=== PATIENT | male | born 1940 | race Caucasian/White ===

== ENCOUNTER → 2017-12-12 09:28 | Outpatient (CLI) | payer MEDICARE, BC, SELFPAY ==
[2017-12-12 10:37] LABS: PSA,Total - Annual Screen 2.33 ng/mL (0.00-4.00)
== END ==
PROVIDERS: Family Provider Family Medicine; PCP Family Medicine; Visit Provider Urology
DX: Z12.5 Encounter for screening for malignant neoplasm of prostate (principal)
CPT/HCPCS: 36415; 84153; G0103

== ENCOUNTER → 2017-12-18 08:57 | Outpatient (CLI) | payer MEDICARE, BC, SELFPAY ==
[2017-12-18 10:11] LABS: AST(SGOT) 14 U/L (15-37); Alanine Aminotransfer ALT/SGPT 20 U/L (16-61); Albumin, Serum 3.7 g/dL (3.2-5.0); Alkaline Phosphatase 71 U/L (45-117); Bilirubin, Direct 0.13 mg/dL (0.00-0.30); Cholesterol 188 mg/dL (200); Globulin 3.3 g/dL (2.2-4.2); High Density Lipoprotein 62 mg/dL; Triglycerides 164 mg/dL; Very Low Density Lipoprotein 33 mg/dL (5-40)
== END ==
PROVIDERS: Family Provider Family Medicine; PCP Family Medicine; Visit Provider Internal Medicine Cardiovascular Disease
DX: I25.2 Old myocardial infarction (principal)
CPT/HCPCS: 36415; 80061; 80076

== ENCOUNTER 2017-12-26 13:09 | Emergency (ER) | payer MEDICARE, BC, SELFPAY ==
[2017-12-26 13:11] VITALS: BP 133/73; PULSE 76; RESP 16; TEMP 36.8; O2SAT 96; BMI 26.7
--- NOTE | 2017-12-26 13:36 | NURSING ---
NO LW OR POA
--- NOTE | 2017-12-26 14:23 | RAD_ITS ---
STUDY: X-RAY - RIGHT SHOULDER REASON FOR EXAM: Male, 77 years old. Chronic left shoulder pain. Decreased range of motion. TECHNIQUE: 4 view(s) of the shoulder. COMPARISON: None. FINDINGS: There is mild degenerative arthrosis of the glenohumeral articulation. There is hypertrophic osteoarthrosis of the acromioclavicular joint with inferior osseous spur formation. Normal acromion. Normal humeral head and visualized proximal humerus. The soft tissue structures are unremarkable. Normal visualized pulmonary apex. RAD/Shoulder min 2 Views IMPRESSION: Degenerative changes of the shoulder joint. Electronically Signed: Mode Serrano MD at 15:39 EST Tel [phone], Service support ,
[2017-12-26] MEDS: HYDROcodone Bitartrate/Apap 5/325 Tablet PO (14:35)
--- NOTE | 2017-12-26 15:08 | ED.VISSUMM ---
- ER Visit Summary Date of Service: 12/26/17 Chief Complaint: Acute right shoulder pain throwing an object History of Present Illness: The patient is a 77 M who is right-handed. He presents with right shoulder pain throwing an object. He localizes the pain to the proximal right shoulder. He has history of rheumatoid arthritis. He denies history of rotator cuff injury or impingement syndrome. He denies any paresthesia, anesthesia or motor weakness. He denies cough, shortness of breath, difficulty breathing or pleuritic chest pain. He denies chest heaviness, tightness or any type of discomfort. There is no history of direct trauma. Physical Examination: Appears uncomfortable. Blood pressure slightly elevated 133/73. Patient complains of pain palpation over the proximal humerus. He is able to AB duct to 90?. Abduction past 90? because of discomfort. He has a negative drop test. Axillary, median, radial and ulnar function intact. There is no pain the patient over the AC joint or clavicle. There is no outward signs of direct trauma. Heart is regular without murmur, gallop or rub. S1 and S2 are normal. Lungs are clear to auscultation with good movement of air bilaterally. Test Results: Three-view x-ray of the shoulder was obtained which reveals arthritic changes with no evidence of fracture, subluxation, dislocation or AC separation. Emergency Department Course and Treatment: Patient is elderly with history of diabetes and other medical problems he received a dose of [place] and a x-ray was obtained. Treatment Plan: Since there is no acute findings on x-ray will refer to orthopedics for reevaluation. He was referred to Dr. Henry Foster. This may represent a partial rotator cuff tear. Disposition: Analgesia, appropriate home-going instruction and outpatient orthopedic follow-up Impression: Acute right shoulder pain Probable rotator cuff partial tear This note was generated with [employer] dictation software. It may contain incorrect words, spelling, and punctuation that were not noted in review of the chart prior to signing ED Disposition - Plan for ED Patient: Disposition: Home or Assisted Living Chief Complaint: Upper Extremity Injury Instructions: ED Shoulder Pain UKO, ED Torn Rotator Cuff Prescriptions: Hydrocodone Bitart/Apap 5-325 [[place] 5MG-325MG] 1 tab PO Q6H PRN PRN 3 Days #10 tab PRN Reason: Pain Referrals: Lc Dowling MD [Primary Care Provider] - Henry Foster DO [STAFF PHYSICIAN] - 5-7 Days
--- NOTE | 2017-12-26 15:18 | ED.DCSUM_ITS ---
- ER Visit Summary Date of Service: 12/26/17 Chief Complaint: Acute right shoulder pain throwing an object History of Present Illness: The patient is a 77 M who is right-handed. He presents with right shoulder pain throwing an object. He localizes the pain to the proximal right shoulder. He has history of rheumatoid arthritis. He denies history of rotator cuff injury or impingement syndrome. He denies any paresthesia, anesthesia or motor weakness. He denies cough, shortness of breath , difficulty breathing or pleuritic chest pain. He denies chest heaviness, tightness or any type of discomfort. There is no history of direct trauma. Physical Examination: Appears uncomfortable. Blood pressure slightly elevated 133/73. Patient complains of pain palpation over the proximal humerus. He is able to AB duct to 90?. Abduction past 90? because of discomfort. He has a negative drop test. Axillary, median, radial and ulnar function intact. There is no pain the patient over the AC joint or clavicle. There is no outward signs of direct trauma. Heart is regular without murmur, gallop or rub. S1 and S2 are normal. Lungs are clear to auscultation with good movement of air bilaterally. Test Results: Three-view x-ray of the shoulder was obtained which reveals arthritic changes with no evidence of fracture, subluxation, dislocation or AC separation. Emergency Department Course and Treatment: Patient is elderly with history of diabetes and other medical problems he received a dose of [place] and a x-ray was obtained. Treatment Plan: Since there is no acute findings on x-ray will refer to orthopedics for reevaluation. He was referred to Dr. Henry Foster. This may represent a partial rotator cuff tear. Disposition: Analgesia, appropriate home-going instruction and outpatient orthopedic follow-up Impression: Acute right shoulder pain Probable rotator cuff partial tear This note was generated with [employer] dictation software. It may contain incorrect words, spelling, and punctuation that were not noted in review of the chart prior to signing ED Disposition - Plan for ED Patient: Disposition: Home or Assisted Living Chief Complaint: Upper Extremity Injury Instructions: ED Shoulder Pain UKO, ED Torn Rotator Cuff Prescriptions: Hydrocodone Bitart/Apap 5-325 [[place] 5MG-325MG] 1 tab PO Q6H PRN PRN 3 Days #10 tab PRN Reason: Pain Referrals: Lc Dowling MD [Primary Care Provider] - Henry Foster DO [STAFF PHYSICIAN] - 5-7 Days
[2017-12-26 15:31] VITALS: BP 115/84; RESP 18
== END 2017-12-26 15:33 | disposition home or self-care (01) ==
PROVIDERS: Emergency Provider Emergency Medicine; Family Provider Family Medicine; PCP Family Medicine
DX: S46.011A Strain of muscle(s) and tendon(s) of the rotator cuff of right shoulder, initial encounter (principal); M25.511 Pain in right shoulder; X50.0XXA Overexertion from strenuous movement or load, initial encounter; Y93.9 Activity, unspecified; Y92.9 Unspecified place or not applicable; Y99.9 Unspecified external cause status; E11.9 Type 2 diabetes mellitus without complications; M06.9 Rheumatoid arthritis, unspecified; I10 Essential (primary) hypertension; N40.0 Benign prostatic hyperplasia without lower urinary tract symptoms; Z79.84 Long term (current) use of oral hypoglycemic drugs; Z79.82 Long term (current) use of aspirin; Z79.899 Other long term (current) drug therapy; I25.2 Old myocardial infarction
CPT/HCPCS: 73030; 99283

== ENCOUNTER → 2018-04-27 14:32 | Outpatient (CLI) | payer MEDICARE, BC, SELFPAY ==
--- NOTE | 2018-04-27 14:35 | ECHOD_ITS ---
Reason For Study: ARRHYTHMIA Procedure This was a 2D Doppler, Color Flow transthoracic echocardiogram. The study was technically difficult. Due to arrhythmia. Exam performed in department. Left Ventricle Normal size and thickness. The estimated ejection fraction is 65 %. Stage 1 diastolic dysfunction. No regional wall motion abnormalities noted. Right Ventricle Normal size and thickness. Normal systolic function. Atria The left atrium is mildly enlarged. Normal right atrium. Normal atrial septum. Mitral Valve The mitral valve is structurally normal. No prolapse or stenosis seen. Trivial mitral valve insufficiency. Tricuspid Valve Normal tricuspid valve. Trivial tricuspid valve insufficiency. Right ventricular systolic pressure estimated to be 30 mmHg. Aortic Valve Normal aortic valve. Trisinus/trileaflet aortic valve. Pulmonic Valve Normal pulmonic valve. Trivial pulmonic valve insufficiency. Great Vessels Normal aortic root. Normal arch. Normal inferior vena cava. Inferior vena cava collapse with sniff. Pericardium/Pleural No pericardial effusion. MMode/2D Measurements & Calculations LVIDd: 4.7 cm IVSd: 1.1 cm Ao root diam: 3.3 cm LVIDs: 3.4 cm LVPWd: 1.1 cm LA dimension: 3.8 cm RVDd: 3.5 cm FS: 28.9 % LAV(MOD-bp): 67.2 ml LA A4 area: 22.6 cm2 RA A4 area: 15.9 cm2 LAV(MOD-bp) Indexed: 34.1 ml/m2 LAV(MOD-sp2): 63.3 ml LAV(MOD-sp4): 69.0 ml Doppler Measurements & Calculations MV E max jose: 99.3 cm/sec Lat Peak E' Jose: 8.9 cm/sec Med Peak E' Jose: 9.4 cm/sec MV A max jose: 147.3 cm/sec E/E' lat: 11.1 E/E' med: 10.5 MV E/A: 0.67 Ao V2 max: 125.5 cm/sec LV V1 max: 90.8 cm/sec PA V2 max: 99.3 cm/sec Ao max P.3 mmHg LV V1 max P.3 mmHg TR max jose: 250.1 cm/sec TR max P.0 mmHg Interpretation Summary The estimated ejection fraction is 65 %. Stage 1 diastolic dysfunction. The left atrium is mildly enlarged. Trivial tricuspid valve insufficiency. Right ventricular systolic pressure estimated to be 30 mmHg. There is no comparison study available. Ordering Physician: Bo Song Referring Physician: Lc Dowlign Performed By: Bernadine Huang RDCS, RVT
== END ==
PROVIDERS: Family Provider Family Medicine; PCP Family Medicine; Visit Provider Internal Medicine Cardiovascular Disease
DX: I47.2 Ventricular tachycardia (principal); R00.1 Bradycardia, unspecified; I25.10 Atherosclerotic heart disease of native coronary artery without angina pectoris; I25.2 Old myocardial infarction; Z95.5 Presence of coronary angioplasty implant and graft
CPT/HCPCS: 93306

== ENCOUNTER → 2018-05-04 10:17 | Outpatient (CLI) | payer MEDICARE, BC, SELFPAY ==
--- NOTE | 2018-05-04 10:19 | STE_ITS ---
Reason For Study: ARRHYTHMIA Stress Results Protocol: Vic Protocol Maximum Predicted HR: 144 bpm Target HR: 122 bpm% Max imum Predicted HR: 108 % DurationHeart Rate Stage (mm:ss) (bpm) BP BASELINE 75 138/68 STAGE 1 3:00 98 160/68 STAGE 2 3:00 11 3 172/62 STAGE 3 1:30 15 5 / RECOVERY 92 130/60 Stress Duration: 7:30 mm:ss Maximum Stress HR: 155 bpm Baseline Echocardiogram Findings The estimated ejection fraction is 60 %. Stress Echo Wall motion Data Resting WMIntermediate WMStress WM Resting Wall Motion Wall Motion Stress No regional wall motion No regional wall motion abnormalities noted. abnormalities noted. EKG Data Normal intervals are noted. The patient exercised according to the regular Vic protocol for a total duration of 7:30. The maximum heart rate attained was 146 beats per minute. This was 101% of maximum predicted heart rate. The patient exercised into stage 3 of the Vic protocol. During stress, there were no ST or T wave changes noted to suggest ischemia. Interpretation Summary The estimated ejection fraction is 60 %. Normal, adequate, treadmill echocardiogram. Negative for ischemia by EKG and echocardiographic criteria. No anginal symptoms noted. Frequent PVCs during exercise and into recovery. Average exercise capacity for age. Appropriate blood pressure response to exercise. Final LVEF is 75%. No complications. Ordering Physician: Bo Song Referring Physician: Bo Song Performed By: Jon Whitaker RCS
== END ==
PROVIDERS: Family Provider Family Medicine; PCP Family Medicine; Visit Provider Internal Medicine Cardiovascular Disease
DX: I47.2 Ventricular tachycardia (principal); I25.10 Atherosclerotic heart disease of native coronary artery without angina pectoris; I49.8 Other specified cardiac arrhythmias; Z95.5 Presence of coronary angioplasty implant and graft
CPT/HCPCS: 93017; 93350

== ENCOUNTER → 2018-07-04 13:00 | Outpatient (CLI) | payer MEDICARE, BC, SELFPAY ==
--- NOTE | 2018-07-04 13:04 | RAD_ITS ---
STUDY: X-RAY - PELVIS AND RIGHT HIP REASON FOR EXAM: Male, 77 years old. Pain TECHNIQUE: Radiological exam, hip, unilateral, with pelvis when performed; 2 or 3 views. COMPARISON: None. FINDINGS: There is a non-specific bowel gas pattern. Normal visualized soft tissue structures. Normal bilateral iliac wings, sacroiliac joints and visualized sacrum. Normal bilateral superior and inferior pubic rami. Normal pubic symphysis. Normal bilateral ischial tuberosities. Normal visualized femoral head. Normal acetabulum. Normal hip joint. RAD/HIP, UNI W/ Pelvis 2-3 Views IMPRESSION: Normal x-ray examination of the pelvis and hip. Electronically Signed: Kenneth Youssef MD at 4:36 EDT , Service support ,
== END ==
PROVIDERS: Family Provider Family Medicine; PCP Family Medicine; Visit Provider Family Medicine
DX: M25.551 Pain in right hip (principal)
CPT/HCPCS: 73502

== ENCOUNTER → 2018-10-24 15:26 | Outpatient (CLI) | payer MEDICARE, BC, SELFPAY ==
[2018-10-24 18:39] LABS: Anion Gap 8 (5-15); BUN 24 mg/dL (7-18); BUN/Creat Ratio 29.2 RATIO (10-20); Calcium,Total 8.7 mg/dL (8.5-10.1); Chloride 103 mmol/L (98-107); Creatinine, Serum 0.82 mg/dL (0.70-1.30); EST Glomerular Filtration Rate 97 mL/min (>60); Est Glom Filt Rate - Afr Amer 117 mL/min (>60); Glucose 222 mg/dL (74-106); Sodium Level 137 mmol/L (136-145); Thyroid Stim Hormone (TSH) 1.87 uIU/mL (0.358-3.74)
[2018-10-24 18:54] LABS: Vitamin D,25 Hydroxy 20.4 ng/mL (29.95-100.01)
== END ==
PROVIDERS: Family Provider Family Medicine; PCP Family Medicine; Visit Provider Family Medicine
DX: E11.9 Type 2 diabetes mellitus without complications (principal); I49.3 Ventricular premature depolarization; E55.9 Vitamin D deficiency, unspecified
CPT/HCPCS: 36415; 80048; 82306; 83735; 84443

== ENCOUNTER → 2018-12-03 09:21 | Outpatient (CLI) | payer MEDICARE, BC, SELFPAY ==
[2018-11-26 15:23] VITALS: BMI 27.1
[2018-12-03 11:05] LABS: AST(SGOT) 13 U/L (15-37); Alanine Aminotransfer ALT/SGPT 23 U/L (16-61); Albumin, Serum 3.7 g/dL (3.2-5.0); Alkaline Phosphatase 91 U/L (45-117); Bilirubin, Direct 0.17 mg/dL (0.00-0.30); Cholesterol 170 mg/dL (200); Globulin 3.6 g/dL (2.2-4.2); High Density Lipoprotein 54 mg/dL; Protein, Total 7.3 g/dL (6.4-8.2); Triglycerides 293 mg/dL; Very Low Density Lipoprotein 59 mg/dL (5-40)
== END ==
PROVIDERS: Family Provider Family Medicine; PCP Family Medicine; Referring Provider Internal Medicine Cardiovascular Disease; Visit Provider Internal Medicine Cardiovascular Disease
DX: E78.5 Hyperlipidemia, unspecified (principal); I25.2 Old myocardial infarction
CPT/HCPCS: 36415; 80061; 80076

== ENCOUNTER 2018-12-14 16:47 | Inpatient (IN) | payer MEDICARE, BC, SELFPAY ==
[2018-11-26 15:23] VITALS: BMI 27.1
[2018-12-14] VITALS (10 sets, daily range): BP systolic 123–160; BP diastolic 54–78; PULSE 89–100; RESP 16–25; TEMP 37.1–38.4; O2SAT 93–98; BMI 28.1; BMI 28.2; BMI 27.3
--- NOTE | 2018-12-14 17:11 | RAD_ITS ---
STUDY: X-RAY CHEST REASON FOR EXAM: Male, 77 years old. Chest pain. TECHNIQUE: Single AP portable upright view of the chest. COMPARISON: IV contrast-enhanced CT chest October 09, 2015. FINDINGS: Moderate elevation of the right diaphragm. Vague density in the right base just above the diaphragm is likely subsegmental atelectasis or scarring. There is no demonstrated pleural abnormality. Normal size heart. Normal mediastinum and jean-claude. Normal visualized pulmonary arteries. Normal visualized aortic arch and descending thoracic aorta. There are multilevel degenerative changes of the visualized thoracic spine. Normal visualized ribs, clavicles, and shoulders. There is no demonstrated abnormality of the visualized soft tissue structures of the upper abdomen. RAD/Chest 1 View (Portable) IMPRESSION: Minor subsegmental scarring or atelectasis in the right lung base with mild associated elevation of the right diaphragm. Electronically Signed: Ricardo Jacinto MD at 18:13 EST , Service support ,
--- NOTE | 2018-12-14 17:11 | EKG12_ITS ---
Test Reason : CP Blood Pressure : / mmHG Vent. Rate : 098 BPM Atrial Rate : 098 BPM P-R Int : 192 ms QRS Dur : 080 ms QT Int : 322 ms P-R-T Axes : 056 008 044 degrees QTc Int : 411 ms Sinus rhythm with occasional Premature ventricular complexes Possible Left atrial enlargement Left ventricular hypertrophy Abnormal ECG Confirmed by MIC MONSIVAIS, MARCIE ([id number]), web content editor SONYA JOHNSON ([id number]) on 12/18/2018 4:44:03 PM Referred By: ANIBAL Confirmed By:MARCIE HAILE MD
--- NOTE | 2018-12-14 17:30 | ED.DCSUM_ITS ---
- ER Visit Summary Date of Service: 12/14/18 Chief Complaint: Chest pain and generalized weakness History of Present Illness: The patient is a 77 M your prior NM with one cardiac stent. Takes a daily aspirin. Patient states he has had chest pain like someone pushing on his chest for the last couple days. Intermittent. Currently his pain is a 2 out of 10 was previously 6-8 out of 10. He denies any history of DVT or PE. He denies any leg pain or swelling. No recent travel, surgery or immobilization. Also he is developed a fever today. Denies nausea, vomiting or diarrhea. He has had some chills. Just the other day had a cystoscopy. Physical Examination: Older male no acute distress. Vital signs stable. He does have a fever of 101. Pulse ox 94% on room air no hypoxia. No distress. H EENT exam is unremarkable. Neck nontender. No lymphadenopathy. Lungs clear to auscultation bilaterally. Heart regular rhythm no murmur rate about 95. Chest wall nontender. Abdomen soft nontender. Normal bowel sounds no peritoneal signs. Patient is moving all 4 extremities. Calves are nontender without edema or cords. Back is nontender. Equal symmetrical radial pulses. Neurologically is awake and alert with no focal deficits. Test Results: EKG shows a sinus rhythm at a rate of 98 with occasional PVCs. No signs of NM or ischemia. Chest x-ray portable one view shows no acute abnormality. Elevated right hemidiaphragm. Read both by myself and radiologist. CBC normal white count of 10. Hemoglobin 16. Chemistries unremarkable. UA no signs of infection. Troponin normal. Emergency Department Course and Treatment: Cardiac workup along with a urinalysis for his fever. Treatment Plan: Repeat exam patient is doing well at 1840. We discussed all his test results. I also spoke to the hospitalist about admission to be ruled out. Disposition: Admission Impression: Acute chest pain of uncertain etiology History of CAD with prior NM and one stent Fever This note was generated with [employer] dictation software. It may contain incorrect words, spelling, and punctuation that were not noted in review of the chart prior to signing ED Disposition - Plan for ED Patient: Referrals: Lc Dowling MD [Primary Care Provider] -
[2018-12-14 17:40] LABS: Absolute Lymphocyte Count 0.52 X10^3/ul (0.83-4.51); Absolute Neutrophil Count 9.6 X10^3/uL (2.0-7.7); Basophil# 0.01 X10^3/uL; Basophil% 0.1 % (0-1); Hematocrit 46.7 % (40-54); Lymphocyte # 0.52 X10^3/ul (4.0); Lymphocyte % 4.9 % (19-41); Mean Corp Hgb Conc 34.3 g/gl (32-36); Mean Corpuscular Hgb 31.7 pg (27.0-32.0); Mean Corpuscular Volume 92.7 fL (80-94); Mean Platelet Vol. 10.8 fl (6.2-12.0); Monocyte# 0.51 X10^3/uL; Monocyte% 4.8 % (0-10); Neutrophil # 9.61 X10^3/uL (2.7-7.7); Platelet Count 214 K/mm3 (150-450); RBC Distribution Width CV 12.5 % (11.6-14.6); RBC Distribution Width SD 41.5 fl (35.1-43.9); Red Blood Count 5.04 M/mm3 (4.6-6.2); White Blood Count 10.7 K/mm3 (4.4-11.0)
[2018-12-14 17:42] LABS: Differential Indicated SCAN CRITERIA MET; POSITIVE COUNT NO; POSITIVE DIFFERENTIAL YES; POSITIVE MORPHOLOGY NO
[2018-12-14 17:45] LABS: Anion Gap 9 (5-15); BUN 20 mg/dL (7-18); BUN/Creat Ratio 20.5 RATIO (10-20); Calcium,Total 9.3 mg/dL (8.5-10.1); Chloride 102 mmol/L (98-107); Creatinine, Serum 0.97 mg/dL (0.70-1.30); EST Glomerular Filtration Rate 79 mL/min (>60); Est Glom Filt Rate - Afr Amer 96 mL/min (>60); Estimated Creatinine Clearance 62.68 ml/min; Glucose 270 mg/dL (74-106); Potassium 4.2 mmol/L (3.5-5.1); Sodium Level 137 mmol/L (136-145)
[2018-12-14 18:01] LABS: Bacteria 0 SEEN /hpf (None Seen); Red Blood Cells-Urine 0 SEEN /hpf (0-5); Squamous Epithelial Cells - UA 0 SEEN /hpf (0-5)
[2018-12-14 18:08] LABS: Color, Urine Yellow (Yellow); Glucose, Dipstick 250 mg/dl (Normal); Ketone-Dipstick 5 mg/dl (Negative); Leukocyte Esterase-Dipstick Negative /ul (Negative); Nitrite-Dipstick Negative (Negative); Occult Blood-Urine 10 /ul (Negative); Protein-Dipstick 30 mg/dl (Negative); Specific Gravity, Urine 1.025 (1.002-1.030); Urine Bilirubin Dipstick Negative (Negative); Urine Clarity Clear (Clear); Urine Urobilinogen Normal (Normal)
[2018-12-14 18:16] LABS: White Blood Cells 0-5 SEEN /hpf (0-5)
[2018-12-14 18:17] LABS: Mucous, Urine RARE /hpf (<or=2+)
[2018-12-14 18:23] LABS: Platelet Estimate ADEQUATE (ADEQ); Red Cell Morphology NORM C+C NORMAL (NORM C&C)
--- NOTE | 2018-12-14 19:53 | EKG12_ITS ---
Test Reason : CP ADMISSION Blood Pressure : / mmHG Vent. Rate : 085 BPM Atrial Rate : 085 BPM P-R Int : 192 ms QRS Dur : 088 ms QT Int : 348 ms P-R-T Axes : 062 012 042 degrees QTc Int : 414 ms Sinus rhythm with frequent Premature ventricular complexes Possible Left atrial enlargement Borderline ECG Confirmed by YAMILEX MONSIVAIS, ESTEPHANIE ([id number]), newspaper editor managing SONYA JOHNSON ([id number]) on 12/19/2018 10:57:20 AM Referred By: CORY Confirmed By:ESTEPHANIE KAMINSKI MD
--- NOTE | 2018-12-14 20:16 | PCM.HP.STD ---
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 He has a history of coronary artery disease with a stent to the right coronary artery in 2007 in [place]. He had a stress echo done here at this institution in April 2018 which was normal. And he saw his cut lace machine operator in early November and was doing okay without any chest pain. 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 He denies any radiation of this pain though he says that it is somewhat palpatory all over his rib cage. In the ER he was found to be febrile though he had a normal urine analysis and chest x-ray and denies any recent respiratory illness. He also had an EKG which was unremarkable and a normal initial troponin. There is a family history of coronary artery disease with his father having his first heart attack in his late 40s early 50s. Past Medical History Past Medical History (Chronic Problems): Chronic Problems (Last Reviewed 11/26/18 @ 15:16 by Teodora Merlos) H/O right coronary artery stent placement (Chronic 06/09/08) MARK to RCA w 3.0 x 23 mm Promus 06/09/2008 @ [facility] in [place], [place] Old myocardial infarction (Chronic) 2007 Sinus bradycardia (Chronic) Ventricular tachycardia (Chronic) Hyperlipidemia (Chronic) Atherosclerotic heart disease of [place] coronary artery without angina pectoris (Chronic) MARK to RCA w 3.0 x 23 mm Promus 06/09/2008 BPH (benign prostatic hyperplasia) (Chronic) HTN (hypertension) (Chronic) Diabetes mellitus (Chronic) Medical History: Medical History (Last Reviewed 11/26/18 @ 15:16 by Teodora Merlos) Old myocardial infarction (Chronic) I25.2 2008 Sinus bradycardia (Chronic) R00.1 Ventricular tachycardia (Chronic) I47.2 Hyperlipidemia (Chronic) E78.5 Atherosclerotic heart disease of [place] coronary artery without angina pectoris (Chronic) I25.10 MARK to RCA w 3.0 x 23 mm Promus 06/09/2008 HTN (hypertension) (Chronic) I10 Diabetes mellitus (Chronic) E11.9 Allergies amoxicillin Allergy (Verified 12/14/18 16:54) Unknown lactose Adverse Reaction (Intermediate, Verified 12/14/18 16:54) GI issues Tyrovml-Ned-Gfp Reductase Inhibitor Adverse Reaction (Verified 12/14/18 16:54) Myalgia Home Medications: Ambulatory Orders Medication Instructions Recorded Metformin HCl [Glucophage] 500 mg PO TIDCM 10/06/15 aspirin 325 mg tablet 325 mg PO DAILY 11/03/17 tramadol 50 mg tablet 50 mg PO DAILY 11/03/17 Cholecalciferol (Vitamin D3) 2,000 unit PO DAILY 12/14/18 [Vitamin D3] Ezetimibe 10 mg PO DAILY 12/14/18 Naproxen Sodium [Aleve] 220 mg PO PRN PRN 12/14/18 Surgical History: Surgical History (Last Reviewed 11/26/18 @ 15:16 by Tedoora Merlos) H/O right coronary artery stent placement (Chronic) Onset Date: 06/09/08 Z95.5 MARK to RCA w 3.0 x 23 mm Promus 06/09/2008 @ [facility] in [place], [place] History of left heart catheterization Onset Date: 11/14/13 Z98.890 @ [facility] Hx of cholecystectomy Z98.890, Z90.49 S/P TURP (transurethral resection of prostate) Onset Date: ~2014 Z90.79 Smoking Status: Former smoker Tobacco Use: Cigarettes Alcohol: None Drugs: None - *Family History Maternal Family History: Family History (Last Reviewed 11/26/18 @ 15:16 by Teodora Merlos) Father CAD (coronary artery disease) Mother CAD (coronary artery disease) Hyperlipidemia Brother CAD (coronary artery disease) Diabetes Sister Hypertension Review of Systems Constitutional: Reports: Fatigue. Denies: Chills, Fever, Weight Change HEENT: Denies: Head Aches, Sinus Congestion, Sinus Drainage Cardiovascular: Reports: Chest Pain. Denies: Palpitations Respiratory: Reports: Shortness of Breath. Denies: Cough, Shortness of breath at rest, Sputum production Gastrointestinal: Denies: Abdominal Pain, Nausea, Vomiting Genitourinary: Denies: Dysuria Musculoskeletal: Reports: Joint stiffness, Muscle pain. Denies: Joint Pain, Joint Tenderness Skin: Denies: Rash, Wounds Neurological: Denies: Numbness, Tingling, Focal weakness Psychiatric: Denies: Anxiety, Depression Hematologic/ Lymphatic: Denies: Easy Bruising, Easy Bleeding VTE Information - Inpt Only VTE Present on Admission: No Patient Problems: Active and Suspected Problems (Last Reviewed 11/26/18 @ 15:16 by Teodora Merlos) Chest pain (Acute) - Physical Exam General: Alert, Oriented x3, Cooperative, No apparent distress HEENT: Atraumatic, PERRLA, EOMI, Normocephalic Oral: Moist Mucosa Neck: Supple, No JVD, Trachea Midline Lungs: Clear to auscultation, Normal air movement, No rhonchi, No wheeze, No rales Cardiovascular: Regular rate, Regular Rhythm, Normal S1, Normal S2, No murmurs Abdomen: Soft, Non Tender, Non-Distended, No Hepato-splenomegaly Extremities: No edema, Capillary Refill Less than 3 Seconds Skin: No rashes, No breakdown Neurological: Neuro grossly intact, Sensory exam intact to light touch and pain Psych/Mental Status: Normal Affect, Appropriate Vital Signs Temp Pulse Resp BP Pulse Ox 99.5 F H 92 16 124/54 H 94 12/14/18 19:56 12/14/18 19:56 12/14/18 19:56 12/14/18 19:56 12/14/18 19:56 Oxygen Delivery Method Room Air Weight: 179 lb 7.3 oz Body Mass Index (BMI) 27.3 Finger Stick Blood Glucose 146 Laboratory Tests Past 24 Hrs 12/14/18 12/14/18 12/14/18 16:50 16:50 17:55 WBC 10.7 RBC 5.04 Hgb 16.0 Hct 46.7 MCV 92.7 MCH 31.7 MCHC 34.3 RDW 12.5 RDW Differential 41.5 Plt Count 214 MPV 10.8 Immature Gran % (Auto) 0.200 Neut % (Auto) 90.0 H Lymph % (Auto) 4.9 L Chambers % (Auto) 4.8 Eos % (Auto) 0.0 Baso % (Auto) 0.1 Absolute Neuts (auto) 9.6 H Absolute Lymphs (auto) 0.52 L Total Counted Not Reportable Differential Comment Platelet Estimate ADEQUATE RBC Morphology NORM C+C Sodium 137 Potassium 4.2 Chloride 102 Carbon Dioxide 26.0 Anion Gap 9 BUN 20 H Creatinine 0.97 Estim Creat Clear Calc 62.68 Est GFR (MDRD) Af Amer 96 Est GFR (MDRD) Non-Af 79 BUN/Creatinine Ratio 20.5 H Glucose 270 H Calcium 9.3 Troponin I < 0.015 Urine Color Yellow Urine Clarity Clear Urine pH 5.0 Ur Specific [place] 1.025 Urine Protein 30 H Urine Glucose (UA) 250 H Urine Ketones 5 H Urine Occult Blood 10 H Urine Nitrite Negative Urine Bilirubin Negative Urine Urobilinogen Normal Ur Leukocyte Esterase Negative Urine RBC 0 SEEN Urine WBC 0-5 SEEN Ur Squamous Epith Cells 0 SEEN Urine Bacteria 0 SEEN Urine Mucus RARE Assessment/Plan All Active Problems (Last Reviewed 11/26/18 @ 15:16 by Teodora Merlos) Chest pain (Acute) 1. Chest pain with SOB/CAD status post stent to the RCA -We will consult cardiology since he had a stress echo back in April which was normal and he has new onset chest pain -Because of his fever and his normal UA and chest x-ray will run a respiratory panel as well as influenza to see if there is another reason for this fever -Serial cardiac enzymes -Continue with his aspirin, he does not tolerate statins so can resume his Zetia 2. DM 2 -He is on metformin at home which will be discontinued here -Accu-Cheks and sliding scale insulin 3. BPH -He has had multiple procedures over the years to correct this. -He had a procedure yesterday by Dr. Giordano, which explains why his UA findings -It does not appear that he is on any medications for this DVT: Lovenox Code Visit OBSV E&M: 14184 Initial observation care L3
--- NOTE | 2018-12-14 20:27 | HP.PCM_ITS ---
Problem List (1) Chest pain Status: Acute (2) H/O right coronary artery stent placement Status: Chronic Comment: MARK to RCA w 3.0 x 23 mm Promus 06/09/2008 @ [facility] in [place], [place] (3) Old myocardial infarction Status: Chronic Comment: 2007 (4) Hyperlipidemia Status: Chronic (5) BPH (benign prostatic hyperplasia) Status: Chronic (6) HTN (hypertension) Status: Chronic (7) Diabetes mellitus Status: Chronic History of Present Illness Date of Admission: 12/14/18 Chief Complaint: Chest pain The patient is a 77 year old M with a PMH as below who presents with chest pain, shortness of breath, and body aches for the last 2 or 3 days. He has a history of coronary artery disease with a stent to the right coronary artery in 2007 in [place]. He had a stress echo done here at this institution in April 2018 which was normal. And he saw his radio communications mechanician in early November and was doing okay without any chest pain. 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 He denies any radiation of this pain though he says that it is somewhat palpatory all over his rib cage. In the ER he was found to be febrile though he had a normal urine analysis and chest x-ray and denies any recent respiratory illness. He also had an EKG which was unremarkable and a normal initial troponin. There is a family history of coronary artery disease with his father having his first heart attack in his late 40s early 50s. Past Medical History Past Medical History (Chronic Problems): Chronic Problems (Last Reviewed 11/26/18 @ 15:16 by Teodora Merlos) H/O right coronary artery stent placement (Chronic 06/09/08) MARK to RCA w 3.0 x 23 mm Promus 06/09/2008 @ [facility] in [place], [place] Old myocardial infarction (Chronic) 2007 Sinus bradycardia (Chronic) Ventricular tachycardia (Chronic) Hyperlipidemia (Chronic) Atherosclerotic heart disease of [place] coronary artery without angina pectoris (Chronic) MARK to RCA w 3.0 x 23 mm Promus 06/09/2008 BPH (benign prostatic hyperplasia) (Chronic) HTN (hypertension) (Chronic) Diabetes mellitus (Chronic) Medical History: Medical History (Last Reviewed 11/26/18 @ 15:16 by Teodora Merlos) Old myocardial infarction (Chronic) I25.2 2008 Sinus bradycardia (Chronic) R00.1 Ventricular tachycardia (Chronic) I47.2 Hyperlipidemia (Chronic) E78.5 Atherosclerotic heart disease of [place] coronary artery without angina pectoris (Chronic) I25.10 MARK to RCA w 3.0 x 23 mm Promus 06/09/2008 HTN (hypertension) (Chronic) I10 Diabetes mellitus (Chronic) E11.9 Allergies amoxicillin Allergy (Verified 12/14/18 16:54) Unknown lactose Adverse Reaction (Intermediate, Verified 12/14/18 16:54) GI issues [id number] Reductase Inhibitor Adverse Reaction (Verified 12/14/18 16:54) Myalgia Home Medications: Ambulatory Orders Medication Instructions Recorded Metformin HCl [Glucophage] 500 mg PO TIDCM 10/06/15 aspirin 325 mg tablet 325 mg PO DAILY 11/03/17 tramadol 50 mg tablet 50 mg PO DAILY 11/03/17 Cholecalciferol (Vitamin D3) 2,000 unit PO DAILY 12/14/18 [Vitamin D3] Ezetimibe 10 mg PO DAILY 12/14/18 Naproxen Sodium [Aleve] 220 mg PO PRN PRN 12/14/18 Surgical History: Surgical History (Last Reviewed 11/26/18 @ 15:16 by Teodora Merlos) H/O right coronary artery stent placement (Chronic) Onset Date: 06/09/08 Z95.5 MARK to RCA w 3.0 x 23 mm Promus 06/09/2008 @ [facility] in [place], [place] History of left heart catheterization Onset Date: 11/14/13 Z98.890 @ [facility] Hx of cholecystectomy Z98.890, Z90.49 S/P TURP (transurethral resection of prostate) Onset Date: ~2014 Z90.79 Smoking Status: Former smoker Tobacco Use: Cigarettes Alcohol: None Drugs: None - *Family History Maternal Family History: Family History (Last Reviewed 11/26/18 @ 15:16 by Teodora Merlos) Father CAD (coronary artery disease) Mother CAD (coronary artery disease) Hyperlipidemia Brother CAD (coronary artery disease) Diabetes Sister Hypertension Review of Systems Constitutional: Reports: Fatigue. Denies: Chills, Fever, Weight Change HEENT: Denies: Head Aches, Sinus Congestion, Sinus Drainage Cardiovascular: Reports: Chest Pain. Denies: Palpitations Respiratory: Reports: Shortness of Breath. Denies: Cough, Shortness of breath at rest, Sputum production Gastrointestinal: Denies: Abdominal Pain, Nausea, Vomiting Genitourinary: Denies: Dysuria Musculoskeletal: Reports: Joint stiffness, Muscle pain. Denies: Joint Pain, Joint Tenderness Skin: Denies: Rash, Wounds Neurological: Denies: Numbness, Tingling, Focal weakness Psychiatric: Denies: Anxiety, Depression Hematologic/ Lymphatic: Denies: Easy Bruising, Easy Bleeding VTE Information - Inpt Only VTE Present on Admission: No Patient Problems: Active and Suspected Problems (Last Reviewed 11/26/18 @ 15:16 by Teodora Merlos) Chest pain (Acute) - Physical Exam General: Alert, Oriented x3, Cooperative, No apparent distress HEENT: Atraumatic, PERRLA, EOMI, Normocephalic Oral: Moist Mucosa Neck: Supple, No JVD, Trachea Midline Lungs: Clear to auscultation, Normal air movement, No rhonchi, No wheeze, No rales Cardiovascular: Regular rate, Regular Rhythm, Normal S1, Normal S2, No murmurs Abdomen: Soft, Non Tender, Non-Distended, No Hepato-splenomegaly Extremities: No edema, Capillary Refill Less than 3 Seconds Skin: No rashes, No breakdown Neurological: Neuro grossly intact, Sensory exam intact to light touch and pain Psych/Mental Status: Normal Affect, Appropriate Vital Signs Temp Pulse Resp BP Pulse Ox 99.5 F H 92 16 124/54 H 94 12/14/18 19:56 12/14/18 19:56 12/14/18 19:56 12/14/18 19:56 12/14/18 19:56 Oxygen Delivery Method Room Air Weight: 179 lb 7.3 oz Body Mass Index (BMI) 27.3 Finger Stick Blood Glucose 146 Laboratory Tests Past 24 Hrs 12/14/18 12/14/18 12/14/18 16:50 16:50 17:55 WBC 10.7 RBC 5.04 Hgb 16.0 Hct 46.7 MCV 92.7 MCH 31.7 MCHC 34.3 RDW 12.5 RDW Differential 41.5 Plt Count 214 MPV 10.8 Immature Gran % (Auto) 0.200 Neut % (Auto) 90.0 H Lymph % (Auto) 4.9 L [place] % (Auto) 4.8 Eos % (Auto) 0.0 Baso % (Auto) 0.1 Absolute Neuts (auto) 9.6 H Absolute Lymphs (auto) 0.52 L Total Counted Not Reportable Differential Comment Platelet Estimate ADEQUATE RBC Morphology NORM C+C Sodium 137 Potassium 4.2 Chloride 102 Carbon Dioxide 26.0 Anion Gap 9 BUN 20 H Creatinine 0.97 Estim Creat Clear Calc 62.68 Est GFR (MDRD) Af Amer 96 Est GFR (MDRD) Non-Af 79 BUN/Creatinine Ratio 20.5 H Glucose 270 H Calcium 9.3 Troponin I < 0.015 Urine Color Yellow Urine Clarity Clear Urine pH 5.0 Ur Specific [place] 1.025 Urine Protein 30 H Urine Glucose (UA) 250 H Urine Ketones 5 H Urine Occult Blood 10 H Urine Nitrite Negative Urine Bilirubin Negative Urine Urobilinogen Normal Ur Leukocyte Esterase Negative Urine RBC 0 SEEN Urine WBC 0-5 SEEN Ur Squamous Epith Cells 0 SEEN Urine Bacteria 0 SEEN Urine Mucus RARE Assessment/Plan All Active Problems (Last Reviewed 11/26/18 @ 15:16 by Teodora Merlos) Chest pain (Acute) 1. Chest pain with SOB/CAD status post stent to the RCA -We will consult cardiology since he had a stress echo back in April which was normal and he has new onset chest pain -Because of his fever and his normal UA and chest x-ray will run a respiratory panel as well as influenza to see if there is another reason for this fever -Serial cardiac enzymes -Continue with his aspirin, he does not tolerate statins so can resume his Zetia 2. DM 2 -He is on metformin at home which will be discontinued here -Accu-Cheks and sliding scale insulin 3. BPH -He has had multiple procedures over the years to correct this. -He had a procedure yesterday by Dr. Giordano, which explains why his UA findings -It does not appear that he is on any medications for this DVT: Lovenox Code Visit OBSV E&M: 59135 Initial observation care L3
[2018-12-14] MEDS: Insulin Lispro 100 UNIT/ML INSULN.PEN SQ (22:53)
[2018-12-14 23:35] LABS: Bedside Glucose 235 mg/dL (70-110)
[2018-12-15] VITALS (16 sets, daily range): BP systolic 114–155; BP diastolic 51–74; PULSE 41–90; RESP 16–18; TEMP 36.6–37.3; O2SAT 94–99
--- NOTE | 2018-12-15 05:28 | NURSING ---
Patient is diaphoretic, he denies chest pain, shortness of breath. He states this happens at home every once in a while.
[2018-12-15 07:02] LABS: Absolute Lymphocyte Count 0.65 X10^3/ul (0.83-4.51); Absolute Neutrophil Count 4.5 X10^3/uL (2.0-7.7); Basophil# 0.01 X10^3/uL; Basophil% 0.2 % (0-1); Eosinophil# 0.01 X10^3/uL; Eosinophils% 0.2 % (0-5); Hematocrit 46.9 % (40-54); Hemoglobin 15.3 g/dl (13.0-16.5); Lymphocyte # 0.65 X10^3/ul (4.0); Lymphocyte % 11.2 % (19-41); Mean Corp Hgb Conc 32.6 g/gl (32-36); Mean Corpuscular Hgb 30.7 pg (27.0-32.0); Mean Corpuscular Volume 94.2 fL (80-94); Mean Platelet Vol. 10.8 fl (6.2-12.0); Monocyte# 0.58 X10^3/uL; Neutrophil # 4.54 X10^3/uL (2.7-7.7); Neutrophil % 78.2 % (47-70); Platelet Count 181 K/mm3 (150-450); RBC Distribution Width CV 12.5 % (11.6-14.6); RBC Distribution Width SD 42.9 fl (35.1-43.9); Red Blood Count 4.98 M/mm3 (4.6-6.2); White Blood Count 5.8 K/mm3 (4.4-11.0)
[2018-12-15 07:05] LABS: POSITIVE COUNT NO; POSITIVE DIFFERENTIAL NO; POSITIVE MORPHOLOGY NO
[2018-12-15 07:06] LABS: Bedside Glucose 285 mg/dL (70-110)
[2018-12-15 07:18] LABS: Anion Gap 9 (5-15); BUN 17 mg/dL (7-18); BUN/Creat Ratio 19.3 RATIO (10-20); Calcium,Total 8.6 mg/dL (8.5-10.1); Chloride 104 mmol/L (98-107); Creatinine, Serum 0.88 mg/dL (0.70-1.30); EST Glomerular Filtration Rate 89 mL/min (>60); Est Glom Filt Rate - Afr Amer 108 mL/min (>60); Estimated Creatinine Clearance 69.09 ml/min; Glucose 263 mg/dL (74-106); Potassium 3.8 mmol/L (3.5-5.1); Sodium Level 138 mmol/L (136-145)
[2018-12-15] MEDS: Insulin Lispro 100 UNIT/ML INSULN.PEN SQ ×4 (08:01→22:50)
[2018-12-15] MEDS: Ezetimibe 10 MG Tablet PO (08:11)
[2018-12-15] MEDS: Aspirin 325 MG Tablet PO (08:11)
[2018-12-15] MEDS: Enoxaparin 40 MG/0.4 ML Syringe SC (10:32)
[2018-12-15 11:15] LABS: Bedside Glucose 388 mg/dL (70-110)
--- NOTE | 2018-12-15 13:43 | PCM.CONS.C ---
Problem List (1) Chest pain Status: Acute (2) CAD S/P percutaneous coronary angioplasty Status: Chronic (3) Hyperlipidemia Status: Chronic (4) HTN (hypertension) Status: Chronic (5) Diabetes mellitus Status: Chronic (6) Fever Status: Acute Reason for Consult Date of Consultation: 12/15/18 History of Present Illness: The patient is a 77 year old White male with a previous history of underlying hyperlipidemia, hypertension, diabetes mellitus, status post acute myocardial injury/infarction status post diagnostic cardiac catheterization/PCI -2007-without PCI to the RCA with a 3.0 times 23 mm Promus drug eluding stent who presents for evaluation of chest discomfort and subsequent findings of fever. He states he had been doing well, off his usual daily activities without difficulty come up until recently. Recently he has noted chest discomfort as well as being more short of breath and dyspneic and being more tired and fatigued. He notes with his original event his concerns were shortness of breath/dyspnea and fatigue. He presented for further evaluation and care. He has denied ongoing orthopnea or PND or worsening peripheral pitting edema. There has been no near syncope or syncope. He was found to be febrile with a fever of 101. The etiology has been uncertain at this time. He states since his hospitalization he was noted episodes of diaphoresis. She has been undergoing evaluation with cardiac enzymes which have been negative. His ECG demonstrated sinus rhythm with PVCs with possible left atrial enlargement. On cardiac rhythm and I also see has had episodes of ventricular ectopy. [] Past Medical History Allergies/Adverse Reactions: Allergies amoxicillin Allergy (Verified 12/14/18 16:54) Unknown lactose Adverse Reaction (Intermediate, Verified 12/14/18 16:54) GI issues Ypzfsyz-Aif-Qtv Reductase Inhibitor Adverse Reaction (Verified 12/14/18 16:54) Myalgia Home Medications: Ambulatory Orders Medication Instructions Recorded Metformin HCl [Glucophage] 500 mg PO TIDCM 10/06/15 aspirin 325 mg tablet 325 mg PO DAILY 11/03/17 tramadol 50 mg tablet 50 mg PO DAILY 11/03/17 Cholecalciferol (Vitamin D3) 2,000 unit PO DAILY 12/14/18 [Vitamin D3] Ezetimibe 10 mg PO DAILY 12/14/18 Naproxen Sodium [Aleve] 220 mg PO PRN PRN 12/14/18 Past Medical History (Chronic Problems): Chronic Problems (Last Reviewed 11/26/18 @ 15:16 by Teodora Merlos) CAD S/P percutaneous coronary angioplasty (Chronic) H/O right coronary artery stent placement (Chronic 06/09/08) MARK to RCA w 3.0 x 23 mm Promus 06/09/2008 @ [facility] in [place], [place] Old myocardial infarction (Chronic) 2007 Sinus bradycardia (Chronic) Ventricular tachycardia (Chronic) Hyperlipidemia (Chronic) Atherosclerotic heart disease of [place] coronary artery without angina pectoris (Chronic) MARK to RCA w 3.0 x 23 mm Promus 06/09/2008 BPH (benign prostatic hyperplasia) (Chronic) HTN (hypertension) (Chronic) Diabetes mellitus (Chronic) - *Family History Maternal Family History: Family History (Last Reviewed 11/26/18 @ 15:16 by Teodora Merlos) Father CAD (coronary artery disease) Mother CAD (coronary artery disease) Hyperlipidemia Brother CAD (coronary artery disease) Diabetes Sister Hypertension Smoking Status: Former smoker Tobacco Use: Cigarettes Alcohol: None Drugs: None Review of Systems - Review of Systems General: Reports: Fever, Fatigue. Denies: Night Sweats Cardiovascular: Reports: Chest Discomfort, Shortness of Breath. Denies: Orthopnea, PND, Peripheral Edema, Palpitations, Lightheadedness, Dizziness, Near Syncope, Syncope Respiratory: Denies: Cough, Sputum Production, Hemoptysis Gastrointestinal: Denies: Hematemesis, Hematochezia, Melena Genitourinary: Denies: Dysuria, Hematuria Skin: Denies: Rash Subjectve: This is a 77-year-old white male who appears to be resting reasonably comfortably at the moment in no acute distress. Objective: Vital Signs Temp Pulse Resp BP Pulse Ox 98.3 F 69 18 114/55 L 96 12/15/18 08:38 12/15/18 10:55 12/15/18 08:38 12/15/18 08:38 12/15/18 08:38 Oxygen Delivery Method Room Air Weight: 179 lb 7.3 oz Body Mass Index (BMI) 27.3 Finger Stick Blood Glucose 146 Intake and Output for Last 24 Hours 12/13/18 12/14/18 12/15/18 23:59 23:59 23:59 Intake Total 460 / 460 Balance 460 / 460 General: Awake, Alert, Oriented x 3, Cooperative, No Acute Distress HEENT: Atraumatic, Normocephalic, PERRL, EOMI, Sclera Non Icteric Oral: Moist Mucosa Neck: Supple, Good ROM, No JVD Lungs: Clear to auscultation Cardiovascular: Regular Rhythm, Premature Ectopic Beats, Normal S1, Normal S2 Vascular: No Carotid Bruits Abdomen: Bowel Sounds Present, Soft, Non Tender Extremities: No edema Neurological: No Focal Motor or Sensory Deficit Psych/Mental Status: Appropriate 12/14/18 16:50: WBC 10.7, RBC 5.04, Hgb 16.0, Hct 46.7, MCV 92.7, MCH 31.7, MCHC 34.3, RDW 12.5, RDW Differential 41.5, Plt Count 214, MPV 10.8, Immature Gran % (Auto) 0.200, Neut % (Auto) 90.0 H, Lymph % (Auto) 4.9 L, [place] % (Auto) 4.8, Eos % (Auto) 0.0, Baso % (Auto) 0.1, Absolute Neuts (auto) 9.6 H, Total Counted Not Reportable 12/14/18 16:50: Sodium 137, Potassium 4.2, Chloride 102, Carbon Dioxide 26.0, Anion Gap 9, BUN 20 H, Creatinine 0.97, Est GFR (MDRD) Af Amer 96, Est GFR (MDRD) Non-Af 79, BUN/Creatinine Ratio 20.5 H, Glucose 270 H, Calcium 9.3, Troponin I < 0.015 12/14/18 17:55: Urine Color Yellow, Urine Clarity Clear, Urine pH 5.0, Ur Specific [place] 1.025, Urine Protein 30 H, Urine Glucose (UA) 250 H, Urine Ketones 5 H, Urine Occult Blood 10 H, Urine Nitrite Negative, Urine Bilirubin Negative, Urine Urobilinogen Normal, Ur Leukocyte Esterase Negative, Urine RBC 0 SEEN, Urine WBC 0-5 SEEN 12/14/18 21:06: Troponin I < 0.015 12/14/18 23:30: Troponin I < 0.015 12/15/18 05:32: WBC 5.8, RBC 4.98, Hgb 15.3, Hct 46.9, MCV 94.2 H, MCH 30.7, MCHC 32.6, RDW 12.5, RDW Differential 42.9, Plt Count 181, MPV 10.8, Immature Gran % (Auto) 0.200, Neut % (Auto) 78.2 H, Lymph % (Auto) 11.2 L, [place] % (Auto) 10.0, Eos % (Auto) 0.2, Baso % (Auto) 0.2, Absolute Neuts (auto) 4.5, Total Counted Not Reportable 12/15/18 05:32: Sodium 138, Potassium 3.8, Chloride 104, Carbon Dioxide 25.0, Anion Gap 9, BUN 17, Creatinine 0.88, Est GFR (MDRD) Af Amer 108, Est GFR (MDRD) Non-Af 89, BUN/Creatinine Ratio 19.3, Glucose 263 H, Calcium 8.6 Rhythm:Sinus rhythm; PVCs EKG:As noted above ECHO:04/27/2018: Left ventricular wall motion and systolic function reported normal with an estimated LVEF of 65%; decrease diastolic compliance Stress Test:05/04/2018: Stress echocardiogram: Reported as negative for inducible myocardial ischemia PCI:As noted above Chest x-ray: Preliminary evaluation: No acute cardiopulmonary disease process: Please see official report Assessment/Plan 1. Chest pain/shortness of breath/15 The Patient has combination of symptoms. There is concern that a component of his symptoms could be an angina pectoris equivalent and related to his underlying CAD process. At the same time the patient has been found to be febrile and is undergoing evaluation care for an underlying infectious disease process as well. However from a cardiac standpoint, based upon his previous stable cardiovascular course, good activity level, and now with relatively abrupt change in his status with the development of symptoms and was some concern that some aspect of them are similar to his previous cardiovascular event, it would be reasonable to continue further cardiac evaluation care. As the patient has undergone noninvasive evaluation less than a year ago it would not be reasonable to consider a further definitive evaluation of her coronary anatomy. This will include a diagnostic cardiac catheterization study. The procedure and risks have been discussed with the patient. He is in agreement with this. In the interim he will continue medical management. This would include his antiplatelet therapy. He can continue anticoagulant therapy is deemed appropriate. Nitrates can be used as needed. There is concern about potential beta nenita/lactose intolerance related issues. He has also had issues with lipid lowering therapy with respect of statins. 2. CAD status post MA-wrote status post RCA PCI -2007 At the present time the patient will continue to be followed. He will be monitored with respect to change in his clinical status. He will continue his evaluation and care is deemed appropriate. 3. Hyperlipidemia The patient has a history of hyperlipidemia. He has not been on lipid lowering agent- statins - based upon concerns of side effects. He has been on lipid lowering therapy with Zetia. He will continue medical therapy as tolerated. 4. Hypertension He will continue as blood pressures monitor. His medications can be adjusted as needed. 6. Diabetes mellitus. She will continue to the care of internal medicine. 7. Fever He has had a fever. The etiology is unclear. There are concerns that may be a viral mediated event. However he continues evaluation care per internal medicine. Comment: The patient's case has been discussed and reviewed with patient and previously with Dr. Avelar. This note was generated using a voice recognition system and there may be incorrect words, spelling or punctuation that were not noted when reviewing the office note prior to saving.
--- NOTE | 2018-12-15 13:47 | CON.PCM_ITS ---
Problem List (1) Chest pain Status: Acute (2) CAD S/P percutaneous coronary angioplasty Status: Chronic (3) Hyperlipidemia Status: Chronic (4) HTN (hypertension) Status: Chronic (5) Diabetes mellitus Status: Chronic (6) Fever Status: Acute Reason for Consult Date of Consultation: 12/15/18 History of Present Illness: The patient is a 77 year old White male with a previous history of underlying hyperlipidemia, hypertension, diabetes mellitus, status post acute myocardial injury/infarction status post diagnostic cardiac catheterization/PCI -2007-without PCI to the RCA with a 3.0 times 23 mm Promus drug eluding stent who presents for evaluation of chest discomfort and subsequent findings of fever. He states he had been doing well, off his usual daily activities without difficulty come up until recently. Recently he has noted chest discomfort as well as being more short of breath and dyspneic and being more tired and fatigued. He notes with his original event his concerns were shortness of breath/dyspnea and fatigue. He presented for further evaluation and care. He has denied ongoing orthopnea or PND or worsening peripheral pitting edema. There has been no near syncope or syncope. He was found to be febrile with a fever of 101. The etiology has been uncertain at this time. He states since his hospitalization he was noted episodes of diaphoresis. She has been undergoing evaluation with cardiac enzymes which have been negati ve. His ECG demonstrated sinus rhythm with PVCs with possible left atrial enlargement. On cardiac rhythm and I also see has had episodes of ventricular ectopy. [] Past Medical History Allergies/Adverse Reactions: Allergies amoxicillin Allergy (Verified 12/14/18 16:54) Unknown lactose Adverse Reaction (Intermediate, Verified 12/14/18 16:54) GI issues Zabrpag-Uso-Ikk Reductase Inhibitor Adverse Reaction (Verified 12/14/18 16:54) Myalgia Home Medications: Ambulatory Orders Medication Instructions Recorded Metformin HCl [Glucophage] 500 mg PO TIDCM 10/06/15 aspirin 325 mg tablet 325 mg PO DAILY 11/03/17 tramadol 50 mg tablet 50 mg PO DAILY 11/03/17 Cholecalciferol (Vitamin D3) 2,000 unit PO DAILY 12/14/18 [Vitamin D3] Ezetimibe 10 mg PO DAILY 12/14/18 Naproxen Sodium [Aleve] 220 mg PO PRN PRN 12/14/18 Past Medical History (Chronic Problems): Chronic Problems (Last Reviewed 11/26/18 @ 15:16 by Teodora Merlos) CAD S/P percutaneous coronary angioplasty (Chronic) H/O right coronary artery stent placement (Chronic 06/09/08) MARK to RCA w 3.0 x 23 mm Promus 06/09/2008 @ [facility] in [place], [place] Old myocardial infarction (Chronic) 2007 Sinus bradycardia (Chronic) Ventricular tachycardia (Chronic) Hyperlipidemia (Chronic) Atherosclerotic heart disease of [place] coronary artery without angina pectoris (Chronic) MARK to RCA w 3.0 x 23 mm Promus 06/09/2008 BPH (benign prostatic hyperplasia) (Chronic) HTN (hypertension) (Chronic) Diabetes mellitus (Chronic) - *Family History Maternal Family History: Family History (Last Reviewed 11/26/18 @ 15:16 by Teodora Merlos) Father CAD (coronary artery disease) Mother CAD (coronary artery disease) Hyperlipidemia Brother CAD (coronary artery disease) Diabetes Sister Hypertension Smoking Status: Former smoker Tobacco Use: Cigarettes Alcohol: None Drugs: None Review of Systems - Review of Systems General: Reports: Fever, Fatigue. Denies: Night Sweats Cardiovascular: Reports: Chest Discomfort, Shortness of Breath. Denies: Orthopnea, PND, Peripheral Edema, Palpitations, Lightheadedness, Dizziness, Near Syncope, Syncope Respiratory: Denies: Cough, Sputum Production, Hemoptysis Gastrointestinal: Denies: Hematemesis, Hematochezia, Melena Genitourinary: Denies: Dysuria, Hematuria Skin: Denies: Rash Subjectve: This is a 77-year-old white male who appears to be resting reasonably comfortably at the moment in no acute distress. Objective: Vital Signs Temp Pulse Resp BP Pulse Ox 98.3 F 69 18 114/55 L 96 12/15/18 08:38 12/15/18 10:55 12/15/18 08:38 12/15/18 08:38 12/15/18 08:38 Oxygen Delivery Method Room Air Weight: 179 lb 7.3 oz Body Mass Index (BMI) 27.3 Finger Stick Blood Glucose 146 Intake and Output for Last 24 Hours 12/13/18 12/14/18 12/15/18 23:59 23:59 23:59 Intake Total 460 / 460 Balance 460 / 460 General: Awake, Alert, Oriented x 3, Cooperative, No Acute Distress HEENT: Atraumatic, Normocephalic, PERRL, EOMI, Sclera Non Icteric Oral: Moist Mucosa Neck: Supple, Good ROM, No JVD Lungs: Clear to auscultation Cardiovascular: Regular Rhythm, Premature Ectopic Beats, Normal S1, Normal S2 Vascular: No Carotid Bruits Abdomen: Bowel Sounds Present, Soft, Non Tender Extremities: No edema Neurological: No Focal Motor or Sensory Deficit Psych/Mental Status: Appropriate 12/14/18 16:50: WBC 10.7, RBC 5.04, Hgb 16.0, Hct 46.7, MCV 92.7, MCH 31.7, MCHC 34.3, RDW 12.5, RDW Differential 41.5, Plt Count 214, MPV 10.8, Immature Gran % (Auto) 0.200, Neut % (Auto) 90.0 H, Lymph % (Auto) 4.9 L, [place] % (Auto) 4.8, Eos % (Auto) 0.0, Baso % (Auto) 0.1, Absolute Neuts (auto) 9.6 H, Total Counted Not Reportable 12/14/18 16:50: Sodium 137, Potassium 4.2, Chloride 102, Carbon Dioxide 26.0, Anion Gap 9, BUN 20 H, Creatinine 0.97, Est GFR (MDRD) Af Amer 96, Est GFR (MDRD) Non-Af 79, BUN/Creatinine Ratio 20.5 H, Glucose 270 H, Calcium 9.3, Troponin I < 0.015 12/14/18 17:55: Urine Color Yellow, Urine Clarity Clear, Urine pH 5.0, Ur Specific [place] 1.025, Urine Protein 30 H, Urine Glucose (UA) 250 H, Urine Ketones 5 H, Urine Occult Blood 10 H, Urine Nitrite Negative, Urine Bilirubin Negative, Urine Urobilinogen Normal, Ur Leukocyte Esterase Negative, Urine RBC 0 SEEN, Urine WBC 0-5 SEEN 12/14/18 21:06: Troponin I < 0.015 12/14/18 23:30: Troponin I < 0.015 12/15/18 05:32: WBC 5.8, RBC 4.98, Hgb 15.3, Hct 46.9, MCV 94.2 H, MCH 30.7, MCHC 32.6, RDW 12.5, RDW Differential 42.9, Plt Count 181, MPV 10.8, Immature Gran % (Auto) 0.200, Neut % (Auto) 78.2 H, Lymph % (Auto) 11.2 L, [place] % (Auto) 10.0, Eos % (Auto) 0.2, Baso % (Auto) 0.2, Absolute Neuts (auto) 4.5, Total Counted Not Reportable 12/15/18 05:32: Sodium 138, Potassium 3.8, Chloride 104, Carbon Dioxide 25.0, Anion Gap 9, BUN 17, Creatinine 0.88, Est GFR (MDRD) Af Amer 108, Est GFR (MDRD) Non-Af 89, BUN/Creatinine Ratio 19.3, Glucose 263 H, Calcium 8.6 Rhythm:Sinus rhythm; PVCs EKG:As noted above ECHO:04/27/2018: Left ventricular wall motion and systolic function reported normal with an estimated LVEF of 65%; decrease diastolic compliance Stress Test:05/04/2018: Stress echocardiogram: Reported as negative for inducible myocardial ischemia PCI:As noted above Chest x-ray: Preliminary evaluation: No acute cardiopulmonary disease process: Please see official report Assessment/Plan 1. Chest pain/shortness of breath/15 The Patient has combination of symptoms. There is concern that a component of his symptoms could be an angina pectoris equivalent and related to his un derlying CAD process. At the same time the patient has been found to be febrile and is undergoing evaluation care for an underlying infectious disease process as well. However from a cardiac standpoint, based upon his previous stable cardiovascular course, good activity level, and now with relatively abrupt change in his status with the development of symptoms and was some concern that some aspect of them are similar to his previous cardiovascular event, it would be reasonable to continue further cardiac evaluation care. As the patient has undergone noninvasive evaluation less than a year ago it would not be reasonable to consider a further definitive evaluation of her coronary anatomy. This will include a diagnostic cardiac catheterization study. The procedure and risks have been discussed with the patient. He is in agreement with this. In the interim he will continue medical management. This would include his antiplatelet therapy. He can continue anticoagulant therapy is deemed cristin ropriate. Nitrates can be used as needed. There is concern about potential beta nenita/lactose intolerance related issues. He has also had issues with lipid lowering therapy with respect of statins. 2. CAD status post PR-wrote status post RCA PCI -2007 At the present time the patient will continue to be followed. He will be monitored with respect to change in his clinical status. He will continue his evaluation and care is deemed appropriate. 3. Hyperlipidemia The patient has a history of hyperlipidemia. He has not been on lipid lowering agent- statins - based upon concerns of side effects. He has been on lipid lowering therapy with Zetia. He will continue medical therapy as tolerated. 4. Hypertension He will continue as blood pressures monitor. His medications can be adjusted as needed. 6. Diabetes mellitus. She will continue to the care of internal medicine. 7. Fever He has had a fever. The etiology is unclear. There are concerns that may be a viral mediated event. However he continues evaluation care per internal medicine. Comment: The patient's case has been discussed and reviewed with patient and previously with Dr. Avelar. This note was generated using a voice recognition system and there may be incorrect words, spelling or punctuation that were not noted when reviewing the office note prior to saving.
[2018-12-15 15:11] LABS: Bedside Glucose 266 mg/dL (70-110)
[2018-12-15] MEDS: Clopidogrel Bisulfate 300 MG Tablet PO (15:12)
[2018-12-15 15:39] LABS: Hemoglobin A1c 8.9 % (4.2-6.3)
--- NOTE | 2018-12-15 16:24 | CM.UR ---
Heart cath planned for Monday. Patient has traditional medicare with [place] supplement. If transfer needed, ok to send to hospital of choice that participates in [facility]. Berny Troncoso RN, [facility].
[2018-12-15 16:31] LABS: Bedside Glucose 275 mg/dL (70-110)
--- NOTE | 2018-12-15 16:55 | PCM.PN.HOSP ---
Patient Problems: Active and Suspected Problems (Last Reviewed 11/26/18 @ 15:16 by Teodora Merlos) Chest pain (Acute) Fever (Acute) Subjective: Patient was seen and examined. Complains of anterior chest wall discomfort, which is reproducible. Having sweats, intermittent. She denied any dizziness or palpitations. He is going for cardiac cath on Monday. Complains also of upper respiratory symptoms. Vitals/I&O's: Vital Signs Temp Pulse Resp BP Pulse Ox 98.1 F 85 18 126/60 H 97 12/15/18 14:09 12/15/18 15:00 12/15/18 14:09 12/15/18 14:09 12/15/18 14:09 Oxygen Delivery Method Room Air Weight: 81.4 kg Body Mass Index (BMI) 27.3 Finger Stick Blood Glucose 146 Intake and Output for Last 24 Hours 12/13/18 12/14/18 12/15/18 23:59 23:59 23:59 Intake Total 460 / 460 Balance 460 / 460 General: Alert, Oriented x3, Cooperative, No apparent distress HEENT: Atraumatic, PERRLA, EOMI, Normocephalic Oral: Moist Mucosa Neck: Supple Lungs: Clear to auscultation, Normal air movement, - - Reproducible anterior chest wall discomfort Cardiovascular: Regular rate, Regular Rhythm, Normal S1, Normal S2, No murmurs Abdomen: Bowel Sounds Present, Soft, Non Tender, Non-Distended Extremities: No edema Skin: No rashes, No breakdown Musculoskeletal: No Tenderness to Palpation of Joints or Extremities Lymphatic: No Cervical, Supraclavicular, or Inguinal Adenopathy Neurological: Cranial nerves II-XII grossly intact, Neuro grossly intact Psych/Mental Status: Normal Affect, Appropriate Microbiology Past 72 Hours 12/14/18 20:40 Mucosa - Nasopharyngeal Respiratory Panel (PCR) - Final 12/14/18 20:40 Mucosa - Nasopharyngeal Influenza Types A,B Direct FA (AIME) - Final Laboratory Results 12/14/18 16:50: WBC 10.7, RBC 5.04, Hgb 16.0, Hct 46.7, MCV 92.7, MCH 31.7, MCHC 34.3, RDW 12.5, RDW Differential 41.5, Plt Count 214, MPV 10.8, Immature Gran % (Auto) 0.200, Neut % (Auto) 90.0 H, Lymph % (Auto) 4.9 L, [place] % (Auto) 4.8, Eos % (Auto) 0.0, Baso % (Auto) 0.1, Absolute Neuts (auto) 9.6 H, Absolute Lymphs (auto) 0.52 L, Total Counted Not Reportable, Differential Comment , Platelet Estimate ADEQUATE, RBC Morphology NORM C+C 12/14/18 16:50: Sodium 137, Potassium 4.2, Chloride 102, Carbon Dioxide 26.0, Anion Gap 9, BUN 20 H, Creatinine 0.97, Estim Creat Clear Calc 62.68, Est GFR (MDRD) Af Amer 96, Est GFR (MDRD) Non-Af 79, BUN/Creatinine Ratio 20.5 H, Glucose 270 H, Calcium 9.3, Troponin I < 0.015 12/14/18 17:55: Urine Color Yellow, Urine Clarity Clear, Urine pH 5.0, Ur Specific [place] 1.025, Urine Protein 30 H, Urine Glucose (UA) 250 H, Urine Ketones 5 H, Urine Occult Blood 10 H, Urine Nitrite Negative, Urine Bilirubin Negative, Urine Urobilinogen Normal, Ur Leukocyte Esterase Negative, Urine RBC 0 SEEN, Urine WBC 0-5 SEEN, Ur Squamous Epith Cells 0 SEEN, Urine Bacteria 0 SEEN, Urine Mucus RARE 12/14/18 21:06: Troponin I < 0.015 12/14/18 22:48: POC Glucose 235 H 12/14/18 23:30: Troponin I < 0.015 12/15/18 05:32: WBC 5.8, RBC 4.98, Hgb 15.3, Hct 46.9, MCV 94.2 H, MCH 30.7, MCHC 32.6, RDW 12.5, RDW Differential 42.9, Plt Count 181, MPV 10.8, Immature Gran % (Auto) 0.200, Neut % (Auto) 78.2 H, Lymph % (Auto) 11.2 L, [place] % (Auto) 10.0, Eos % (Auto) 0.2, Baso % (Auto) 0.2, Absolute Neuts (auto) 4.5, Absolute Lymphs (auto) 0.65 L, Total Counted Not Reportable 12/15/18 05:32: Sodium 138, Potassium 3.8, Chloride 104, Carbon Dioxide 25.0, Anion Gap 9, BUN 17, Creatinine 0.88, Estim Creat Clear Calc 69.09, Est GFR (MDRD) Af Amer 108, Est GFR (MDRD) Non-Af 89, BUN/Creatinine Ratio 19.3, Glucose 263 H, Calcium 8.6 12/15/18 05:32: Hemoglobin A1c 8.9 H 12/15/18 06:56: POC Glucose 285 H 12/15/18 11:08: POC Glucose 388 H 12/15/18 15:04: POC Glucose 266 H 12/15/18 16:19: POC Glucose 275 H Current Medications Acetaminophen (Tylenol) 1,000 mg PO TID [facility] Aspirin (Aspirin) 325 mg PO DAILYCM [facility] Last Admin: 12/15/18 08:11 Dose: 325 mg Cholecalciferol (Vitamin D) 2,000 unit PO DAILY [facility] Dextrose (D50w Syringe) 0 gm IV X1 PRN; Protocol PRN Reason: Hypoglycemia Ezetimibe (Zetia) 10 mg PO DAILY [facility] Last Admin: 12/15/18 08:11 Dose: 10 mg Enoxaparin Sodium (Lovenox) 40 mg SC DAILY@1000 [facility] Last Admin: 12/15/18 10:32 Dose: 40 mg Glucagon () 1 mg IM .X1 PRN PRN Reason: Hypoglycemia Insulin Human Lispro (Humalog Kwikpen (Bkc)) 0 unit SQ ACHS [facility]; Protocol Last Admin: 12/15/18 16:22 Dose: 6 units Magnesium Hydroxide (Milk Of Magnesia) 30 ml PO DAILY PRN PRN Reason: Constipation Sodium Chloride () 5 - 15 ml IV UD PRN PRN Reason: SALINE FLUSH Tramadol HCl (Ultram) 50 mg PO Q4H PRN PRN PRN Reason: PAIN Medical Necessity - Tobacco Use Smoking Status: Former smoker Tobacco Use: Cigarettes Assessment/Plan All Active Problems (Last Reviewed 11/26/18 @ 15:16 by Teodora Merlos) Chest pain (Acute) Fever (Acute) [id number] male with past medical history of CAD status post stent, hypertension, type II DM comes in with complaints of chest pain and shortness of breath. 1. Chest pain, concerning for possible angina, versus musculoskeletal pain versus pericarditis, no acute ST-T changes on EKG, troponins are negative. Cardiac cath planned on Monday. Continue on aspirin, Zetia, will add scheduled tylenol for symptom relief, will continue to monitor. 2. Fever likely secondary to viral etiology, chest x-ray is negative for pneumonia, UA negative for UTI, although he had a recent urological procedure Plan: Continue to monitor, urine cultures, blood cultures if temperatures more than 101.F 3. Type II DM, blood sugars are uncontrolled, home metformin on hold, will continue with Accu-Cheks and an increased dose of insulin sliding scale 4. DVT Prophylaxis with Lovenox subcu Code Visit Inpatient E&M: 76737 Subs Hosp L2
--- NOTE | 2018-12-15 17:04 | PN_ITS ---
Patient Problems: Active and Suspected Problems (Last Reviewed 11/26/18 @ 15:16 by Teodora Merlos) Chest pain (Acute) Fever (Acute) Subjective: Patient was seen and examined. Complains of anterior chest wall discomfort, which is reproducible. Having sweats, intermittent. She denied any dizziness or palpitations. He is going for cardiac cath on Monday. Complains also of upper respiratory symptoms. Vitals/I&O's: Vital Signs Temp Pulse Resp BP Pulse Ox 98.1 F 85 18 126/60 H 97 12/15/18 14:09 12/15/18 15:00 12/15/18 14:09 12/15/18 14:09 12/15/18 14:09 Oxygen Delivery Method Room Air Weight: 81.4 kg Body Mass Index (BMI) 27.3 Finger Stick Blood Glucose 146 Intake and Output for Last 24 Hours 12/13/18 12/14/18 12/15/18 23:59 23:59 23:59 Intake Total 460 / 460 Balance 460 / 460 General: Alert, Oriented x3, Cooperative, No apparent distress HEENT: Atraumatic, PERRLA, EOMI, Normocephalic Oral: Moist Mucosa Neck: Supple Lungs: Clear to auscultation, Normal air movement, - - Reproducible anterior chest wall discomfort Cardiovascular: Regular rate, Regular Rhythm, Normal S1, Normal S2, No murmurs Abdomen: Bowel Sounds Present, Soft, Non Tender, Non-Distended Extremities: No edema Skin: No rashes, No breakdown Musculoskeletal: No Tenderness to Palpation of Joints or Extremities Lymphatic: No Cervical, Supraclavicular, or Inguinal Adenopathy Neurological: Cranial nerves II-XII grossly intact, Neuro grossly intact Psych/Mental Status: Normal Affect, Appropriate Microbiology Past 72 Hours 12/14/18 20:40 Mucosa - Nasopharyngeal Respiratory Panel (PCR) - Final 12/14/18 20:40 Mucosa - Nasopharyngeal Influenza Types A,B Direct FA (AIME) - Final Laboratory Results 12/14/18 16:50: WBC 10.7, RBC 5.04, Hgb 16.0, Hct 46.7, MCV 92.7, MCH 31.7, MCHC 34.3, RDW 12.5, RDW Differential 41.5, Plt Count 214, MPV 10.8, Immature Gran % (Auto) 0.200, Neut % (Auto) 90.0 H, Lymph % (Auto) 4.9 L, [place] % (Auto) 4.8, Eos % (Auto) 0.0, Baso % (Auto) 0.1, Absolute Neuts (auto) 9.6 H, Absolute Lymphs (auto) 0.52 L, Total Counted Not Reportable, Differential Comment , Platelet Estimate ADEQUATE, RBC Morphology NORM C+C 12/14/18 16:50: Sodium 137, Potassium 4.2, Chloride 102, Carbon Dioxide 26.0, Anion Gap 9, BUN 20 H, Creatinine 0.97, Estim Creat Clear Calc 62.68, Est GFR (MDRD) Af Amer 96, Est GFR (MDRD) Non-Af 79, BUN/Creatinine Ratio 20.5 H, Glucose 270 H, Calcium 9.3, Troponin I < 0.015 12/14/18 17:55: Urine Color Yellow, Urine Clarity Clear, Urine pH 5.0, Ur Specific [place] 1.025, Urine Protein 30 H, Urine Glucose (UA) 250 H, Urine Ketones 5 H, Urine Occult Blood 10 H, Urine Nitrite Negative, Urine Bilirubin Negative, Urine Urobilinogen Normal, Ur Leukocyte Esterase Negative, Urine RBC 0 SEEN, Urine WBC 0-5 SEEN, Ur Squamous Epith Cells 0 SEEN, Urine Bacteria 0 SEEN, Urine Mucus RARE 12/14/18 21:06: Troponin I < 0.015 12/14/18 22:48: POC Glucose 235 H 12/14/18 23:30: Troponin I < 0.015 12/15/18 05:32: WBC 5.8, RBC 4.98, Hgb 15.3, Hct 46.9, MCV 94.2 H, MCH 30.7, MCHC 32.6, RDW 12.5, RDW Differential 42.9, Plt Count 181, MPV 10.8, Immature Gran % (Auto) 0.200, Neut % (Auto) 78.2 H, Lymph % (Auto) 11.2 L, [place] % (Auto) 10.0, Eos % (Auto) 0.2, Baso % (Auto) 0.2, Absolute Neuts (auto) 4.5, Absolute Lymphs (auto) 0.65 L, Total Counted Not Reportable 12/15/18 05:32: Sodium 138, Potassium 3.8, Chloride 104, Carbon Dioxide 25.0, Anion Gap 9, BUN 17, Creatinine 0.88, Estim Creat Clear Calc 69.09, Est GFR (MDRD) Af Amer 108, Est GFR (MDRD) Non-Af 89, BUN/Creatinine Ratio 19.3, Glucose 263 H, Calcium 8.6 12/15/18 05:32: Hemoglobin A1c 8.9 H 12/15/18 06:56: POC Glucose 285 H 12/15/18 11:08: POC Glucose 388 H 12/15/18 15:04: POC Glucose 266 H 12/15/18 16:19: POC Glucose 275 H Current Medications Acetaminophen (Tylenol) 1,000 mg PO TID [facility] Aspirin (Aspirin) 325 mg PO DAILYCM [facility] Last Admin: 12/15/18 08:11 Dose: 325 mg Cholecalciferol (Vitamin D) 2,000 unit PO DAILY [facility] Dextrose (D50w Syringe) 0 gm IV X1 PRN; Protocol PRN Reason: Hypoglycemia Ezetimibe (Zetia) 10 mg PO DAILY [facility] Last Admin: 12/15/18 08:11 Dose: 10 mg Enoxaparin Sodium (Lovenox) 40 mg SC DAILY@1000 [facility] Last Admin: 12/15/18 10:32 Dose: 40 mg Glucagon () 1 mg IM .X1 PRN PRN Reason: Hypoglycemia Insulin Human Lispro (Humalog Kwikpen (Bkc)) 0 unit SQ ACHS [facility]; Protocol Last Admin: 12/15/18 16:22 Dose: 6 units Magnesium Hydroxide (Milk Of Magnesia) 30 ml PO DAILY PRN PRN Reason: Constipation Sodium Chloride () 5 - 15 ml IV UD PRN PRN Reason: SALINE FLUSH Tramadol HCl (Ultram) 50 mg PO Q4H PRN PRN PRN Reason: PAIN Medical Necessity - Tobacco Use Smoking Status: Former smoker Tobacco Use: Cigarettes Assessment/Plan All Active Problems (Last Reviewed 11/26/18 @ 15:16 by Teodora Merlos) Chest pain (Acute) Fever (Acute) [id number] male with past medical history of CAD status post stent, hypertension, type II DM comes in with complaints of chest pain and shortness of breath. 1. Chest pain, concerning for possible angina, versus musculoskeletal pain versus pericarditis, no acute ST-T changes on EKG, troponins are negative. Cardiac cath planned on Monday. Continue on aspirin, Zetia, will add scheduled tylenol for symptom relief, will continue to monitor. 2. Fever likely secondary to viral etiology, chest x-ray is negative for pneumonia, UA negative for UTI, although he had a recent urological procedure Plan: Continue to monitor, urine cultures, blood cultures if temperatures more than 101.F 3. Type II DM, blood sugars are uncontrolled, home metformin on hold, will continue with Accu-Cheks and an increased dose of insulin sliding scale 4. DVT Prophylaxis with Lovenox subcu Code Visit Inpatient E&M: [id number] Subs Hosp L2
[2018-12-15] MEDS: Acetaminophen 500 MG Tablet 1000 MG PO (22:49)
[2018-12-16] VITALS (13 sets, daily range): BP systolic 113–129; BP diastolic 45–62; PULSE 34–81; RESP 10–19; TEMP 36.4–36.8; O2SAT 96–99
[2018-12-16 01:26] LABS: Bedside Glucose 293 mg/dL (70-110)
[2018-12-16] MEDS: traMADol 50 MG Tablet PO ×2 (03:00→21:45)
[2018-12-16] MEDS: Acetaminophen 500 MG Tablet 1000 MG PO ×2 (05:39→14:08)
[2018-12-16 05:43] LABS: Anion Gap 9 (5-15); BUN 21 mg/dL (7-18); BUN/Creat Ratio 27.7 RATIO (10-20); Calcium,Total 8.4 mg/dL (8.5-10.1); Chloride 106 mmol/L (98-107); Cholesterol 138 mg/dL (200); Creatinine, Serum 0.76 mg/dL (0.70-1.30); EST Glomerular Filtration Rate 106 mL/min (>60); Est Glom Filt Rate - Afr Amer 129 mL/min (>60); Glucose 240 mg/dL (74-106); High Density Lipoprotein 47 mg/dL; Potassium 3.8 mmol/L (3.5-5.1); Sodium Level 139 mmol/L (136-145); Triglycerides 219 mg/dL; Very Low Density Lipoprotein 44 mg/dL (5-40)
--- NOTE | 2018-12-16 05:55 | EKG12_ITS ---
Test Reason : BRADYCARDIA Blood Pressure : / mmHG Vent. Rate : 061 BPM Atrial Rate : 061 BPM P-R Int : 200 ms QRS Dur : 100 ms QT Int : 400 ms P-R-T Axes : 061 009 058 degrees QTc Int : 402 ms Sinus rhythm with marked sinus arrhythmia with frequent Premature ventricular complexes Possible Left atrial enlargement Left ventricular hypertrophy Abnormal ECG Confirmed by YAMILEX MONSIVAIS, ESTEPHANIE ([id number]), metropolitan editor SONYA JOHNSON ([id number]) on 12/19/2018 10:53:06 AM Referred By: DR MCCORMACK Confirmed By:ESTEPHANIE KAMINSKI MD
[2018-12-16 06:56] LABS: Bedside Glucose 247 mg/dL (70-110)
[2018-12-16] MEDS: Insulin Lispro 100 UNIT/ML INSULN.PEN SQ ×4 (08:19→21:44)
[2018-12-16] MEDS: Aspirin 325 MG Tablet PO (08:20)
[2018-12-16] MEDS: Enoxaparin 40 MG/0.4 ML Syringe SC (08:20)
[2018-12-16] MEDS: Ezetimibe 10 MG Tablet PO (08:20)
--- NOTE | 2018-12-16 08:56 | PCM.PN.HOSP ---
Patient Problems: Active and Suspected Problems (Last Reviewed 11/26/18 @ 15:16 by Teodora Merlos) Chest pain (Acute) Fever (Acute) Subjective: Patient was seen and examined. He feels improved. No other acute events. No fevers overnight Going for cardiac cath in am Rest of ROS is negative. Vitals/I&O's: Vital Signs Temp Pulse Resp BP Pulse Ox 97.7 F L 73 16 128/62 H 98 12/16/18 08:14 12/16/18 08:14 12/16/18 08:14 12/16/18 08:14 12/16/18 08:14 Oxygen Delivery Method Room Air Weight: 81.4 kg Body Mass Index (BMI) 27.3 Finger Stick Blood Glucose 146 Intake and Output for Last 24 Hours 12/14/18 12/15/18 12/16/18 23:59 23:59 23:59 Intake Total 920 / 920 480 / 480 Balance 920 / 920 480 / 480 General: Alert, Oriented x3, Cooperative, No apparent distress HEENT: Atraumatic, PERRLA, EOMI, Normocephalic Oral: Moist Mucosa Neck: Supple Lungs: Clear to auscultation, Normal air movement Cardiovascular: Regular rate, Regular Rhythm, Normal S1, Normal S2, No murmurs Abdomen: Bowel Sounds Present, Soft, Non Tender, Non-Distended, No Hepato-splenomegaly Extremities: No edema Skin: No rashes, No breakdown Musculoskeletal: No Tenderness to Palpation of Joints or Extremities Lymphatic: No Cervical, Supraclavicular, or Inguinal Adenopathy Neurological: Cranial nerves II-XII grossly intact, Neuro grossly intact Psych/Mental Status: Normal Affect, Appropriate Microbiology Past 72 Hours 12/14/18 20:40 Mucosa - Nasopharyngeal Respiratory Panel (PCR) - Final 12/14/18 20:40 Mucosa - Nasopharyngeal Influenza Types A,B Direct FA (AIME) - Final Laboratory Results 12/15/18 05:32: Hemoglobin A1c 8.9 H 12/15/18 11:08: POC Glucose 388 H 12/15/18 15:04: POC Glucose 266 H 12/15/18 16:19: POC Glucose 275 H 12/15/18 22:41: POC Glucose 293 H 12/16/18 04:48: Sodium 139, Potassium 3.8, Chloride 106, Carbon Dioxide 24.0, Anion Gap 9, BUN 21 H, Creatinine 0.76, Estim Creat Clear Calc 60.80, Est GFR (MDRD) Af Amer 129, Est GFR (MDRD) Non-Af 106, BUN/Creatinine Ratio 27.7 H, Glucose 240 H, Calcium 8.4 L, Magnesium 2.0, Triglycerides 219 H, Cholesterol 138, LDL Cholesterol 47, VLDL Cholesterol 44 H, HDL Cholesterol 47 12/16/18 04:48: Magnesium Cancelled 12/16/18 06:51: POC Glucose 247 H Current Medications Acetaminophen (Tylenol) 1,000 mg PO TID [facility] Last Admin: 12/16/18 05:39 Dose: 1,000 mg [facility]ir[facility]) [facility] Last Admin: 12/16/18 08:20 Dose: 325 mg Cholecalciferol (Vitamin D) 2,000 unit PO DAILY [facility] Last Admin: 12/16/18 08:20 Dose: 2,000 unit Dextrose (D50w Syringe) 0 gm IV X1 PRN; Protocol PRN Reason: Hypoglycemia Ezetimibe (Zetia) 10 mg PO DAILY [facility] Last Admin: 12/16/18 08:20 Dose: 10 mg Enoxaparin Sodium (Lovenox) 40 mg SC DAILY@1000 [facility] Last Admin: 12/16/18 08:20 Dose: 40 mg Glucagon () 1 mg IM .X1 PRN PRN Reason: Hypoglycemia Insulin Human Lispro (Humalog Kwikpen (Bkc)) 0 unit SQ ACHS [facility]; Protocol Last Admin: 12/16/18 08:19 Dose: 6 unit Magnesium Hydroxide (Milk Of Magnesia) 30 ml PO DAILY PRN PRN Reason: Constipation Sodium Chloride () 5 - 15 ml IV UD PRN PRN Reason: SALINE FLUSH Tramadol HCl (Ultram) 50 mg PO Q4H PRN PRN PRN Reason: PAIN Last Admin: 12/16/18 03:00 Dose: 50 mg Medical Necessity - Tobacco Use Smoking Status: Former smoker Tobacco Use: Cigarettes Assessment/Plan All Active Problems (Last Reviewed 11/26/18 @ 15:16 by Teodora Merlos) Chest pain (Acute) Fever (Acute) [id number] male with past medical history of CAD status post stent, hypertension, type II DM comes in with complaints of chest pain and shortness of breath. 1. Chest pain, concerning for possible angina, versus musculoskeletal pain versus pericarditis, EKG is unremarkable, troponins are negative Cardiology consulted, patient will be going for cardiac cath tomorrow. Continue on aspirin, plavix, Zetia, tylenol prn, will continue to monitor. 2. Fevers likely secondary to viral etiology, Influenza negative, respiratory panel negative, blood and urine cultures are pending chest x-ray is negative for pneumonia, UA negative for UTI, although he had a recent urological procedure Plan: Continue to monitor, follow-up on cultures 3. Type II DM, blood sugars are uncontrolled, HbA1c is 8.9 home metformin on hold, will continue with Accu-Cheks and an increased dose of insulin sliding scale 4. DVT Prophylaxis with Lovenox subcu Code Visit Inpatient E&M: [id number] [facility] L2
[2018-12-16 11:51] LABS: Bedside Glucose 313 mg/dL (70-110)
--- NOTE | 2018-12-16 13:38 | PCM.PN.CARD ---
Subjectve: The patient states he does feel better compared to yesterday. He states he still has intermittent diaphoretic spells but not as prominent. He denies any ongoing chest discomfort or difficulty breathing at this time. Objective: Vital Signs Temp Pulse Resp BP Pulse Ox 97.7 F L 35 L 16 128/62 H 98 12/16/18 08:14 12/16/18 10:57 12/16/18 08:14 12/16/18 08:14 12/16/18 08:14 Oxygen Delivery Method Room Air Weight: 179 lb 7.3 oz Body Mass Index (BMI) 27.3 Finger Stick Blood Glucose 146 Intake and Output for Last 24 Hours 12/14/18 12/15/18 12/16/18 23:59 23:59 23:59 Intake Total 920 / 920 700 / 700 Balance 920 / 920 700 / 700 General: Awake, Alert, Oriented x 3, Cooperative, No Acute Distress HEENT: Atraumatic, Normocephalic, PERRL, EOMI, Sclera Non Icteric Oral: Moist Mucosa Neck: Supple, Good ROM, No JVD Lungs: Clear to auscultation Cardiovascular: Regular Rhythm, Premature Ectopic Beats, Normal S1, Normal S2 Abdomen: Bowel Sounds Present, Soft, Non Tender Extremities: No edema Neurological: No Focal Motor or Sensory Deficit Psych/Mental Status: Appropriate 12/15/18 05:32: Hemoglobin A1c 8.9 H 12/16/18 04:48: Sodium 139, Potassium 3.8, Chloride 106, Carbon Dioxide 24.0, Anion Gap 9, BUN 21 H, Creatinine 0.76, Est GFR (MDRD) Af Amer 129, Est GFR (MDRD) Non-Af 106, BUN/Creatinine Ratio 27.7 H, Glucose 240 H, Calcium 8.4 L, Magnesium 2.0, Triglycerides 219 H, Cholesterol 138, LDL Cholesterol 47, VLDL Cholesterol 44 H, HDL Cholesterol 47 12/16/18 04:48: Magnesium Cancelled Rhythm:Sinus rhythm; PVCs Medical Necessity - Tobacco Use Smoking Status: Former smoker Tobacco Use: Cigarettes Assessment/Plan 1. Chest pain/shortness of breath/15 The patient has combination of symptoms. There is concern that a component of his symptoms could be an angina pectoris equivalent and related to his underlying CAD process. At the same time the patient has been found to be febrile and is undergoing evaluation care for an underlying infectious disease process as well. However from a cardiac standpoint, based upon his previous stable cardiovascular course, good activity level, and now with relatively abrupt change in his status with the development of symptoms and was some concern that some aspect of them are similar to his previous cardiovascular event, it would be reasonable to continue further cardiac evaluation care. As the patient has undergone noninvasive evaluation less than a year ago it would not be reasonable to consider a further definitive evaluation of her coronary anatomy. This will include a diagnostic cardiac catheterization study. The procedure and risks have been discussed with the patient. He is in agreement with this. In the interim he will continue medical management. This would include his antiplatelet therapy. He can continue anticoagulant therapy is deemed appropriate. Nitrates can be used as needed. There is concern about potential beta nenita/lactose intolerance related issues. He has also had issues with lipid lowering therapy with respect of statins. 2. CAD status post ND-wrote status post RCA PCI -2007 At the present time the patient will continue to be followed. He will be monitored with respect to change in his clinical status. He will continue his evaluation and care is deemed appropriate. 3. Hyperlipidemia The patient has a history of hyperlipidemia. He has not been on lipid lowering agent- statins - based upon concerns of side effects. He has been on lipid lowering therapy with Zetia. He will continue medical therapy as tolerated. 4. Hypertension He will continue as blood pressures monitor. His medications can be adjusted as needed. 6. Diabetes mellitus. She will continue to the care of internal medicine. 7. Fever He has had a fever. His temperature has been decreasing. The etiology is unclear. There are concerns that may be a viral mediated event. However he continues evaluation care per internal medicine. Comment: The patient's case has been discussed and reviewed with patient. This note was generated using a voice recognition system and there may be incorrect words, spelling or punctuation that were not noted when reviewing the office note prior to saving.
[2018-12-16] MEDS: Clopidogrel Bisulfate 75 MG Tablet PO (14:08)
[2018-12-16 16:30] LABS: Bedside Glucose 247 mg/dL (70-110)
[2018-12-17] VITALS (15 sets, daily range): BP systolic 96–168; BP diastolic 49–77; PULSE 43–89; RESP 9–16; TEMP 36.4–36.5; O2SAT 95–99
[2018-12-17 00:40] LABS: Bedside Glucose 237 mg/dL (70-110)
[2018-12-17 05:19] LABS: Absolute Lymphocyte Count 1.39 X10^3/ul (0.83-4.51); Basophil# 0.02 X10^3/uL; Basophil% 0.4 % (0-1); Eosinophil# 0.15 X10^3/uL; Eosinophils% 2.9 % (0-5); Hematocrit 41.8 % (40-54); Hemoglobin 13.9 g/dl (13.0-16.5); Lymphocyte # 1.39 X10^3/ul (4.0); Lymphocyte % 26.6 % (19-41); Mean Corp Hgb Conc 33.3 g/gl (32-36); Mean Corpuscular Hgb 31.2 pg (27.0-32.0); Mean Corpuscular Volume 93.7 fL (80-94); Mean Platelet Vol. 10.6 fl (6.2-12.0); Monocyte% 13.4 % (0-10); Neutrophil # 2.95 X10^3/uL (2.7-7.7); Neutrophil % 56.5 % (47-70); Platelet Count 208 K/mm3 (150-450); RBC Distribution Width CV 12.3 % (11.6-14.6); RBC Distribution Width SD 41.5 fl (35.1-43.9); Red Blood Count 4.46 M/mm3 (4.6-6.2); White Blood Count 5.2 K/mm3 (4.4-11.0)
[2018-12-17 05:26] LABS: Prothrombin Time (Protime)PT. 12.9 SECONDS (11.7-14.9)
[2018-12-17 05:27] LABS: Partial Thromboplast Time 33.5 Seconds (24.1-36.2)
[2018-12-17 05:46] LABS: BUN 26 mg/dL (7-18); Creatinine, Serum 0.84 mg/dL (0.70-1.30); Glucose 187 mg/dL (74-106)
[2018-12-17 05:47] LABS: Anion Gap 8 (5-15); Calcium,Total 8.3 mg/dL (8.5-10.1); Chloride 106 mmol/L (98-107); EST Glomerular Filtration Rate 94 mL/min (>60); Est Glom Filt Rate - Afr Amer 114 mL/min (>60); Estimated Creatinine Clearance 72.38 ml/min; Potassium 4.3 mmol/L (3.5-5.1); Sodium Level 141 mmol/L (136-145)
[2018-12-17] MEDS: Clopidogrel Bisulfate 75 MG Tablet PO (06:08)
[2018-12-17] MEDS: Aspirin 325 MG Tablet PO (06:08)
[2018-12-17 06:09] LABS: POSITIVE COUNT NO; POSITIVE DIFFERENTIAL NO; POSITIVE MORPHOLOGY NO
[2018-12-17] MEDS: 0.9% Normal Saline 1,000 ML 15 ML IV (07:00)
[2018-12-17 07:05] LABS: Bedside Glucose 213 mg/dL (70-110)
--- NOTE | 2018-12-17 07:42 | NURSING ---
Report called to Tadeo in lab animal technician. He states they are ready for pt. The RN communicated this information to the dayshift RN, Yudi. She will resume care of pt at this time.
--- NOTE | 2018-12-17 08:36 | CL.D_ITS ---
Patient Name: GERARDO ALMONTE Study Date: 12/17/2018 Performing: Bo Song MD Ht: 68.11 inches 173 cm : 1940 Wt: 178.57 lbs 81 kg Age: 77 Gender: male BSA: 1.95 PROCEDURE(S) PERFORMED [id number]/LV CLINICAL PROFILE AND INDICATIONS Indications: ACS > 24 hrs Heart Failure: None Stress/Imaging Stress/Image Study Performed: No Angina Classification Anginal Classification w/in 2 Weeks: CCS IV CAD Presentations: Unstable angina. Comorbidities/Risk Factors: Hypertension Dyslipidemia Prior PCI Diabetes Mellitus: Diabetes Therapy: Oral CONCLUSIONS Non obstructive coronary arteries Widely patent RCA stent Normal LV size, wall motion,and systolic function LVEF: by LV gram 65 % RECOMMENDATIONS Risk factor modification ASA Indefinitely Management as per referring [employer] D/c plavix D/w Dr Cortez Manual sheath removal. DESCRIPTION OF PROCEDURE The patient arrived to the procedure lab. The risks and benefits of the procedure as well as a full d escription of our services here and current unavailability of surgical backup were fully explained to the patient and/or their significant other prior to the catheterization. The Timeout was completed, verifying the correct patient and procedure. The patient's procedural site was prepped and draped in the usual fashion. Local anesthetic was given subcutaneously to right groin region with Lidocaine 2%. Using a modified Seldinger technique, arterial access was obtained via the right femoral artery, a 4 Fr sheath was inserted Left Coronary Artery selective angiography was performed in multiple views us ing a 4 Fr. JL5 catheter. Right Coronary Artery selective angiography was then performed in multiple views using a 4 Fr. 3DRC catheter. Left Ventriculography was performed in BLANCHARD projection using a 4 Fr . Pigtail catheter. LV to AO pullback pressures were then recorded.The arterial sheath was pulled and manual compression applied until hemostasis is achieved. CORONARY ANGIOGRAPHY DOMINANCE: Right Dominant LEFT HEART ASSESSMENT Left Ventricular Ejection Fraction: by LV Gram 65 % Normal LV wall motion Normal Left Ventricular systolic function LVEDP: 11 mmHg Normal Left Ventricular End Diastolic Pressure LEFT MAIN: Mild luminal irregularities less than 30% LEFT ANTERIOR DECENDING ARTERY: PROX LAD: Mild luminal irregularities less than 30% MID LAD: Moderate luminal irregularities up to 50% DIAGONAL 1: Proximal - Non-obstructive CIRCUMFLEX ARTERY: Non-obstructive RIGHT CORONARY ARTERY: PROX RCA: Mild luminal irregularities less than 30% MID RCA: Previously placed stent is patent COMPLICATIONS No Complications PROCEDURE MEDICATIONS Oxygen: 2 L/min via nasal cannula Nitro 200 mcg IC 12/17/2018 08:18:46 SUMMARY OF HEMODYNAMIC DATA Time AIR REST ECG 08:01:45 AO 139/47 (69) SA 08:15:17 LV 135/-10, 5 08:23:28 LV 136/-8, 11 08:23:35 LVp 127/-12, 8 08:23:50 AOp 141/66 (91) 08:23:55 Signed By Bo Song MD On 12/17/2018 08:35:13 Bo Song MD
[2018-12-17] MEDS: traMADol 50 MG Tablet PO (09:08)
--- NOTE | 2018-12-17 11:10 | CASEMGMT ---
RN CM Assessment Presentation: Chest pain, SOB/CAD, Diabetes Intro role of CM and purpose of RN CM assessment to patient, daughter and friend in room. Pt is able to participate in RN CM assessment. Daughter was discussing financial POA papers and told pt they could be filled out in hospital. RN CM let them know that only medical DPOA and Living Will can be filled out at hospital and financial forms would need to be completed with bank or civil rights attorney. PCP: Dr. Dowling Preferred Pharmacy: [facility] Insurance: [place] MCR Prescription Benefit: yes. Castillo check for Tradjenta per [facility] is $186.00. Pt states he does not wish to pay this monthly. LENNY Castano notified and will look at other medications. Called to [facility] to not fill prescription.Crystal ordered- per [facility] $40/month and pt is able to afford this. Living Arrangements: Lives in two story home with first floor set up. Pt states he is independent in all ADL's. Transportation: Drives, or family/friend can assist with transportation DME: Pt denies use of ambulatory or oxygen DMe HHC: none DC PLAN: Home
--- NOTE | 2018-12-17 11:13 | DCINST_ITS ---
- Discharge Diagnoses Current Active Problems: Current Active and Chronic Problems (Last Reviewed 11/26/18 @ 15:16 by Teodora Merlos) Chest pain (Acute) CAD S/P percutaneous coronary angioplasty (Chronic) Fever (Acute) You will use the following diet at home:: Calorie/Carbohydrate Controlled (specify 1200, 1400, etc) - 1800 claire/day, Cardiac Your food should be the consistency of: Regular Your liquids should be the consistency of: Regular/Thin Discharge Activity: Return to Normal Activity Allergies/Adverse Reactions: Allergies amoxicillin Allergy (Verified 12/14/18 16:54) Unknown lactose Adverse Reaction (Intermediate, Verified 12/14/18 16:54) GI issues Golodon-Yxu-Gmd Reductase Inhibitor Adverse Reaction (Verified 12/14/18 16:54) Myalgia Medications to take at Discharge aspirin 325 mg tablet 325 mg PO DAILY 11/03/17 tramadol 50 mg tablet 50 mg PO DAILY 11/03/17 Cholecalciferol (Vitamin D3) [Vitamin D3] 2,000 unit PO DAILY 12/14/18 Ezetimibe 10 mg PO DAILY 12/14/18 Naproxen Sodium [Aleve] 220 mg PO PRN PRN 12/14/18 Linagliptin [Tradjenta] 5 mg PO DAILY #30 tablet 12/17/18 Metformin HCl [Glucophage] 500 mg PO TIDCM #0 12/17/18 The following prescriptions were given: Linagliptin [Tradjenta] 5 mg PO DAILY #30 tablet Primary Care Physician: Lc Dowling MD [Primary Care Provider] - Please follow up with your Primary Care Physician in: 1-2 weeks Test Results: Test results from this visit will be discussed in further detail at your follow- up appointment, if applicable. Proposed Discharge Date: 12/17/18
[2018-12-17] MEDS: Insulin Lispro 100 UNIT/ML INSULN.PEN SQ (11:32)
[2018-12-17] MEDS: Ezetimibe 10 MG Tablet PO (12:35)
--- NOTE | 2018-12-17 14:27 | EKG12_ITS ---
Test Reason : AM EKG Blood Pressure : / mmHG Vent. Rate : 077 BPM Atrial Rate : 077 BPM P-R Int : 216 ms QRS Dur : 100 ms QT Int : 398 ms P-R-T Axes : 066 007 058 degrees QTc Int : 450 ms Sinus rhythm with 1st degree A-V block with frequent Premature ventricular complexes Otherwise normal ECG Confirmed by YAMILEX MONSIVAIS, ESTEPHANIE ([id number]), publication editor SONYA JOHNSON ([id number]) on 12/19/2018 10:45:54 AM Referred By: CRISPIN Confirmed By:ESTEPHANIE KAMINSKI MD
--- NOTE | 2018-12-17 14:39 | PCM.DC.SUM ---
<Eyad Jaocbs - Last Filed: 12/17/18 14:39> Discharge Date and Diagnosis Date of Admission: 12/14/18 Date of Discharge: 12/17/18 - Primary Discharge Diagnosis Active and Suspected Problems (Last Reviewed 11/26/18 @ 15:16 by Teodora Merlos) Chest pain (Acute) - musculoskeletal Fever (Acute) - viral syndrome CAD prior RCA T2DM uncontrolled HTN HLD - Secondary Discharge Diagnosis Chronic Problems (Last Reviewed 11/26/18 @ 15:16 by Teodora Merlos) CAD S/P percutaneous coronary angioplasty (Chronic) H/O right coronary artery stent placement (Chronic 06/09/08) MARK to RCA w 3.0 x 23 mm Promus 06/09/2008 @ [facility] in [place], [place] Old myocardial infarction (Chronic) 2007 Sinus bradycardia (Chronic) Ventricular tachycardia (Chronic) Hyperlipidemia (Chronic) Atherosclerotic heart disease of [place] coronary artery without angina pectoris (Chronic) MARK to RCA w 3.0 x 23 mm Promus 06/09/2008 BPH (benign prostatic hyperplasia) (Chronic) HTN (hypertension) (Chronic) Diabetes mellitus (Chronic) Hospital Course and Treatment Imaging Results: RAD/Chest 1 View (Portable) IMPRESSION: Minor subsegmental scarring or atelectasis in the right lung base with mild associated elevation of the right diaphragm. Heart Cath: CONCLUSIONS Non obstructive coronary arteries Widely patent RCA stent Normal LV size, wall motion,and systolic function LVEF: by LV gram 65 % RECOMMENDATIONS Risk factor modification ASA Indefinitely Management as per referring Account Auditor D/c plavix D/w Dr Cortez Manual sheath removal. Consults: [place] - Cardiology Operations: None Procedures: Cardiac catheterization Summary of Care Provided: Hospital course: The patient is a 77 year old M with pmhx of CAD with prior stent (RCA), HTN, HLD, DMt2, who presents to the ER with c/o chest pain SOB body aches for 3 days. He had negative troponin and negative EKG, negative CXR. He did have a fever and was felt to have a viral syndrome. Cardiology was consulted for his CP. They felt that a heart cath was appropriate. This was performed with findings as above, no stents were placed, and medical therapy was recommended. He was started on imdur. Metformin was held for the cath. His blood sugar was poorly controlled and he was given sliding scale insulin. A1C was 8.9. He will continue aspirin. Unfortunately he is allergic to Statins, he will continue zetia. As part of risk factor modification a 2nd agent was recommended. He was agreeable to daily Victoza injections and this was ordered at [facility]. Trajenta was too expensive. He will hold metformin for 3 days then restart. He was discharged home in stable condition. He will follow up with his PCP in 1-2 weeks, and with cardiology as directed. This patient was seen by Eyad Jacobs PA-C under the supervision of Doctor Cortez. [] - Physical Exam General: Alert, Oriented x3, Cooperative HEENT: Atraumatic, PERRLA, EOMI, Normocephalic Neck: Supple, No JVD, Negative Carotid Bruits Lungs: Clear to auscultation, Normal air movement Cardiovascular: Regular rate, No murmurs Abdomen: Bowel Sounds Present, Soft, Non Tender Extremities: No edema, Capillary Refill Less than 3 Seconds Skin: No rashes, No breakdown Musculoskeletal: No Tenderness to Palpation of Joints or Extremities Neurological: Cranial nerves II-XII grossly intact Psych/Mental Status: Normal Affect, Appropriate, Alert and oriented to time, place, person, mood and affect Vital Signs Temp Pulse Resp BP Pulse Ox 97.7 F L 48 L 16 126/49 H 96 12/17/18 11:55 12/17/18 11:55 12/17/18 11:55 12/17/18 11:55 12/17/18 11:55 Oxygen Delivery Method Room Air Weight: 179 lb 7.3 oz Body Mass Index (BMI) 27.3 Finger Stick Blood Glucose 146 Intake and Output for Last 24 Hours 12/15/18 12/16/18 12/17/18 23:59 23:59 23:59 Intake Total 920 / 920 1180 / 1180 240 / 240 Output Total 500 / 500 Balance 920 / 920 1180 / 1180 -260 / -260 Microbiology Past 72 Hours 12/15/18 16:20 Urine Culture - Preliminary Urine, Clean Catch Mixed Gram Positive Organisms 12/14/18 20:40 Respiratory Panel (PCR) - Final Mucosa - Nasopharyngeal 12/14/18 20:40 Influenza Types A,B Direct FA (AIME) - Final Mucosa - Nasopharyngeal Laboratory Tests Past 24 Hrs 12/17/18 12/17/18 12/17/18 05:02 05:02 05:02 WBC 5.2 RBC 4.46 L Hgb 13.9 Hct 41.8 MCV 93.7 MCH 31.2 MCHC 33.3 RDW 12.3 RDW Differential 41.5 Plt Count 208 MPV 10.6 Immature Gran % (Auto) 0.200 Neut % (Auto) 56.5 Lymph % (Auto) 26.6 [place] % (Auto) 13.4 H Eos % (Auto) 2.9 Baso % (Auto) 0.4 Absolute Neuts (auto) 3.0 Absolute Lymphs (auto) 1.39 Total Counted Not Reportable PT 12.9 INR 1.0 APTT 33.5 Sodium 141 Potassium 4.3 Chloride 106 Carbon Dioxide 27.0 Anion Gap 8 BUN 26 H Creatinine 0.84 Estim Creat Clear Calc 72.38 Est GFR (MDRD) Af Amer 114 Est GFR (MDRD) Non-Af 94 BUN/Creatinine Ratio 31.0 H Glucose 187 H Calcium 8.3 L POC Glucose 12/17/18 12/16/18 12/16/18 06:54 21:43 16:21 POC Glucose 213 H 237 H 247 H Discharge Diet: Low fat/ Low Cholesterol, 1800 Calorie Control Diet, 2000 mg Sodium Diet Discharge Activity: Return to Normal Activity Home Medications: Medications to take at Discharge aspirin 325 mg tablet 325 mg PO DAILY 11/03/17 tramadol 50 mg tablet 50 mg PO DAILY 11/03/17 Cholecalciferol (Vitamin D3) [Vitamin D3] 2,000 unit PO DAILY 12/14/18 Ezetimibe 10 mg PO DAILY 12/14/18 Naproxen Sodium [Aleve] 220 mg PO PRN PRN 12/14/18 Linagliptin [Tradjenta] 5 mg PO DAILY #30 tablet 12/17/18 Liraglutide [Victoza] 0.6 mg SQ DAILY #1 pen 12/17/18 Metformin HCl [Glucophage] 500 mg PO TIDCM #0 12/17/18 Following Prescrptions Were Given to Patient: Linagliptin [Tradjenta] 5 mg PO DAILY #30 tablet Liraglutide [Victoza] 0.6 mg SQ DAILY #1 pen Primary Care Physician: Lc Dowling MD [Primary Care Provider] - Please follow up with your Primary Care Physician in: 1-2 weeks Please Follow Up With: Lc Dowling MD Please Follow Up With: Tanner Wright MD When: As directed Disposition: Home Minutes spent on discharge:: 35 Patient Condition:: Stable Medical Necessity - Tobacco Use Smoking Status: Former smoker Tobacco Use: Cigarettes Meaningful Use Info Meaningful Use Diagnoses (Choose all that apply): None applicable <Luis Cortez - Last Filed: 12/17/18 16:19> Discharge Date and Diagnosis - Secondary Discharge Diagnosis Chronic Problems (Last Reviewed 11/26/18 @ 15:16 by Teodora Merlos) CAD S/P percutaneous coronary angioplasty (Chronic) H/O right coronary artery stent placement (Chronic 06/09/08) MARK to RCA w 3.0 x 23 mm Promus 06/09/2008 @ [facility] in [place], [place] Old myocardial infarction (Chronic) 2007 Sinus bradycardia (Chronic) Ventricular tachycardia (Chronic) Hyperlipidemia (Chronic) Atherosclerotic heart disease of [place] coronary artery without angina pectoris (Chronic) MARK to RCA w 3.0 x 23 mm Promus 06/09/2008 BPH (benign prostatic hyperplasia) (Chronic) HTN (hypertension) (Chronic) Diabetes mellitus (Chronic) Hospital Course and Treatment Summary of Care Provided: This patient was seen in conjunction with Eyad Jacobs PA-C . I have independently interviewed and examined the patient and reviewed pertinent historical, laboratory, and other data. Please refer to Eyad Jacobs PA-C note for details of this patient's presentation, findings, and recommendations. I have reviewed Eyad Jacobs PA-C note and concur with documented findings. In brief, patient is a 77-year-old gentleman with history of CAD with previous stent placement who presented with chest pain. Patient was placed on a monitored bed [place] was ruled out with serial cardiac enzymes cardiology was consulted patient underwent left heart catheterization on 12/17/2018 which failed to demonstrate any obstructive lesions. Patient was discharged home with optimization of medical therapy Hospital course course: As documented above - Physical Exam Vital Signs Temp Pulse Resp BP Pulse Ox 97.7 F L 48 L 16 126/49 H 96 12/17/18 11:55 12/17/18 11:55 12/17/18 11:55 12/17/18 11:55 12/17/18 11:55 Oxygen Delivery Method Room Air Weight: 81.4 kg Body Mass Index (BMI) 27.3 Finger Stick Blood Glucose 146 Intake and Output for Last 24 Hours 12/15/18 12/16/18 12/17/18 23:59 23:59 23:59 Intake Total 920 / 920 1180 / 1180 240 / 240 Output Total 500 / 500 Balance 920 / 920 1180 / 1180 -260 / -260 Microbiology Past 72 Hours 12/15/18 16:20 Urine Culture - Preliminary Urine, Clean Catch Mixed Gram Positive Organisms 12/14/18 20:40 Respiratory Panel (PCR) - Final Mucosa - Nasopharyngeal 12/14/18 20:40 Influenza Types A,B Direct FA (AIME) - Final Mucosa - Nasopharyngeal Laboratory Tests Past 24 Hrs 12/17/18 12/17/18 12/17/18 05:02 05:02 05:02 WBC 5.2 RBC 4.46 L Hgb 13.9 Hct 41.8 MCV 93.7 MCH 31.2 MCHC 33.3 RDW 12.3 RDW Differential 41.5 Plt Count 208 MPV 10.6 Immature Gran % (Auto) 0.200 Neut % (Auto) 56.5 Lymph % (Auto) 26.6 [place] % (Auto) 13.4 H Eos % (Auto) 2.9 Baso % (Auto) 0.4 Absolute Neuts (auto) 3.0 Absolute Lymphs (auto) 1.39 Total Counted Not Reportable PT 12.9 INR 1.0 APTT 33.5 Sodium 141 Potassium 4.3 Chloride 106 Carbon Dioxide 27.0 Anion Gap 8 BUN 26 H Creatinine 0.84 Estim Creat Clear Calc 72.38 Est GFR (MDRD) Af Amer 114 Est GFR (MDRD) Non-Af 94 BUN/Creatinine Ratio 31.0 H Glucose 187 H Calcium 8.3 L POC Glucose 12/17/18 12/16/18 12/16/18 06:54 21:43 16:21 POC Glucose 213 H 237 H 247 H Code Visit Inpatient E&M: 48136 Disch Hosp
[2018-12-17 16:46] LABS: Bedside Glucose 304 mg/dL (70-110)
--- NOTE | 2018-12-18 16:09 | CASEMGMT ---
EFRA RANDOLPH Discharge Follow-up Phone Call: RAQUEL: Kenn Strata: 3 Call Date: 12/18/18 Discharge Date: 12/17/18 Time of Call: 1605 Duration: 5 min Admitting Diagnosis: Chest Pain uncertain etiology EFRA RANDOLPH completed follow-up phone call after recent hospitalization. Patient states he is doing okay, was getting ready to take a nap. Patient had no questions or concern regarding discharge instructions. Patient was able to fill prescriptions without any issues. Patient has follow-up appt with PCP on 12/25/18. Patient voiced no further concerns at this time.
== END 2018-12-17 15:19 | disposition home or self-care (01) | DRG 287 ==
LOC: ED 17:33 → PCU 19:04
PROVIDERS: Internal Medicine; Internal Medicine Cardiovascular Disease; Admitting Provider Family Medicine; Emergency Provider Emergency Medicine; Family Provider Family Medicine; PCP Family Medicine; Visit Provider Internal Medicine
DX: R07.89 Other chest pain (principal); B34.9 Viral infection, unspecified; E11.65 Type 2 diabetes mellitus with hyperglycemia; I25.10 Atherosclerotic heart disease of native coronary artery without angina pectoris; E78.5 Hyperlipidemia, unspecified; I10 Essential (primary) hypertension; Z95.5 Presence of coronary angioplasty implant and graft; Z87.891 Personal history of nicotine dependence; I25.2 Old myocardial infarction; Z79.84 Long term (current) use of oral hypoglycemic drugs; N40.0 Benign prostatic hyperplasia without lower urinary tract symptoms
CPT/HCPCS: 36415; 71045; 80048; 80061; 81001; 82962; 83036; 83735; 84484; 85025; 85610; 85730; 87040; 87086; 87088; 87633; 87804; 93005; 93458; 99283; J7030; J7040; A4216; C1769; C1894; Q9967

== ENCOUNTER 2019-01-02 09:53 | Day surgery (SDC) | payer MEDICARE, BC, SELFPAY ==
[2018-12-14 19:08] VITALS: BMI 27.3
[2018-12-26 10:02] VITALS: BP 144/85; PULSE 63; RESP 16; TEMP 36.4; O2SAT 96; BMI 27.1
[2018-12-26 10:51] LABS: Hemoglobin A1c 8.6 % (4.2-6.3)
--- NOTE | 2019-01-01 17:13 | PCM.HP.BLA ---
History and Physical Date of Admission: 01/02/19 77-year-old male with history very large prostate underwent a TURP several years ago. After the surgery he had to be taken back to the operating room for another resection cauterization of bleeding and retention of urine with blood clots. He now comes back to the office for a checkup is been having a lot of difficulties going to the bathroom frequency urgency slow flow poor emptying. Cystoscopy was done today to evaluate the situation. ALLERGIES: None MEDICATIONS: Ultram 50 mg tablet Aspirin Metformin Hcl Sildenafil 20 mg tablet 3 tablet PO 1 hour before erections as needed Vitamin D PSH: Complex Uroflow - 06/23/2016 Cystoscopy - 07/11/2016, 2014, 2003 Cystoscopy Fulguration - 2014 Cystoscopy TURP - 2014 Initial Male VB Sounds - 2016, 07/11/2016, 2015 Transrectal Biopsy US - 2003 NON- PSH: Cataract Surgery Cholecystectomy Colonoscopy - about 2012 Heart Stents - 2008 Patient documented to have received pneumococcal vaccination PMH: Orchitis - 02/15/2018 Benign prostatic hyperplasia with lower urinary tract symptoms - 12/12/2017, - 09/20/2016, - 07/11/2016, - 06/23/2016, - 2015, - 2014 (Stable), - 2013, - 2011 Feeling of incomplete bladder emptying - 12/12/2017 Urgency of urination (Stable) - 12/12/2017, - 04/04/2017, - 12/27/2016 Urethral stricture, unspecified - 04/04/2017, - 12/27/2016, - 2016, - 09/20/2016, - 07/11/2016, - 2015, - 2014, - 2014 Frequency of micturition - 2014, - 2014, - 2014, - 2014, - 2013, - 2011 Male erectile dysfunction, unspecified - 2014, - 2014, - 2013, - 2011 Urinary calculus, unspecified - 2008 NON- PMH: Non-ST elevation (NSTEMI) myocardial infarction - 2007 Athscl heart disease of [place] coronary artery w/o ang pctrs Heart disease, unspecified Unspecified hearing loss, unspecified ear Unspecified osteoarthritis, unspecified site Immunizations: Pneumovax Date Given: 09/22/2013 Dose: Pneumovax 23 25 mcg/0.5 ml syringe Administered By: FAMILY HISTORY: None SOCIAL HISTORY: Marital Status: Preferred Language: Upper Sorbian; Ethnicity: Not Or ; Race: White Current Smoking Status: Patient does not smoke anymore. Tobacco Use Assessment Completed: Used Smokeless in last 30 days? Smoking cessation counseling was provided. Uses smokeless tobacco. Social Drinker. Does not use drugs. Drinks 2 caffeinated drinks per day. Has not had a blood transfusion. Notes: Occas. chews tobacco and drinks caffiene REVIEW OF SYSTEMS: Constitutional: Patient denies fever, chills, weight loss, and weight gain. Genitourinary: use some urgency. Patient denies incontinence, painful urination, and blood in urine. Musculoskeletal: MTX intermittently. Patient reports sore muscles and arthritis. Patient denies back pain and gout. Hematologic/Lymphatic: Patient denies swollen glands, abnormal bleeding, transfusion history, and blood clots/dvt/pulmonary embolism. Notes: No changes, neg ROS Reviewed previous review of systems 02/15/2018. No changes. VITAL SIGNS: 12/13/2018 09:20 AM Weight 185 lb / 83.91 kg Height 70 in / 177.8 cm BP 128/64 mmHg BMI 26.5 kg/m? - BMI Counseling was provided. PHYSICAL EXAMINATION: Scrotum: No lesions. No edema. No cysts. No warts. Epididymides: Right: no spermatocele, no masses, no cysts, no tenderness, no induration, no enlargement. Left: no spermatocele, no masses, no cysts, no tenderness, no induration, no enlargement. Testes: No tenderness, no swelling, no enlargement left testes. No tenderness, no swelling, no enlargement right testes. Normal location left testes. Normal location right testes. No mass, no cyst, no varicocele, no hydrocele left testes. No mass, no cyst, no varicocele, no hydrocele right testes. Urethral Meatus: Normal size. No lesion, no wart, no discharge, no polyp. Normal location. Penis: Circumcised, no warts, no cracks. No dorsal Peyronie's plaques, no left corporal Peyronie's plaques, no right corporal Peyronie's plaques, no scarring, no warts. No balanitis, no meatal stenosis. MULTI-SYSTEM PHYSICAL EXAMINATION: Constitutional: Well-nourished. No physical deformities. Normally developed. Good grooming. Neck: Neck symmetrical, not swollen. Normal tracheal position. Respiratory: No labored breathing, no use of accessory muscles. Cardiovascular: Normal temperature, normal extremity pulses, no swelling, no varicosities. Lymphatic: No enlargement of neck, axillae, groin. Skin: No paleness, no jaundice, no cyanosis. No lesion, no ulcer, no rash. Neurologic / Psychiatric: Oriented to time, oriented to place, oriented to person. No depression, no anxiety, no agitation. Gastrointestinal: No mass, no tenderness, no rigidity, non obese abdomen. Eyes: Normal conjunctivae. Normal eyelids. Ears, Nose, Mouth, and Throat: Left ear no scars, no lesions, no masses. Right ear no scars, no lesions, no masses. Nose no scars, no lesions, no masses. Normal hearing. Normal lips. Musculoskeletal: Normal gait and station of head and neck. PAST DATA REVIEWED: Source Of History: Patient Lab Test Review: PSA Records Review: Previous Doctor Records, Previous Hospital Records, Previous Patient Records 12/12/17 12/18/14 11/07/13 10/01/12 09/27/11 09/27/10 11/20/08 03/30/07 PSA Total PSA 2.33 ng/mL 2.37 ng/mL 2.23 2.61 2.30 1.70 1.80 1.70 Notes [facility] [address] [place] [address]. [place], [address] This test was performed using the TPSA assay method for the [employer] chemistry system. Values obtained with different assay methods cannot be used interchangably. When changing PSA assays in the course of monitoring a patient, additional sequential testing should be carried out to confirm baseline values. Has pt arrived? Y Test performed at: [facility] [address] [place] [address]. [place] [address] This test was performed using the TPSA assay method for the [employer] chemistry system. Values obtained with different assay methods cannot be used interchangably. When changing PSA assays in the course of monitoring a patient, additional sequential testing should be carried out to confirm baseline values. 10/01/12 05/30/11 01/12/04 Hormones Testosterone, Total 310 pg/dL 340 pg/dL 375 pg/dL PROCEDURES: Flexible Cystoscopy - 88523 Risks, benefits, and some of the potential complications of the procedure were discussed at length with the patient including infection, bleeding, voiding discomfort, urinary retention, fever, chills, sepsis, and others. All questions were answered. Informed consent was obtained. Antibiotic prophylaxis was given. Sterile technique and intraurethral analgesia were used. Meatus: Normal size. Normal location. Normal condition. Urethra: No strictures. External Sphincter: Normal. Verumontanum: Normal. Prostate: Obstructing. Moderate hyperplasia. Heavy prostatic regrowth. Bladder Neck: Non-obstructing. Ureteral Orifices: Normal location. Normal size. Normal shape. Effluxed clear urine. Bladder: Moderate trabeculation. Normal mucosa. No stones. Urinalysis - 56655 Dipstick Dipstick Cont'd Specimen: Voided Blood: Neg Appearance: Clear pH: 5.0 Color: Yellow Protein: Neg Glucose: 100 Urobilinogen: Neg Bilirubin: Neg Nitrites: Neg Ketones: Neg Leukocyte Esterase: Neg ASSESSMENT: ICD-10 Details 1 : Benign prostatic hyperplasia with lower urinary tract symptoms - N40.1 2 Feeling of incomplete bladder emptying - R39.14 3 Frequency of micturition - R35.0 4 Urgency of urination - R39.15 PLAN: Schedule Procedure: Unspecified Date - Cystoscopy TURP - 54379 Document Letter(s): Created for Patient: Clinical Summary The risks, benefits, and some of the possible complications of the proposed procedure were discussed with the patient at length and in detail including the possibility of postoperative urinary urgency, frequency, incontinence, dysuria, hematuria, retrograde ejaculation, urinary retention, bladder neck contracture, and urethral stricture, as well as the need for a bladder biopsy, retrograde pyelograms, resection of a bladder lesion, dilation of the urethra, postoperative catheterization, placement of a ureteral stent, discovering asymptomatic prostate cancer and others. The possible need for postoperative treatments including further surgical procedures was discussed with the patient. The general risks of the operative procedure and the perioperative period were discussed with the patient at length and in detail including swelling, pain, nausea, vomiting, fever, chills, infection, wound infection, sepsis, renal failure, internal or external bleeding, intraoperative bowel, organ or vascular injuries, postoperative formation of scar tissue, the need for blood transfusions, deep venous thrombosis or blood clots, pulmonary embolus, pneumonia, respiratory failure, heart attack, stroke, he and others. All of the patient's questions were answered and he voiced an understanding of these risks, benefits and possible complications. The patient gave fully informed consent to proceed with the procedure. Notes: 77-year-old male on cystoscopy son have significant regrowth of the prostate bilateral hypertrophy of the prostate only a very mild mid-urethral stricture. You recommend we redo the TURP at the hospital to resect the regrowth of tissue still fairly large prostate reply take a significant amount a resection open up the channel. Possibly home a catheter after the procedure prostate we removed the catheter the after will see how goes. He seven a significant symptom so wants to proceed will set him up for TURP
[2019-01-02] VITALS (13 sets, daily range): BP systolic 115–141; BP diastolic 49–68; PULSE 60–88; RESP 16–18; TEMP 36.2–37.4; O2SAT 92–97; BMI 25.8
[2019-01-02 10:51] LABS: Bedside Glucose 142 mg/dL (70-110)
--- NOTE | 2019-01-02 12:00 | PROS_PTH ---
PATIENT: GERARDO ALMONTE LOC: [facility] – [place] U#:[id number] AGE/SX: 78/M ROOM: RE01/02/[address]: Dr. Lenard Giordano MD : 1940 BED: DIS: 01/03/2019 SPEC #: [id number] RECD: 01/02/19 13:52 STATUS: ORTIZ REMallika #: [id number] AMARA: 01/02/19 12:[address]: Lenard Giordano DEPT: SURGICAL PATHOLOGY RECD BY: Ramiro Lo ENTERED: 01/02/19 14:29 SP TYPE: TURP OTHR DR: Dr. Lc Dowling MD Tissues: Prostate, NOS Procedures: Surgery Specimen Level IV HEADER OPERATION: Transurethral resection of prostate with Olympus PRE-OP DIAGNOSIS: Benign prostate hyperplasia with lower urinary tract symptoms; feeling of incomplete bladder emptying; frequent micturition; urgency of urination TISSUE SUBMITTED: Prostate tissue MICROSCOPIC DIAGNOSIS Prostate, transurethral resection: Benign nodular hyperplasia, glandular and stromal types. Mild chronic inflammation and focal acute inflammation. AM:ravi 01/03/19 MICROSCOPIC DESCRIPTION Slides are reviewed. GROSS DESCRIPTION Received is one container labeled with the patient's name and designated prostate tissue. The specimen consists of multiple irregular fragments of pink-chambers, rubbery, soft tissue that in aggregate weigh 13 gm and measure in aggregate 6 x 6 x 2 cm. Popcorn Vendor tissue is submitted in 11 cassettes. About 90% of the specimen is submitted. / SPENCER:ravi 01/02/19 TC:3 CPT: 24950
[2019-01-02] MEDS: Cefazolin 2 GM in 0.9% Normal Saline 100 ML IV (12:11)
--- NOTE | 2019-01-02 12:19 | DCINST_ITS ---
Discharge Diet: Light diet - advance as tolerated Discharge Activity: May not drive while taking narcotic pain medications. Call your doctor if your incision/area has: Continuous Slow Oozing, Sudden Increased Bleeding, Increased Pain/ Swelling, Increased Redness, Foul Smelling Discharge, Swelling at the incision site Call your doctor if you observe: Fever of 101 or Higher Suture Line Care: Avoid Pulling/Pushing, Avoid Pinching/Bending Allergies/Adverse Reactions: Allergies amoxicillin Allergy (Verified 01/02/19 10:21) Unknown lactose Adverse Reaction (Intermediate, Verified 01/02/19 10:21) GI issues Ghyuvbo-Dzi-Kpj Reductase Inhibitor Adverse Reaction (Verified 01/02/19 10:21) Myalgia Medications to take at Discharge aspirin 325 mg tablet 325 mg PO DAILY 11/03/17 tramadol 50 mg tablet 50 mg PO DAILY 11/03/17 Cholecalciferol (Vitamin D3) [Vitamin D3] 2,000 unit PO DAILY 12/14/18 Ezetimibe 10 mg PO DAILY 12/14/18 Naproxen Sodium [Aleve] 220 mg PO PRN PRN 12/14/18 Liraglutide [Victoza] 0.6 mg SQ DAILY #1 pen 12/17/18 Metformin HCl [Glucophage] 500 mg PO TIDCM #0 12/17/18 Ciprofloxacin [Cipro] 500 mg PO BID #10 tablet 01/02/19 Ibuprofen 600 mg PO Q6H PRN PRN #14 tablet 01/02/19 Primary Care Physician: Lc Dowling MD [Primary Care Provider] - Test Results: Test results from this visit will be discussed in further detail at your follow- up appointment, if applicable. Please Follow Up With: Lenard Giordano MD When: in 2 weeks, please call to make an appointment. Proposed Discharge Date: 01/03/19
[2019-01-02] MEDS: Lubricating Jelly 60 GM Tube 30 GM TOPICAL (12:39)
--- NOTE | 2019-01-02 13:03 | PCM.OPRPT ---
Report of Operation Date of Procedure: 01/02/19 Pre-Operative Diagnosis: Regrowth of prostatic tissue with obstruction, moderate urethral stricture Post-Operative Diagnosis: The same Surgery/Procedure Performed:: Dilation of mid membranous urethral stricture and transurethral resection of regrowth of the prostate Description of Surgical Findings:: 78-year-old male who underwent a TURP 5 years ago at [facility], he now presents to the office for a follow-up is been having difficulty emptying his bladder slow stream hard to go. On cystoscopy was found to have a mid urethral stricture was able to get this 18 Mohawk scope through it and he does have significant regrowth on the patient's left side of the prostate. Today we will proceed with a transurethral resection of the prostate and dilation of the stricture. 78-year-old male taken back to the operating room after smooth induction of general anesthesia was placed in dorsolithotomy position went into the bladder with a 26 Mohawk continuous flow resectoscope once I encountered the stricture was too tight can go through this it was in the mid urethra so I dilated to 26 Mohawk with sounds tried again with a 26 Mohawk scope it is just again to try to go through so I suspect over the 24 Mohawk noncontinuous flow with the Olympus bipolar system I was able to get through the stricture with this I then encountered the prostate he had significant regrowth of the prostate on the left side of the prostate blocking off the urinary channel I proceeded with the resection most of the resection was done the left side of the prostate all the way back down to the verumontanum a little bit of resection on the right liver resection of the roof after resecting this tissue was about a cupful I then cauterized the resection site really well we checked the sphincter the sphincter was intact, checked the stricture and he did have a mid urethral stricture that was dilated. I then placed a 22 Mohawk catheter into the bladder and continues bladder irrigation as anatomy was that he had a stricture in the mid urethra this was dilated sphincter was intact verumontanum was intact for short length prostate between the Annie and the bladder neck regrowth of tissue on the left side of the prostate is only resected today and then smooth bladder with no tumors or stones within the bladder left and right ureteral orifice were in good position. 22 Mohawk catheter put in the bladder continues bladder irrigation the patient's anesthetic is currently reversed. Type of Anesthesia:: General Drains: 22fr 3 way - Admit VTE Documentation VTE Present on Admission: No VTE Mechan Device Prophylaxis: SCD's
[2019-01-02 13:31] LABS: Bedside Glucose 131 mg/dL (70-110)
[2019-01-02] MEDS: 0.9% Normal Saline 1,000 ML 75 ML IV ×2 (14:35→21:27)
[2019-01-02] MEDS: 0.9% NaCl Peripheral Flush Adult/Peds IV (15:43)
[2019-01-02] MEDS: Ketorolac 15 MG/ML Vial IV ×2 (15:43→23:49)
[2019-01-02] MEDS: oxyCODONE 5 MG Tablet PO (19:06)
[2019-01-02] MEDS: Acetaminophen 325 MG Tablet PO (19:40)
[2019-01-02] MEDS: Docusate Sodium 100 MG Capsule PO (21:25)
[2019-01-02] MEDS: Ciprofloxacin 400 MG/200 ML BAG 200 MG IV (21:27)
[2019-01-03 00:02] VITALS: BP 118/61; PULSE 78; RESP 16; TEMP 36.7; O2SAT 97
[2019-01-03] MEDS: oxyCODONE 5 MG Tablet PO (02:14)
[2019-01-03] MEDS: Acetaminophen 325 MG Tablet PO (02:15)
[2019-01-03 02:21] VITALS: BP 119/68; PULSE 65; RESP 16; TEMP 36.6; O2SAT 93
[2019-01-03 07:16] LABS: Hematocrit 42.8 % (40-54); Mean Corp Hgb Conc 32.7 g/gl (32-36); Mean Corpuscular Volume 94.7 fL (80-94); Mean Platelet Vol. 10.8 fl (6.2-12.0); Platelet Count 312 K/mm3 (150-450); RBC Distribution Width CV 12.4 % (11.6-14.6); RBC Distribution Width SD 42.6 fl (35.1-43.9); Red Blood Count 4.52 M/mm3 (4.6-6.2); White Blood Count 10.2 K/mm3 (4.4-11.0)
[2019-01-03 07:17] LABS: Scan Indicated on CBC? Y/N NO
[2019-01-03 07:47] LABS: Anion Gap 6 (5-15); BUN 17 mg/dL (7-18); BUN/Creat Ratio 18.2 RATIO (10-20); Calcium,Total 8.4 mg/dL (8.5-10.1); Chloride 108 mmol/L (98-107); Creatinine, Serum 0.94 mg/dL (0.70-1.30); EST Glomerular Filtration Rate 83 mL/min (>60); Est Glom Filt Rate - Afr Amer 101 mL/min (>60); Estimated Creatinine Clearance 65.81 ml/min; Glucose 282 mg/dL (74-106); Potassium 4.1 mmol/L (3.5-5.1); Sodium Level 141 mmol/L (136-145)
[2019-01-03 09:34] VITALS: BP 124/55; PULSE 72; RESP 16; TEMP 36.4; O2SAT 97
[2019-01-03] MEDS: Pantoprazole Sodium 40 MG Tablet PO (09:38)
[2019-01-03] MEDS: Docusate Sodium 100 MG Capsule PO (09:38)
[2019-01-03] MEDS: Ciprofloxacin 400 MG/200 ML BAG 200 MG IV (09:39)
[2019-01-03 12:37] VITALS: BP 127/59; PULSE 52; RESP 16; TEMP 36.7; O2SAT 97
== END 2019-01-03 12:49 | disposition home or self-care (01) ==
LOC: SDC 09:54 → AC 09:55 → MS2 13:05
PROVIDERS: Anesthesiology; Family Provider Family Medicine; PCP Family Medicine; Referring Provider Urology; Visit Provider Urology
PROC: (CPT 52630; principal; 2019-01-02 11:50)
DX: N40.1 Benign prostatic hyperplasia with lower urinary tract symptoms (principal); N35.919 Unspecified urethral stricture, male, unspecified site; N41.0 Acute prostatitis; N41.1 Chronic prostatitis; R39.14 Feeling of incomplete bladder emptying; R35.0 Frequency of micturition; R39.15 Urgency of urination; N32.89 Other specified disorders of bladder; I25.10 Atherosclerotic heart disease of native coronary artery without angina pectoris; E11.9 Type 2 diabetes mellitus without complications; M19.90 Unspecified osteoarthritis, unspecified site; H91.90 Unspecified hearing loss, unspecified ear; F41.9 Anxiety disorder, unspecified; Z79.84 Long term (current) use of oral hypoglycemic drugs; Z79.82 Long term (current) use of aspirin; Z79.899 Other long term (current) drug therapy; I25.2 Old myocardial infarction; Z87.891 Personal history of nicotine dependence; Z95.5 Presence of coronary angioplasty implant and graft
CPT/HCPCS: 52630; 36415; 80048; 82962; 83036; 85027; 88305; 99406; J7030; J7120; A4216; J0744; J2405

== ENCOUNTER → 2019-01-23 11:14 | Outpatient (CLI) | payer MEDICARE, BC, SELFPAY ==
[2019-01-02 15:34] VITALS: BMI 25.8
== END ==
PROVIDERS: Family Provider Family Medicine; PCP Family Medicine; Referring Provider Nurse Practitioner Adult Health; Visit Provider Nurse Practitioner Adult Health
DX: R31.9 Hematuria, unspecified (principal)
CPT/HCPCS: 87086

== ENCOUNTER → 2019-07-03 08:31 | Outpatient (CLI) | payer MEDICARE, BC, SELFPAY ==
[2019-06-20 14:24] VITALS: BMI 26.0
[2019-07-03 10:16] LABS: AST(SGOT) 18 U/L (15-37); Alanine Aminotransfer ALT/SGPT 26 U/L (16-61); Albumin, Serum 3.5 g/dL (3.2-5.0); Alkaline Phosphatase 88 U/L (45-117); Bilirubin, Direct 0.16 mg/dL (0.00-0.30); Cholesterol 161 mg/dL (200); Globulin 3.6 g/dL (2.2-4.2); High Density Lipoprotein 62 mg/dL; Protein, Total 7.1 g/dL (6.4-8.2); Triglycerides 197 mg/dL; Very Low Density Lipoprotein 39 mg/dL (5-40)
== END ==
PROVIDERS: Family Provider Family Medicine; PCP Family Medicine; Referring Provider Internal Medicine Cardiovascular Disease; Visit Provider Internal Medicine Cardiovascular Disease
DX: E78.5 Hyperlipidemia, unspecified (principal); I25.10 Atherosclerotic heart disease of native coronary artery without angina pectoris
CPT/HCPCS: 36415; 80061; 80076

== ENCOUNTER 2019-12-11 05:50 | Emergency (ER) | payer MEDICARE, BC, OTHER, SELFPAY ==
[2019-06-20 14:24] VITALS: BMI 26.0
[2019-12-11 05:52] VITALS: BP 175/54; PULSE 52; RESP 20; TEMP 36.5; O2SAT 97; BMI 27.9
--- NOTE | 2019-12-11 06:01 | ED.DCSUM_ITS ---
History of Present Illness Chief Complaint: Ear Problem Informant: Patient Onset: Today Narrative: Patient evaluated for foreign body in his left ear. Piece of his hearing aid was left in his ear. Patient initially thought it fell onto the ground and then put a new piece in his ear. This caused the initial piece to be pushed in further he was unable to get it out so he came to the emergency room. Patient denies associated pain. He denies any other complaints. Past Medical History - Allergies and Home Meds Allergies/Adverse Reactions: Allergies amoxicillin Allergy (Verified 12/11/19 05:56) Unknown lactose Adverse Reaction (Intermediate, Verified 12/11/19 05:56) GI issues Uhpshrw-Svb-Nmd Reductase Inhibitor Adverse Reaction (Verified 12/11/19 05:56) Myalgia Primary Care Physician: Lc Dowling MD [Primary Care Provider] - Past Medical History: - - Hypertension Surgical History: noncontributory Smoking Status: Never smoker Review of Systems General: Denies: Chills, Fever, Sweats Eyes: Denies: Visual changes - bilaterally, Diplopia ENT: Reports: - - Foreign body in the left ear. Denies: Right ear pain, Sore throat Cardiovascular: Denies: Chest pain Respiratory: Denies: Dyspnea, Cough Skin: Denies: Rash, Wounds Neurological: Denies: Headache, Weakness Physical Exam Vital Signs/Narrative: Vital Signs Temp Pulse Resp BP Pulse Ox 12/11/19 05:52 97.7 F L 52 L 20 H 175/54 H 97 Inital Vital Signs reviewed: Yes General: Well nourished, Well developed, No Acute Distress Head: Normocephalic, Atraumatic Eyes: Perrl, EOMI ENT: Moist mucous membranes, No rhinorrhea, TM's clear, - - Soft silicone-like foreign body lodged in the left ear canal Neck: Supple, Nontender Cardiovascular: Regular rate, Regular rhythm Respiratory: No distress, CTA bilaterally Skin: Normal color, No rash Neurological: Alert, Oriented x3 Psychological: Normal affect, Normal Mood Diagnostic/Tx/Re-eval - Medical Decision Making Evaluated for foreign body into the left ear. Patient has the plastic tip of his hearing aid lodged in his ear canal. This is removed with alligator forceps. Patient tolerated procedure well. No obvious complications. No bleeding noted in the ear canal and a normal tympanic membrane on the left. Patient is counseled on signs and symptoms requiring return to the emergency ro om. Patient verbalizes agreement and understand this plan. Patient discharged home in stable and improved condition. ED Disposition - Plan for ED Patient: Disposition: Home or Assisted Living Diagnosis: Foreign body in left ear, initial encounter Instructions: Foreign Object in the Ear or Nose Referrals: Lc Dowling MD [Primary Care Provider] -
[2019-12-11 06:22] VITALS: BP 138/82
== END 2019-12-11 06:23 | disposition home or self-care (01) ==
LOC: ED 06:19
PROVIDERS: Emergency Provider Emergency Medicine; PCP Family Medicine
DX: T16.2XXA Foreign body in left ear, initial encounter (principal); X58.XXXA Exposure to other specified factors, initial encounter; Y93.9 Activity, unspecified; Y92.89 Other specified places as the place of occurrence of the external cause; Y99.9 Unspecified external cause status; I10 Essential (primary) hypertension; Z79.84 Long term (current) use of oral hypoglycemic drugs; Z79.82 Long term (current) use of aspirin; Z79.899 Other long term (current) drug therapy; Z88.8 Allergy status to other drugs, medicaments and biological substances
CPT/HCPCS: 99282

== ENCOUNTER 2020-11-19 14:05 | Outpatient (RCR) | payer MEDICARE, OTHER, SELFPAY ==
[2020-07-23 07:36] VITALS: BMI 26.6
== END 2020-11-19 23:59 ==
LOC: IMMUN 14:05
PROVIDERS: PCP Family Medicine; Visit Provider Family Medicine
DX: Z23 Encounter for immunization (principal)
CPT/HCPCS: 0011A; 0012A; 91301

== ENCOUNTER → 2020-11-30 14:34 | Outpatient (CLI) | payer MEDICARE, OTHER, SELFPAY ==
[2020-07-23 07:36] VITALS: BMI 26.6
[2020-11-30 17:44] LABS: Absolute Lymphocyte Count 1.54 X10^3/uL (0.83-4.51); Absolute Neutrophil Count 6.8 X10^3/uL (2.0-7.7); Basophil# 0.04 X10^3/uL; Basophil% 0.4 % (0-1); Eosinophil# 0.16 X10^3/uL; Eosinophils% 1.7 % (0-5); Hematocrit 45.9 % (40-54); Hemoglobin 15.2 g/dL (13.0-16.5); Lymphocyte # 1.54 X10^3/ul (4.0); Lymphocyte % 16.3 % (19-41); Mean Corp Hgb Conc 33.1 g/dL (32-36); Mean Corpuscular Hgb 31.1 pg (27.0-32.0); Mean Corpuscular Volume 93.9 fL (80-94); Mean Platelet Vol. 11.9 fl (6.2-12.0); Monocyte# 0.81 X10^3/uL; Monocyte% 8.6 % (0-10); NRBC Flagged by Analyzer 0 % (0-5); Neutrophil # 6.84 X10^3/uL (2.7-7.7); Neutrophil % 72.4 % (47-70); Platelet Count 254 K/mm3 (150-450); RBC Distribution Width CV 11.9 % (11.6-14.6); RBC Distribution Width SD 41.2 fl (35.1-43.9); Red Blood Count 4.89 M/mm3 (4.6-6.2); White Blood Count 9.5 K/mm3 (4.4-11.0)
[2020-11-30 18:06] LABS: Vitamin D,25 Hydroxy 27.8 ng/mL
[2020-11-30 18:09] LABS: ALB/GLOB Ratio 0.9 RATIO (0.9-2.4); AST(SGOT) 13 U/L (15-37); Alanine Aminotransfer ALT/SGPT 21 U/L (16-61); Albumin, Serum 3.6 g/dL (3.2-5.0); Alkaline Phosphatase 95 U/L (45-117); Anion Gap 2 (5-15); BUN 21 mg/dL (7-18); BUN/Creat Ratio 19.1 RATIO (10-20); Calcium,Total 8.9 mg/dL (8.5-10.1); Chloride 104 mmol/L (98-107); EST Glomerular Filtration Rate 69 mL/min (>60); Est Glom Filt Rate - Afr Amer 83 mL/min (>60); Globulin 3.8 g/dL (2.2-4.2); Glucose 283 mg/dL (74-106); Potassium 4.1 mmol/L (3.5-5.1); Protein, Total 7.4 g/dL (6.4-8.2); Sodium Level 137 mmol/L (136-145); Thyroid Stim Hormone (TSH) 2.19 uIU/mL (0.358-3.74)
== END ==
PROVIDERS: PCP Family Medicine; Visit Provider Family Medicine
DX: E11.9 Type 2 diabetes mellitus without complications (principal); R00.1 Bradycardia, unspecified; E55.9 Vitamin D deficiency, unspecified
CPT/HCPCS: 36415; 80053; 82306; 84443; 85025

== ENCOUNTER 2021-09-27 23:04 | Emergency (ER) | payer MEDICARE, OTHER, SELFPAY ==
[2021-09-27 23:05] VITALS: BP 157/65; PULSE 41; RESP 16; TEMP 36; O2SAT 97; BMI 23.6
--- NOTE | 2021-09-27 23:09 | ED.RN ---
Patient given a cup of water for patient to drink upside down to see if helps with hiccups. Tolerated well but then states he is having blood sugar issues, after hiccups relieved. Reports last checked it and 255 at had been 320 yesterday.
[2021-09-27 23:20] LABS: Bedside Glucose 257 mg/dL (70-110)
--- NOTE | 2021-09-28 00:54 | EDS_ITS ---
HPI History of Present Illness Chief Complaint: Hyperglycemia Detail of Chief Complaint: Diffuse body aches. Hiccups. Informant: patient Onset/Context/Timing Onset: Today and Days Context: Gradual Onset Timing: Continuous Current Severity: Mild Maximum Severity: Mild Narrative Narrative: 80-year-old male said he just does not feel well. Aching all over. He is also complained his blood sugar being elevated around 300 he does have a known history of type 2 diabetes. Denies any dysuria but states he has frequency but that is not new of his urine. Denies any fever. Denies any vomiting or diarrhea. No constipation. Denies any cough or shortness of breath. Prior similar symptoms: Yes Recent Illness/Hospitalization: No PFSH PFSH Medical History Atherosclerotic heart disease of [place] coronary artery without angina pectoris Diabetes mellitus Essential hypertension Fever Hyperlipidemia Old myocardial infarction Presence of stent in coronary artery (~06/09/08) Sinus bradycardia Ventricular tachycardia Home Medications cholecalciferol (vitamin D3) 2,000 unit PO DAILY 12/14/18 [History Last Taken 12/13/18] aspirin 81 mg tablet,delayed release 81 mg PO DAILY 12/27/19 [History Last Taken Unknown] tramadol 50 mg tablet 50 mg PO DAILY PRN 12/27/19 [History Last Taken Unknown] metformin 500 mg tablet 500 mg PO BID tab 06/01/21 [History Last Taken Unknown] ezetimibe [Zetia] 10 mg PO DAILY 09/27/21 [History Last Taken Unknown] liraglutide [Victoza 2-Marcio] 0.6 mg SQ DAILY 09/27/21 [History Last Taken Unknown] cephalexin 500 mg PO Q6H 10 Days #40 cap 09/28/21 [Rx Last Taken Unknown] Allergy/AdvReac Type Severity Reaction Status Date / Time amoxicillin Allergy Unknown Verified 06/01/21 15:44 lactose AdvReac Intermediate GI issues Verified 06/01/21 15:44 Bcrmdfc-RYT-JzF Reductase AdvReac Myalgia Verified 06/01/21 15:44 Inhibitor [Mbiikbg-Jyd-Fqd Reductase Inhibitor] Family History Father CAD (coronary artery disease) Mother CAD (coronary artery disease) Hyperlipidemia Brother CAD (coronary artery disease) Diabetes Sister Hypertension Surgical History History of left heart catheterization (12/17/18) Hx of cholecystectomy Presence of coronary angioplasty implant and graft (~06/09/08) S/P TURP (transurethral resection of prostate) (~2014) Social History Smoking Status: Never smoker ROS ROS ED ROS Narrative Body aches. Review of Systems ROS Unobtainable: Denies due to encephalopathy Constitutional Constitutional ED: Denies fever(s) Eyes Eyes: Denies change in vision ENT ENT ED: Denies ear pain Cardiovascular Cardiovascular: Denies chest pain Respiratory/Chest Respiratory/Chest: Denies cough or dyspnea Gastrointestinal Gastrointestinal: Denies abdominal pain, diarrhea, nausea or vomiting Genitourinary Genitourinary ED: Reports urinary frequency; Denies dysuria Musculoskeletal Musculoskeletal: Reports myalgias Integumentary Denies rash Neurologic Neurologic: Denies headache(s) Psychiatric Psychiatric: Denies depression Endocrine Endocrinology: Denies polyuria EXAM Physical Exam Narrative Exam Narrative: 10-year-old male no acute distress vital signs stable afebrile I did look septic or toxic. He is afebrile and his pulse ox is 97% on room air no hypoxia. HEENT exam unremarkable. Neck nontender no JVD. Lungs clear to auscultation bilaterally. Heart regular rhythm no murmur. Abdomen soft nontender normal bowel sounds no peritoneal signs. Patient moving all 4 extremities. Calves are nontender. Back nontender. Skin unremarkable. Neurologically is awake and alert with no focal motor deficits. He is a very benign exam. He is having hiccups. Const Vital Signs: 09/27/21 23:05 09/28/21 01:16 Temperature 96.8 F L Temperature Source Oral Pulse Rate 41 L Respiratory Rate 16 Respiratory Effort Normal Respiratory Pattern Normal Blood Pressure 157/65 H Blood Pressure Mean 95 Pulse Ox 97 Oxygen Delivery Method Room Air Positive well nourished and well developed; Negative for obese, cachectic, contractures or unkempt General Appearance ED: well developed and NAD; Negative for unkempt, cachectic, contractures or pallor Nutritional Appearance: Negative for cachectic or obese HEENT Reports moist mucous membranes Negative for trauma or tenderness Eyes PERRL and EOMs intact bilaterally Neck no lymphadenopathy, supple and no JVD General: Negative for tenderness Chest Wall inspection of chest normal and palpation of chest normal Resp normal respiratory effort and clear to auscultation bilaterally Auscultation: Negative for rales, rhonchi or wheezes Cardio regular rate, regular rhythm, S1 normal heart sound, S2 normal heart sound and no murmurs GI normal to inspection, nondistended, normoactive bowel sounds, non-tender, non- distended and no masses Auscultation: normoactive bowel sounds Palpation: soft; Negative for tender, guarding or rebound tenderness present Back/Spine no CVA tenderness General Back: Negative for CVA tenderness Extremity normal to inspection General Extremety ED: Negative for edema or tenderness General Extremity: Negative for edema Neuro oriented x3 and CN's II-XII intact bilaterally Sensorium / Orientation: alert and orientation impaired; Negative for lethargic or stuporous Motor Exam: strength 5/5 throughout Psych mental status grossly normal Appearance: Negative for unkempt Attitude: No agitated Mood & Affect: Negative for depressed or tearful Skin no rashes or lesions noted, no wounds and skin turgor normal General Skin Exam: Negative for elasticity normal, jaundice or pallor MDM MDM MDM Narrative Medical decision making narrative: 80-year-old male with very vague complaints and benign exam. He will be given IM Thorazine for his hiccups. Screening labs are being obtained due to his hyperglycemia. Repeat exam patient is doing well at 2:15 AM. Urine culture will be sent. Treated for UTI. Lab Data Attestation: I reviewed the patient's lab results. Lab results narrative: Covid test negative. CBC shows a white count 12.6. Hemoglobin of 15. Platelets 290. UA 25-50 white cells. No squamous cells 2+ bacteria no nitrates. Occult blood. Glucose 257. Electrolytes unremarkable gap of 8 normal BUN and creatinine. Glucose 245 liver enzymes unremarkable. Urine culture will be sent. Labs: Laboratory Results - last 24 hr 09/27/21 09/27/21 09/28/21 23:15 23:32 00:58 WBC 12.6 H RBC 4.86 Hgb 15.1 Hct 44.6 MCV 91.8 MCH 31.1 MCHC 33.9 RDW Std Deviation 39.4 RDW Coeff of Mirtha 11.6 Plt Count 290 MPV 10.7 Immature Gran % (Auto) 0.400 Neut % (Auto) 75.0 H Lymph % (Auto) 12.5 L [place] % (Auto) 11.8 H Eos % (Auto) 0.1 Baso % (Auto) 0.2 Absolute Neuts (auto) 9.4 H Absolute Lymphs (auto) 1.57 Nucleated RBC % 0 Sodium Potassium Chloride Carbon Dioxide Anion Gap BUN Creatinine Estim Creat Clear Calc Est GFR (MDRD) Af Amer Est GFR (MDRD) Non-Af BUN/Creatinine Ratio Glucose Calcium Total Bilirubin AST ALT Alkaline Phosphatase Total Protein Albumin Globulin Albumin/Globulin Ratio Urine Color Yellow Urine Clarity Clear Urine pH 5.0 Ur Specific [place] 1.020 Urine Protein 30 H Urine Glucose (UA) 50 H Urine Ketones 5 H Urine Occult Blood 10 H Urine Nitrite Negative Urine Bilirubin Negative Urine Urobilinogen Normal Ur Leukocyte Esterase 500 H Urine RBC 0-5 SEEN Urine WBC 25-50 SEEN Ur Squamous Epith Cells 0 SEEN Urine Bacteria 2+ Urine Mucus 1+ POC Glucose 257 H 09/28/21 00:58 WBC RBC Hgb Hct MCV MCH MCHC RDW Std Deviation RDW Coeff of Mirtha Plt Count MPV Immature Gran % (Auto) Neut % (Auto) Lymph % (Auto) [place] % (Auto) Eos % (Auto) Baso % (Auto) Absolute Neuts (auto) Absolute Lymphs (auto) Nucleated RBC % Sodium 138 Potassium 4.4 Chloride 101 Carbon Dioxide 29.0 Anion Gap 8 BUN 18 Creatinine 0.99 Estim Creat Clear Calc 60.50 Est GFR (MDRD) Af Amer 94 Est GFR (MDRD) Non-Af 78 BUN/Creatinine Ratio 18.2 Glucose 245 H Calcium 9.8 Total Bilirubin 0.60 AST 10 L ALT 16 Alkaline Phosphatase 92 Total Protein 7.9 Albumin 3.3 Globulin 4.6 H Albumin/Globulin Ratio 0.7 L Urine Color Urine Clarity Urine pH Ur Specific [place] Urine Protein Urine Glucose (UA) Urine Ketones Urine Occult Blood Urine Nitrite Urine Bilirubin Urine Urobilinogen Ur Leukocyte Esterase Urine RBC Urine WBC Ur Squamous Epith Cells Urine Bacteria Urine Mucus POC Glucose Discharge Plan Triage Chief Complaint: Hyperglycemia ED Provider: Piter Joel Dx/Rx/DC Orders Clinical Impression: Acute UTI, Hyperglycemia due to type 2 diabetes mellitus Instructions: Urinary Tract Infections in Men Prescriptions: New cephalexin 500 mg capsule 500 mg PO Q6H 10 Days Qty: 40 RF: 0 No Action aspirin [Adult Aspirin Regimen] 81 mg tablet,delayed release (DR/EC) 81 mg PO DAILY RF: 0 tramadol 50 mg tablet 50 mg PO DAILY PRN (Reason: Pain) RF: 0 metformin 500 mg tablet 500 mg PO BID RF: 0 cholecalciferol (vitamin D3) 2,000 UNIT capsule 2,000 unit PO DAILY RF: 0 ezetimibe [Zetia] 10 mg tablet 10 mg PO DAILY RF: 0 Victoza 2-Marcio 0.6 MG/0.1 ML pen injector 0.6 mg SQ DAILY RF: 0 Primary Care Provider: Lc Dowling Referrals: Lc Dowling MD [Primary Care Provider] - 3-5 Days Activity Restrictions/Additional Instructions: Watch your blood sugars closely. Plenty of fluids and rest You have a urinary tract infection. We are going to send a urine culture. You will be started on antibiotic Keflex 1 pill 4 times a day for 10 days. Follow-up with your doctor to ensure you are improving. Disposition Disposition: Home, Self Care
[2021-09-28 01:07] LABS: Absolute Lymphocyte Count 1.57 X10^3/uL (0.83-4.51); Absolute Neutrophil Count 9.4 X10^3/uL (2.0-7.7); Basophil# 0.02 X10^3/uL; Basophil% 0.2 % (0-1); Eosinophil# 0.01 X10^3/uL; Eosinophils% 0.1 % (0-5); Hematocrit 44.6 % (40-54); Hemoglobin 15.1 g/dL (13.0-16.5); Lymphocyte # 1.57 X10^3/ul (0.83-4.51); Lymphocyte % 12.5 % (19-41); Mean Corp Hgb Conc 33.9 g/dL (32-36); Mean Corpuscular Hgb 31.1 pg (27.0-32.0); Mean Corpuscular Volume 91.8 fL (80-94); Mean Platelet Vol. 10.7 fl (6.2-12.0); Monocyte# 1.48 X10^3/uL; Monocyte% 11.8 % (0-10); NRBC Flagged by Analyzer 0 % (0-5); Neutrophil # 9.43 X10^3/uL (2.7-7.7); Platelet Count 290 K/mm3 (150-450); RBC Distribution Width CV 11.6 % (11.6-14.6); RBC Distribution Width SD 39.4 fl (35.1-43.9); Red Blood Count 4.86 M/mm3 (4.6-6.2); White Blood Count 12.6 K/mm3 (4.4-11.0)
[2021-09-28] MEDS: ChlorproMAZINE 50 MG/2 ML Ampul 25 MG IM (01:11)
[2021-09-28 01:13] LABS: Squamous Epithelial Cells - UA 0 SEEN /hpf (0-5)
[2021-09-28 01:15] LABS: Color, Urine Yellow (Yellow); Glucose, Dipstick 50 mg/dl (Normal); Ketone-Dipstick 5 mg/dl (Negative); Leukocyte Esterase-Dipstick 500 /ul (Negative); Nitrite-Dipstick Negative (Negative); Occult Blood-Urine 10 /ul (Negative); Protein-Dipstick 30 mg/dl (Negative); Urine Bilirubin Dipstick Negative (Negative); Urine Clarity Clear (Clear); Urine Urobilinogen Normal (Normal)
[2021-09-28 01:28] LABS: ALB/GLOB Ratio 0.7 RATIO (0.9-2.4); AST(SGOT) 10 U/L (15-37); Alanine Aminotransfer ALT/SGPT 16 U/L (16-61); Albumin, Serum 3.3 g/dL (3.2-5.0); Alkaline Phosphatase 92 U/L (45-117); Anion Gap 8 (5-15); BUN 18 mg/dL (7-18); BUN/Creat Ratio 18.2 RATIO (10-20); Calcium,Total 9.8 mg/dL (8.5-10.1); Chloride 101 mmol/L (98-107); Creatinine, Serum 0.99 mg/dL (0.70-1.30); EST Glomerular Filtration Rate 78 mL/min (>60); Est Glom Filt Rate - Afr Amer 94 mL/min (>60); Globulin 4.6 g/dL (2.2-4.2); Glucose 245 mg/dL (74-106); Potassium 4.4 mmol/L (3.5-5.1); Protein, Total 7.9 g/dL (6.4-8.2); Sodium Level 138 mmol/L (136-145)
[2021-09-28 01:56] LABS: Bacteria 2+ /hpf (None Seen); Mucous, Urine 1+ /hpf (<or=2+); Red Blood Cells-Urine 0-5 SEEN /hpf (0-5); White Blood Cells 25-50 SEEN /hpf (0-5)
[2021-09-28] MEDS: Cephalexin 250 MG Capsule 500 MG PO (02:36)
== END 2021-09-28 02:36 | disposition home or self-care (01) ==
PROVIDERS: Emergency Provider Emergency Medicine; PCP Family Medicine
DX: N39.0 Urinary tract infection, site not specified (principal); E11.65 Type 2 diabetes mellitus with hyperglycemia; R06.6 Hiccough; Z20.822 Contact with and (suspected) exposure to COVID-19; I25.10 Atherosclerotic heart disease of native coronary artery without angina pectoris; I10 Essential (primary) hypertension; E78.5 Hyperlipidemia, unspecified; I25.2 Old myocardial infarction; Z95.5 Presence of coronary angioplasty implant and graft; Z79.82 Long term (current) use of aspirin; Z79.84 Long term (current) use of oral hypoglycemic drugs; Z79.899 Other long term (current) drug therapy
CPT/HCPCS: 80053; 81001; 82962; 85025; 87077; 87086; 87088; 87186; 87426; 96372; 99282; A4216

== ENCOUNTER 2021-09-30 09:09 | Emergency (ER) | payer MEDICARE, OTHER, SELFPAY ==
[2021-09-30 09:11] VITALS: BP 162/89; PULSE 90; RESP 16; TEMP 36.2; O2SAT 98; BMI 23.4
--- NOTE | 2021-09-30 09:41 | RAD_ITS ---
STUDY: X-RAY - ACUTE ABDOMINAL SERIES REASON FOR EXAM: Male, 80 years old. Abdominal pain TECHNIQUE: Single view of the chest. Supine, and erect view(s) of the abdomen were obtained. COMPARISON: Comparison is made with prior chest radiograph dated 12/14/2018. FINDINGS: Stable elevation of the right hemidiaphragm. The lungs are clear. Normal size heart. Calcified bilateral hilar lymph nodes. Normal visualized pulmonary arteries. Normal visualized aortic arch and descending thoracic aorta. There is an abundance of fecal material throughout the colon. The patient is status post cholecystectomy. There are degenerative changes of the visualized lumbar spine. RAD/Acute Abdomen Inc Chest IMPRESSION: Large amount of fecal material is seen in the colon. Electronically Signed: Mode Serrano MD at 10:20 EST , Service support ,
[2021-09-30] MEDS: ChlorproMAZINE 50 MG/2 ML Ampul 25 MG IM (09:53)
[2021-09-30 09:59] LABS: Bacteria 0 SEEN /hpf (None Seen); Mucous, Urine 0 SEEN /hpf (<or=2+); Squamous Epithelial Cells - UA 0 SEEN /hpf (0-5)
[2021-09-30 10:01] LABS: Color, Urine Yellow (Yellow); Glucose, Dipstick 1000 mg/dl (Normal); Ketone-Dipstick 50 mg/dl (Negative); Leukocyte Esterase-Dipstick 100 /ul (Negative); Nitrite-Dipstick Negative (Negative); Occult Blood-Urine 25 /ul (Negative); Protein-Dipstick 100 mg/dl (Negative); Urine Bilirubin Dipstick Negative (Negative); Urine Clarity Clear (Clear); Urine Urobilinogen Normal (Normal)
[2021-09-30 10:06] LABS: Red Blood Cells-Urine 0-5 SEEN /hpf (0-5); White Blood Cells 5-10 SEEN /hpf (0-5)
[2021-09-30 10:13] LABS: Absolute Lymphocyte Count 0.85 X10^3/uL (0.83-4.51); Absolute Neutrophil Count 9.9 X10^3/uL (2.0-7.7); Basophil# 0.02 X10^3/uL; Basophil% 0.2 % (0-1); Hematocrit 43.4 % (40-54); Hemoglobin 14.9 g/dL (13.0-16.5); Lymphocyte # 0.85 X10^3/ul (0.83-4.51); Lymphocyte % 6.8 % (19-41); Mean Corp Hgb Conc 34.3 g/dL (32-36); Mean Corpuscular Hgb 31.5 pg (27.0-32.0); Mean Corpuscular Volume 91.8 fL (80-94); Mean Platelet Vol. 10.9 fl (6.2-12.0); Monocyte# 1.63 X10^3/uL; NRBC Flagged by Analyzer 0 % (0-5); Neutrophil # 9.94 X10^3/uL (2.7-7.7); Neutrophil % 79.3 % (47-70); POSITIVE DIFFERENTIAL YES; Platelet Count 288 K/mm3 (150-450); RBC Distribution Width CV 11.5 % (11.6-14.6); RBC Distribution Width SD 39.2 fl (35.1-43.9); Red Blood Count 4.73 M/mm3 (4.6-6.2); White Blood Count 12.5 K/mm3 (4.4-11.0)
[2021-09-30 10:14] LABS: Differential Indicated SCAN CRITERIA MET
[2021-09-30 10:31] LABS: ALB/GLOB Ratio 0.6 RATIO (0.9-2.4); AST(SGOT) 15 U/L (15-37); Alanine Aminotransfer ALT/SGPT 24 U/L (16-61); Albumin, Serum 2.9 g/dL (3.2-5.0); Alkaline Phosphatase 97 U/L (45-117); Anion Gap 6 (5-15); BUN 16 mg/dL (7-18); BUN/Creat Ratio 16.2 RATIO (10-20); Chloride 97 mmol/L (98-107); Creatinine, Serum 0.99 mg/dL (0.70-1.30); EST Glomerular Filtration Rate 78 mL/min (>60); Est Glom Filt Rate - Afr Amer 94 mL/min (>60); Globulin 4.8 g/dL (2.2-4.2); Glucose 315 mg/dL (74-106); Protein, Total 7.7 g/dL (6.4-8.2); Sodium Level 135 mmol/L (136-145)
--- NOTE | 2021-09-30 11:44 | EDS_ITS ---
HPI History of Present Illness Chief Complaint: Abd Pain Informant: patient Onset/Context/Timing Onset: Weeks (1) Context: Gradual Onset Timing: Continuous Quality: Hiccups Location: Abdomen Worsened by: Nothing Relieved by: Nothing Narrative Narrative: Patient presents with hiccups that have been constant for the past week. Patient states he was seen here earlier this week and received a shot of a medication which help with the hiccups. Patient states this lasted a pproximately 1 hour and then the hiccups returned. Patient states they have been otherwise constant. Patient states nothing makes it better nothing makes it worse. Patient states she was also diagnosed with a urinary tract infection at that time. Patient is currently on antibiotics for that. Patient denies any fevers or chills. Patient denies any nausea or vomiting. Patient states he feels bloated in his abdomen. PFSH [facility] Medical History Atherosclerotic heart disease of [place] coronary artery without angina pectoris Diabetes mellitus Essential hypertension Fever Hyperlipidemia Old myocardial infarction Presence of stent in coronary artery (~06/09/08) Sinus bradycardia Ventricular tachycardia Home Medications cholecalciferol (vitamin D3) 2,000 unit PO DAILY 12/14/18 [History Last Taken 12/13/18] aspirin 81 mg tablet,delayed release 81 mg PO DAILY 12/27/19 [History Last Taken Unknown] tramadol 50 mg tablet 50 mg PO DAILY PRN 12/27/19 [History Last Taken Unknown] metformin 500 mg tablet 500 mg PO BID tab 06/01/21 [History Last Taken Unknown] ezetimibe [Zetia] 10 mg PO DAILY 09/27/21 [History Last Taken Unknown] liraglutide [Victoza 2-Marcio] 0.6 mg SQ DAILY 09/27/21 [History Last Taken Unknown] cephalexin 500 mg PO Q6H 10 Days #40 cap 09/28/21 [Rx Last Taken Unknown] chlorpromazine 25 mg PO Q6H PRN #12 tab 09/30/21 [Rx Last Taken Unknown] Allergy/AdvReac Type Severity Reaction Status Date / Time amoxicillin Allergy Unknown Verified 09/30/21 09:14 lactose AdvReac Intermediate GI issues Verified 09/30/21 09:14 Aharpcw-GGG-AjZ Reductase AdvReac Myalgia Verified 09/30/21 09:14 Inhibitor [Kjgnfls-Qqu-Wub Reductase Inhibitor] Family History Father CAD (coronary artery disease) Mother CAD (coronary artery disease) Hyperlipidemia Brother CAD (coronary artery disease) Diabetes Sister Hypertension Surgical History History of left heart catheterization (12/17/18) Hx of cholecystectomy Presence of coronary angioplasty implant and graft (~06/09/08) S/P TURP (transurethral resection of prostate) (~2014) Social History Smoking Status: Never smoker ROS ROS ED Constitutional Constitutional ED: Denies chills or fever(s) Eyes Eyes: Denies blurry vision or change in vision ENT ENT ED: Denies rhinorrhea or sore throat Cardiovascular Cardiovascular: Denies chest pain or palpitations Respiratory/Chest Respiratory/Chest: Denies cough or dyspnea Gastrointestinal Gastrointestinal: Denies nausea or vomiting Genitourinary Genitourinary ED: Denies dysuria or hematuria Musculoskeletal Musculoskeletal: Denies back pain or neck pain Integumentary Denies abscess or rash Neurologic Neurologic: Denies headache(s) or weakness Allergic/Immunologic Allergic/Immunologic ED: Denies mouth swelling or urticaria EXAM Physical Exam Const Vital Signs: 09/30/21 09:11 Temperature 97.2 F L Temperature Source Temporal Pulse Rate 90 Respiratory Rate 16 Blood Pressure 162/89 H Blood Pressure Mean 113 Pulse Ox 98 Oxygen Delivery Method Room Air Positive well nourished and well developed General Appearance ED: well developed HEENT Reports moist mucous membranes Neck supple and no JVD Resp normal respiratory effort and clear to auscultation bilaterally Cardio regular rate, regular rhythm and no murmurs GI non-tender Palpation: soft Extremity normal to inspection General Extremety ED: Negative for edema or tenderness General Extremity: Negative for edema Neuro oriented x3, CN's II-XII intact bilaterally and no sensory deficits noted Sensorium / Orientation: alert Motor Exam: strength 5/5 throughout Psych mental status grossly normal Skin no rashes or lesions noted MDM MDM MDM Narrative Medical decision making narrative: Patient was given injection of Thorazine here. Patient states his symptoms improved for approximately 1 hour. CBC shows a mild leukocytosis of 12.5. This is consistent with prior results. Comprehensive metabolic profile is within normal limits. Urinalysis shows a leukocyte Estrace of 100 with 5-10 white blood cells. This is improved from previous results. Acute abdominal x-rays were obtained. There are 5 views. On my interpretation, there is a large amount of stool throughout the colon. Patient was given a dose of oral Thorazine here. Patient was given a prescription for a short course of oral Thorazine. Patient was also instructed to take laxatives to help with his constipation. Patient was instructed to follow-up with his primary care physician in 3 to 5 days. Patient understood and was agreeable with the plan. All questions were answered. Lab Data Attestation: I reviewed the patient's lab results. Labs: Laboratory Results - last 24 hr 09/30/21 09/30/21 09/30/21 09:55 10:00 10:00 WBC 12.5 H RBC 4.73 Hgb 14.9 Hct 43.4 MCV 91.8 MCH 31.5 MCHC 34.3 RDW Std Deviation 39.2 RDW Coeff of Mirtha 11.5 L Plt Count 288 MPV 10.9 Immature Gran % (Auto) 0.700 Neut % (Auto) 79.3 H Lymph % (Auto) 6.8 L [place] % (Auto) 13.0 H Eos % (Auto) 0.0 Baso % (Auto) 0.2 Absolute Neuts (auto) 9.9 H Absolute Lymphs (auto) 0.85 Nucleated RBC % 0 Differential Comment COMMENT Diff Path Review May foll Sodium 135 L Potassium 4.0 Chloride 97 L Carbon Dioxide 32.0 Anion Gap 6 BUN 16 Creatinine 0.99 Estim Creat Clear Calc 60.50 Est GFR (MDRD) Af Amer 94 Est GFR (MDRD) Non-Af 78 BUN/Creatinine Ratio 16.2 Glucose 315 H Calcium 10.0 Total Bilirubin 0.70 AST 15 ALT 24 Alkaline Phosphatase 97 Total Protein 7.7 Albumin 2.9 L Globulin 4.8 H Albumin/Globulin Ratio 0.6 L Urine Color Yellow Urine Clarity Clear Urine pH 5.0 Ur Specific [place] 1.020 Urine Protein 100 H Urine Glucose (UA) 1000 H Urine Ketones 50 H Urine Occult Blood 25 H Urine Nitrite Negative Urine Bilirubin Negative Urine Urobilinogen Normal Ur Leukocyte Esterase 100 H Urine RBC 0-5 SEEN Urine WBC 5-10 SEEN Ur Squamous Epith Cells 0 SEEN Urine Bacteria 0 SEEN Urine Mucus 0 SEEN Radiography Diagnostic Testing: Clinical Impression(s) from Imaging Studies Acute Abdomen Series 09/30/21 09:41 IMPRESSION: Large amount of fecal material is seen in the colon. Electronically Signed: Mode Serrano MD at 10:20 EST , Service support , Discharge Plan Triage Chief Complaint: Abd Pain ED Provider: Sunil Choudhary Dx/Rx/DC Orders Clinical Impression: Hiccups, Constipation Instructions: ED Constipation (Adult), ED Hiccups Prescriptions: New chlorpromazine 25 mg tablet 25 mg PO Q6H PRN (Reason: hiccups) Qty: 12 RF: 0 No Action aspirin [Adult Aspirin Regimen] 81 mg tablet,delayed release (DR/EC) 81 mg PO DAILY RF: 0 tramadol 50 mg tablet 50 mg PO DAILY PRN (Reason: Pain) RF: 0 metformin 500 mg tablet 500 mg PO BID RF: 0 cholecalciferol (vitamin D3) 2,000 UNIT capsule 2,000 unit PO DAILY RF: 0 ezetimibe [Zetia] 10 mg tablet 10 mg PO DAILY RF: 0 Victoza 2-Marcio 0.6 MG/0.1 ML pen injector 0.6 mg SQ DAILY RF: 0 cephalexin 500 mg capsule 500 mg PO Q6H 10 Days Qty: 40 RF: 0 Primary Care Provider: Lc Dowling Referrals: Lc Dowling MD [Primary Care Provider] - 3-5 Days Disposition Disposition: Home, Self Care
[2021-09-30] MEDS: ChlorproMAZINE 25 MG Tablet PO (14:00)
[2021-09-30 14:01] VITALS: BP 90/70; PULSE 78
[2021-10-04 10:30] LABS: Pathologist Review Reviewed
== END 2021-09-30 14:06 | disposition home or self-care (01) ==
PROVIDERS: Emergency Provider Emergency Medicine; PCP Family Medicine
DX: K59.00 Constipation, unspecified (principal); R06.6 Hiccough; I25.10 Atherosclerotic heart disease of native coronary artery without angina pectoris; E11.9 Type 2 diabetes mellitus without complications; I10 Essential (primary) hypertension; E78.5 Hyperlipidemia, unspecified; Z79.82 Long term (current) use of aspirin; Z79.84 Long term (current) use of oral hypoglycemic drugs; Z79.899 Other long term (current) drug therapy; I25.2 Old myocardial infarction; Z87.440 Personal history of urinary (tract) infections; Z95.5 Presence of coronary angioplasty implant and graft
CPT/HCPCS: 74022; 80053; 81001; 85025; 96372; 99284

== ENCOUNTER 2022-03-15 02:08 | Emergency (ER) | payer MEDICARE, OTHER, SELFPAY ==
[2022-03-15 02:10] VITALS: BP 165/77; PULSE 91; RESP 18; TEMP 37; O2SAT 97; BMI 23.8
--- NOTE | 2022-03-15 02:24 | EX.ED.GUMALE ---
HPI History of Present Illness Chief Complaint: Complaint Detail of Chief Complaint: Unable to urinate Informant: patient Pain Onset: Today, Yesterday and Days Context: Gradual Onset Timing: Continuous Current Severity: Mild Maximum Severity: Moderate Narrative Narrative: 81-year-old male history of CAD, stent, diabetes, hypertension, BPH with a prior TURP procedure. That was around 10 years ago. States he had difficulty urinating on the last several months with decreased stream. Saw his urologist Dr. Archie Giordano and it sounds like he was developing a stricture. Patient's had a prior Bunn catheter before but not recently. He denies any dysuria or hematuria. No fever. Said he had very minimal urine output in the last 48 hours. He was urinating on Monday. Prior similar symptoms: Yes Recent Illness/Hospitalization: No PFSH PFSH Medical History Atherosclerotic heart disease of [place] coronary artery without angina pectoris Diabetes mellitus Essential hypertension Fever Hyperlipidemia Old myocardial infarction Presence of stent in coronary artery (~06/09/08) Sinus bradycardia Ventricular tachycardia Home Medications tramadol 50 mg tablet 50 mg PO DAILY PRN 12/27/19 [History Last Taken Unknown] metformin 500 mg tablet 500 mg PO BID tab 06/01/21 [History Last Taken Unknown] ezetimibe [Zetia] 10 mg PO DAILY 09/27/21 [History Last Taken Unknown] liraglutide [Victoza 2-Marcio] 1.2 mg SQ DAILY 09/27/21 [History Last Taken Unknown] Allergy/AdvReac Type Severity Reaction Status Date / Time milk Allergy Intermediate upset Verified 12/20/21 11:07 stomach, diarrhea amoxicillin Allergy Unknown Verified 12/20/21 11:06 lactose AdvReac Intermediate GI issues Verified 12/20/21 11:06 Bhdjuki-OVJ-DfQ Reductase AdvReac Myalgia Verified 12/20/21 11:06 Inhibitor [Wwrzfdh-Yep-Oxc Reductase Inhibitor] Family History Father CAD (coronary artery disease) Mother CAD (coronary artery disease) Hyperlipidemia Brother CAD (coronary artery disease) Diabetes Sister Hypertension Surgical History History of left heart catheterization (12/17/18) Hx of cholecystectomy Presence of coronary angioplasty implant and graft (~06/09/08) S/P TURP (transurethral resection of prostate) (~2014) Social History Smoking Status: Former smoker Smokeless tobacco user: chewing tobacco how long ago did patient quit smoking: > 1 year ago alcohol intake: never substance use type: does not use caffeine: Yes Type: coffee ROS ROS ED ROS Narrative Difficulty urinating. Review of Systems ROS Unobtainable: Denies due to encephalopathy Constitutional Constitutional ED: Denies fever(s) Eyes Eyes: Denies change in vision ENT ENT ED: Denies ear pain Cardiovascular Cardiovascular: Denies chest pain Respiratory/Chest Respiratory/Chest: Denies cough or dyspnea Gastrointestinal Gastrointestinal: Denies abdominal pain, diarrhea, nausea or vomiting Genitourinary Genitourinary ED: Denies dysuria or hematuria Musculoskeletal Musculoskeletal: Denies myalgias Integumentary Denies rash Neurologic Neurologic: Denies headache(s) Psychiatric Psychiatric: Denies depression Endocrine Endocrinology: Denies polyuria Hematologic/Lymphatic Hematologic/Lymphatic: Denies easy bruising Allergic/Immunologic Allergic/Immunologic ED: Denies urticaria EXAM Physical Exam Narrative Exam Narrative: 81-year-old male no acute distress. Vital signs stable afebrile. HEENT exam unremarkable. Lungs are clear. Heart regular rate and rhythm. Abdomen soft. Nondistended normal bowel sounds. Suprapubic fullness consistent with a distended bladder. External exam unremarkable. Circumcised penis. No hematuria. Urethra unremarkable. Moving all 4 extremities. No edema. Neurologically, he is awake and alert. Const Vital Signs: 03/15/22 02:10 Temperature 98.6 F Temperature Source Oral Pulse Rate 91 Respiratory Rate 18 Blood Pressure 165/77 H Blood Pressure Mean 106 Pulse Ox 97 Oxygen Delivery Method Room Air Positive well nourished and well developed; Negative for obese, cachectic, contractures or unkempt General Appearance ED: well developed; Negative for unkempt, cachectic, contractures or pallor Nutritional Appearance: Negative for cachectic or obese HEENT Reports moist mucous membranes normocephalic and atraumatic; Negative for trauma or tenderness Eyes PERRL and EOMs intact bilaterally Neck no lymphadenopathy, supple and no JVD General: Negative for tenderness Resp normal respiratory effort and clear to auscultation bilaterally Auscultation: Negative for rales, rhonchi or wheezes Cardio regular rate, regular rhythm, S1 normal heart sound, S2 normal heart sound and no murmurs GI non-distended and no masses; Negative for non-tender GI Narrative: Mild suprapubic tenderness. Auscultation: normoactive bowel sounds Palpation: soft Rectal Exam: tenderness Penis: normal penis and circumcised; Negative for uncircumcised Meatus: meatus normal; Negative for meatal discharge or blood at meatus Scrotum: testes descended bilaterally Back/Spine no CVA tenderness General Back: Negative for CVA tenderness Extremity normal to inspection General Extremety ED: Negative for edema or tenderness General Extremity: Negative for edema Neuro oriented x3 and moves all extremities Sensorium / Orientation: alert, oriented to person, oriented to place and oriented to time; Negative for confused or stuporous Psych mental status grossly normal Appearance: Negative for unkempt Mood & Affect: Negative for depressed Skin General Skin Exam: Negative for jaundice or pallor Lesions: no lesions Rashes: no rashes MDM MDM MDM Narrative Medical decision making narrative: 81-year-old male with urinary retention. Nurses attempted to pass a 16 [place] Bunn and then a 14 [place] coud? and were unsuccessful. I also attempted with a coud? catheter and we are hitting resistance. Also an 8 [place] Bunn catheter was attempted along with a larger coud? and again unsuccessful. I have already spoken to Dr. Archie Giordano on-call for urology and he will be in to evaluate the patient and place a Bunn catheter. Dr. Giordano was able to place a Bunn catheter after urethral dilatation. Patient will be discharged home with outpatient follow-up with him in 2 weeks. Discharged home with a Bunn leg bag. Lab Data Attestation: I reviewed the patient's lab results. Lab results narrative: BMP unremarkable. Gap of 4 BUN is 16 creatinine 0.9. Glucose 267. Labs: Laboratory Results - last 24 hr 03/15/22 02:33 Sodium 138 Potassium 4.2 Chloride 105 Carbon Dioxide 29.0 Anion Gap 4 L BUN 16 Creatinine 0.92 Estim Creat Clear Calc 64.04 Est GFR (MDRD) Af Amer 102 Est GFR (MDRD) Non-Af 84 BUN/Creatinine Ratio 17.4 Glucose 267 H Calcium 9.0 Discharge Plan Triage Chief Complaint: Complaint ED Provider: Piter Joel Dx/Rx/DC Orders Clinical Impression: Acute urinary retention, Urethral stricture, History of diabetes mellitus, History of transurethral resection of prostate, History of BPH Instructions: ED Urethral Stricture, ED Urinary Retention, Male Prescriptions: No Action tramadol 50 mg tablet 50 mg PO DAILY PRN (Reason: Pain) RF: 0 metformin 500 mg tablet 500 mg PO BID RF: 0 ezetimibe [Zetia] 10 mg tablet 10 mg PO DAILY RF: 0 Victoza 2-Marcio 0.6 MG/0.1 ML pen injector 1.2 mg SQ DAILY RF: 0 Primary Care Provider: Lc Dowling Referrals: Lenard Giordano MD [STAFF PHYSICIAN] - 1-2 Weeks Lc Dowling MD [Primary Care Provider] - Activity Restrictions/Additional Instructions: Leave the Bunn catheter in. Call and follow-up with Dr. Archie Giordano in 2 weeks. Disposition Disposition: Home, Self Care
[2022-03-15 02:56] LABS: Anion Gap 4 (5-15); BUN 16 mg/dL (7-18); BUN/Creat Ratio 17.4 RATIO (10-20); Chloride 105 mmol/L (98-107); Creatinine, Serum 0.92 mg/dL (0.70-1.30); EST Glomerular Filtration Rate 84 mL/min (>60); Est Glom Filt Rate - Afr Amer 102 mL/min (>60); Estimated Creatinine Clearance 64.04 ml/min; Glucose 267 mg/dL (74-106); Potassium 4.2 mmol/L (3.5-5.1); Sodium Level 138 mmol/L (136-145)
--- NOTE | 2022-03-15 03:18 | PCM.CONS.U ---
Assessment & Plan Assessment/Plan (1) Urethral stricture: PLAN: will have to procedure at bedside to place a alegria. (2) Acute urinary retention: HPI Consult Data Date of Consult: 03/15/22 HPI Narrative HPI Narrative: GERARDO ALMONTE, is a 81 M who presents with a severe urethra stricture, has not been drinking fluids for several days, comes in to ER and having a hard time voiding, so came in and did an evaluation. bladder scan at bedside PVR 176 only able to dribble know to have severe stricture disease. [facility] Medical History Atherosclerotic heart disease of [place] coronary artery without angina pectoris Diabetes mellitus Essential hypertension Fever Hyperlipidemia Old myocardial infarction Presence of stent in coronary artery (~06/09/08) Sinus bradycardia Ventricular tachycardia Home Medications tramadol 50 mg tablet 50 mg PO DAILY PRN 12/27/19 [History Last Taken Unknown] metformin 500 mg tablet 500 mg PO BID tab 06/01/21 [History Last Taken Unknown] ezetimibe [Zetia] 10 mg PO DAILY 09/27/21 [History Last Taken Unknown] liraglutide [Victoza 2-Marcio] 1.2 mg SQ DAILY 09/27/21 [History Last Taken Unknown] Allergy/AdvReac Type Severity Reaction Status Date / Time milk Allergy Intermediate upset Verified 12/20/21 11:07 stomach, diarrhea amoxicillin Allergy Unknown Verified 12/20/21 11:06 lactose AdvReac Intermediate GI issues Verified 12/20/21 11:06 Ziuoher-Kzw-Dmt Reductase AdvReac Myalgia Verified 12/20/21 11:06 Inhibitor Family History Father CAD (coronary artery disease) Mother CAD (coronary artery disease) Hyperlipidemia Brother CAD (coronary artery disease) Diabetes Sister Hypertension Surgical History History of left heart catheterization (12/17/18) Hx of cholecystectomy Presence of coronary angioplasty implant and graft (~06/09/08) S/P TURP (transurethral resection of prostate) (~2014) Social History Smoking Status: Former smoker Smokeless tobacco user: chewing tobacco how long ago did patient quit smoking: > 1 year ago alcohol intake: never substance use type: does not use caffeine: Yes Type: coffee Physical Exam Const alert and oriented x3 General Appearance: cooperative HEENT normocephalic, head/scalp atraumatic, EAC's normal and TM's normal bilaterally Eyes PERRL and EOMs intact bilaterally Pupil: sluggish Neck no lymphadenopathy, supple and no JVD General: trachea midline Lymph Lymphatic: no lymphadenopathy noted, lymphedema and lymphadenopathy Resp normal respiratory effort, normal air movement and clear to auscultation bilaterally Cardio regular rate, regular rhythm and peripheral pulses 2+ throughout GI soft to palpation, non-tender and non-distended Extremity normal capillary refill and no clubbing, cyanosis or edema General Extremity: no tenderness to palpation of joints or extremities Skin no rashes or lesions noted General Skin Exam: turgor normal Lesions: no lesions Rashes: no rashes Neuro CN's II-XII intact bilaterally Speech: speech normal Motor Exam: strength 5/5 throughout; Negative for general weakness Psych thought process normal, cooperative and affect normal Appearance: appropriate Lab / Micro Data Result Diagrams: 03/15/22 02:33 03/15/22 02:33 Labs: Laboratory Results - last 24 hr 03/15/22 02:33: Sodium 138, Potassium 4.2, Chloride 105, Carbon Dioxide 29.0, Anion Gap 4 L, BUN 16, Creatinine 0.92, Estim Creat Clear Calc 64.04, Est GFR (MDRD) Af Amer 102, Est GFR (MDRD) Non-Af 84, BUN/Creatinine Ratio 17.4, Glucose 267 H, Calcium 9.0
--- NOTE | 2022-03-15 03:20 | PCM.OPRPT ---
Report of Operation Date of Procedure: 03/15/22 Pre-Operative Diagnosis: urethral strictures disease Post-Operative Diagnosis: same Surgery/Procedure Performed:: Dilation of urethral strictures and placement of alegria 16fr. Description of Surgical Findings:: Penis and testicles were prepped and draped in usual sterile fashion, I then used the wire guide in the kit provided and first went in with a straight wire I had immediate resistance and then I went past this resistance and but encountered a second resistance could not get through the second resistant even after gentle manipulation so I pulled out the wire and then we used the angle-tip hooked wire and was able to get through that with first resistance by some gentle manipulation and then fortunately was able to get to the second stricture once the wire was in place and I used the dilators in the kit started off with 12 [place], then 14 [place], then 16 [place], and finally dilated to 18 [place] after complete dilation of the strictures. Then using a catheter guide through the southern ute tip catheter then over the wire I put in a 16 [place] southern ute tip catheter into the bladder then pulled out the guide and then inflated 10 cc in the balloon. There we connected the catheter to the drainage [place]. Patient tolerated procedure well he will go home with a catheter he will need to follow-up 2 weeks in my office for a evaluation and cysto. Surgeon: juan a Type of Anesthesia: Local Drains: 16fr alegria southern ute tip Admit VTE Documentation VTE Present on Admission: No VTE Mechan Device Prophylaxis: SCD's VTE Pharm Prophylaxis ordered?: No
[2022-03-15 03:43] VITALS: BP 145/78; PULSE 80; RESP 16; O2SAT 97
[2022-03-15 03:49] LABS: Color, Urine Yellow (Yellow); Glucose, Dipstick 100 mg/dl (Normal); Ketone-Dipstick Negative (Negative); Leukocyte Esterase-Dipstick 500 /ul (Negative); Mucous, Urine 0 SEEN /hpf (<or=2+); Nitrite-Dipstick Positive (Negative); Occult Blood-Urine 250 /ul (Negative); Protein-Dipstick 30 mg/dl (Negative); Specific Gravity, Urine 1.015 (1.002-1.030); Urine Clarity Sl. Cloudy (Clear); Urine Urobilinogen 4 mg/dl (Normal)
[2022-03-15 04:13] LABS: Bacteria 2+ /hpf (None Seen); Red Blood Cells-Urine 25-50 SEEN /hpf (0-5); Squamous Epithelial Cells - UA 0-5 SEEN /hpf (0-5); Urine Bilirubin Dipstick 1 mg/dL (Negative); White Blood Cells 25-50 SEEN /hpf (0-5)
== END 2022-03-15 03:43 | disposition home or self-care (01) ==
PROVIDERS: Emergency Provider Emergency Medicine; PCP Family Medicine; Visit Provider Emergency Medicine
DX: R33.9 Retention of urine, unspecified (principal); N35.919 Unspecified urethral stricture, male, unspecified site; I10 Essential (primary) hypertension; E11.9 Type 2 diabetes mellitus without complications; E78.5 Hyperlipidemia, unspecified; I25.10 Atherosclerotic heart disease of native coronary artery without angina pectoris; I25.2 Old myocardial infarction; Z79.84 Long term (current) use of oral hypoglycemic drugs; Z79.899 Other long term (current) drug therapy; Z87.891 Personal history of nicotine dependence; Z90.79 Acquired absence of other genital organ(s); Z95.5 Presence of coronary angioplasty implant and graft
CPT/HCPCS: 80048; 81001; 99282; A4216

== ENCOUNTER 2022-03-20 10:14 | Emergency (ER) | payer MEDICARE, OTHER, SELFPAY ==
[2022-03-20 10:15] VITALS: BP 135/85; PULSE 80; RESP 18; TEMP 36.6; O2SAT 96; BMI 22.1
--- NOTE | 2022-03-20 10:56 | EDS_ITS ---
HPI History of Present Illness Chief Complaint: Complaint Informant: patient and family Pain Onset: Weeks (1) Context: Sudden Onset (Since Bunn placed) Timing: Continuous Current Severity: Moderate Maximum Severity: Moderate Worsened by: Performing Valsalva Relieved by: Nothing Appearance Genital Edema: Yes Penile Discharge Genital Discharge Amount: Small Genital Discharge Color: White (Mucousy and scant amount of blood on occasion) Urinary Symptoms Genitourinary Symptoms: No Symptoms Narrative Narrative: Patient uncircumcised and had a urethral stricture for which he was treated about 1 week ago along with a Bunn. He had a remote TURP. He has been having pain in the penis ever since, and has developed occasional discharge from the urethral meatus around the catheter. The catheter has been draining urine just fine. He denies any abdominal pain. He denies any fevers or chills or hematuria in the bag, he has a scant amount of discharge and blood coming out from around the catheter on occasion. [facility] Medical History Atherosclerotic heart disease of [place] coronary artery without angina pectoris Diabetes mellitus Essential hypertension Fever Hyperlipidemia Old myocardial infarction Presence of stent in coronary artery (~06/09/08) Sinus bradycardia Ventricular tachycardia Home Medications tramadol 50 mg tablet 50 mg PO DAILY PRN 12/27/19 [History Last Taken Unknown] metformin 500 mg tablet 500 mg PO BID tab 06/01/21 [History Last Taken Unknown] ezetimibe [Zetia] 10 mg PO DAILY 09/27/21 [History Last Taken Unknown] liraglutide [Victoza 2-Marcio] 1.2 mg SQ DAILY 09/27/21 [History Last Taken Unknown] doxycycline monohydrate 100 mg PO BID #14 capsule 03/20/22 [Rx Last Taken Unknown] Allergy/AdvReac Type Severity Reaction Status Date / Time milk Allergy Intermediate upset Verified 03/20/22 10:17 stomach, diarrhea amoxicillin Allergy Unknown Verified 03/20/22 10:17 lactose AdvReac Intermediate GI issues Verified 03/20/22 10:17 Spoowcj-GNI-TaV Reductase AdvReac Myalgia Verified 03/20/22 10:17 Inhibitor [Dvrmpxe-Nxh-Pwj Reductase Inhibitor] Family History Father CAD (coronary artery disease) Mother CAD (coronary artery disease) Hyperlipidemia Brother CAD (coronary artery disease) Diabetes Sister Hypertension Surgical History History of left heart catheterization (12/17/18) Hx of cholecystectomy Presence of coronary angioplasty implant and graft (~06/09/08) S/P TURP (transurethral resection of prostate) (~2014) Social History Smoking Status: Former smoker Smokeless tobacco user: chewing tobacco how long ago did patient quit smoking: > 1 year ago alcohol intake: never substance use type: does not use caffeine: Yes Type: coffee ROS ROS ED Constitutional Constitutional ED: Denies chills or fever(s) Eyes Eyes: Denies change in vision or diplopia ENT ENT ED: Denies rhinorrhea or sore throat Cardiovascular Cardiovascular: Denies chest pain or palpitations Respiratory/Chest Respiratory/Chest: Denies cough or dyspnea Gastrointestinal Gastrointestinal: Denies abdominal pain, diarrhea, nausea or vomiting Genitourinary Genitourinary ED: Reports as per HPI; Denies dysuria or scrotal swelling Musculoskeletal Musculoskeletal: Denies back pain or neck pain Integumentary Denies abscess or rash Neurologic Neurologic: Denies headache(s), paresthesias or weakness Psychiatric Psychiatric: Denies anxiety or suicidal thoughts EXAM Physical Exam Const Vital Signs: 03/20/22 10:15 Temperature 98 F Temperature Source Temporal Pulse Rate 80 Respiratory Rate 18 Blood Pressure 135/85 H Blood Pressure Mean 101 Pulse Ox 96 Oxygen Delivery Method Room Air Positive well nourished and well developed General Appearance ED: well developed and NAD HEENT Reports moist mucous membranes normocephalic and atraumatic Eyes PERRL and EOMs intact bilaterally Neck full ROM and supple Resp normal respiratory effort GI non-tender and non-distended Auscultation: normoactive bowel sounds Palpation: soft Narrative: Bunn catheter in place. There is nontender edema of the foreskin. No phimosis or paraphimosis. Catheter appears to be draining there is nonbloody transparent yellow urine within it. There is no expressible discharge from the urethral meatus. Scrotum is nontender testicles nontender perineum nontender and normal-appearing. No subcutaneous emphysema. Back/Spine no CVA tenderness General Back: other FROM Neuro oriented x3, CN's II-XII intact bilaterally and no sensory deficits noted Sensorium / Orientation: awake and alert Motor Exam: strength 5/5 throughout Skin no rashes or lesions noted and no wounds MDM MDM MDM Narrative Medical decision making narrative: Patient is concerned it could be an infection. If he is having discharge there could be some urethritis, I have no trouble with putting him on some doxycycline, I sent a culture of his urine prior to starting it, and he will follow-up with his urologist and he is comfortable with that plan. He is already on tramadol for pain. Discharge Plan Triage Chief Complaint: Complaint ED Provider: Nav Milner Dx/Rx/DC Orders Clinical Impression: Urethritis, nonspecific, Urethral stricture Instructions: ED Urethritis Infec Vs Inflam ... Prescriptions: New doxycycline monohydrate 100 MG capsule 100 mg PO BID Qty: 14 RF: 0 No Action tramadol 50 mg tablet 50 mg PO DAILY PRN (Reason: Pain) RF: 0 metformin 500 mg tablet 500 mg PO BID RF: 0 ezetimibe [Zetia] 10 mg tablet 10 mg PO DAILY RF: 0 Victoza 2-Marcio 0.6 MG/0.1 ML pen injector 1.2 mg SQ DAILY RF: 0 Primary Care Provider: Lc Dowling Referrals: Lenard Giordano MD [STAFF PHYSICIAN] - Keep Venessa appointment Lc Dowling MD [Primary Care Provider] - Disposition Disposition: Home, Self Care Discharge Date/Time: 03/20/22 11:44
== END 2022-03-20 11:44 | disposition home or self-care (01) ==
PROVIDERS: Emergency Provider Emergency Medicine; PCP Family Medicine; Visit Provider Emergency Medicine
DX: N34.2 Other urethritis (principal); N35.919 Unspecified urethral stricture, male, unspecified site; I25.10 Atherosclerotic heart disease of native coronary artery without angina pectoris; I25.2 Old myocardial infarction; Z87.891 Personal history of nicotine dependence; Z95.5 Presence of coronary angioplasty implant and graft
CPT/HCPCS: 87086; 87088; 99282

== ENCOUNTER → 2022-07-19 | Outpatient (CLI) | payer MEDICARE, OTHER, SELFPAY ==
--- NOTE | 2022-07-19 08:10 | STRESSREP ---
Stress Test Report Date: 07-19-2022 Procedure: Exercise tolerance test/imaging study Indications: Chest pain; CAD; status post PCI Consent: Per the patient Procedure: The patient exercised on a Vic protocol for 6 minutes completing Stage II achieving a peak heart rate of 125 bpm (89% predicted maximal heart rate) with a peak blood pressure 168/60 mmHg and a peak MET capacity of 7 METs. The baseline ECG demonstrated normal sinus rhythm. The peak exercise ECG demonstrated somatic/motion artifact with the appearance of 0.[address] segment depression in leads II, III, aVF, and V4 through V6 with subsequent resolution to baseline in recovery. There were no cardiac dysrhythmias pretest, during exercise, or recovery. The functional capacity was considered good. There was no complaint of chest discomfort during exercise or recovery. The examination was discontinued secondary to fatigue. Impression: 1. Technically adequate (percent predicted maximal heart rate greater than 85%) exercise tolerance test 2. Peak exercise ECG with somatic/motion artifact with the appearance of 0.[address] segment depression in leads II, III, aVF, and V4 through V6 with subsequent resolution to baseline in recovery 3. There were no cardiac dysrhythmias pretest, during exercise, or recovery 4. Nuclear images pending Myocardial perfusion imaging study: Technique: The patient was injected with 11.8 mCi of technetium 99m Cardiolite and subsequently rest SPECT Cardiolite nuclear imaging was obtained in the horizontal long, vertical long, and short axis views. The patient exercised on a Vic protocol for 6 minutes completing Stage II achieving a peak heart rate of 125 bpm (89% predicted maximal heart rate) with a peak blood pressure 168/60 mmHg and a peak MET capacity of 7 METs. The patient was injected with 33.1 mCi of technetium 99m Cardiolite and subsequently stress SPECT Cardiolite nuclear imaging was obtained in the horizontal long, vertical long, and short axis views. A gated Cardiolite study at peak stress was obtained. Interpretation: Rest and stress SPECT Cardiolite nuclear imaging status post realignment, normalization, and attenuation correction, demonstrates the appearance of relative uniform tracer uptake and myocardial perfusion appearing within normal limits. There is end systolic thickening and brightening. The gated Cardiolite study demonstrates myocardial thickening and inward wall motion. The reported LVEF is 60%. Impression: 1. Rest and stress SPECT Cardiolite nuclear imaging demonstrate relative uniform tracer uptake and myocardial perfusion appearing within normal limits. 2. The gated Cardiolite study reports an LVEF of 60%. This note was generated with [employer] software. It may contain incorrect words, spelling, and punctuation that were not noted in checking the note before signing.
== END | disposition home or self-care (01) ==
PROVIDERS: PCP Family Medicine; Referring Provider Nurse Practitioner Family; Visit Provider Nurse Practitioner Family
DX: R07.9 Chest pain, unspecified (principal); I25.10 Atherosclerotic heart disease of native coronary artery without angina pectoris
CPT/HCPCS: 78452; 93017; A9500; A4216

== ENCOUNTER → 2022-11-15 | Outpatient (CLI) | payer MEDICARE, OTHER, SELFPAY ==
[2022-11-15 10:55] LABS: PSA,Total- Diagnostic 1.15 ng/mL (0.0-4.0)
== END | disposition home or self-care (01) ==
LOC: LAB 09:49
PROVIDERS: PCP Family Medicine; Visit Provider Urology
DX: N40.1 Benign prostatic hyperplasia with lower urinary tract symptoms (principal)
CPT/HCPCS: 36415; 84153

== ENCOUNTER 2022-12-20 15:45 | Emergency (ER) | payer MEDICARE, OTHER, SELFPAY ==
[2022-12-20 15:46] VITALS: BP 142/69; PULSE 71; RESP 15; TEMP 36.6; O2SAT 97; BMI 23.4
--- NOTE | 2022-12-20 16:30 | CT_ITS ---
EXAM: CT HEAD WITHOUT INTRAVENOUS CONTRAST CLINICAL INDICATION: trauma TECHNIQUE: Multiple axial images were obtained of the head without intravenous contrast. This CT exam was performed using one or more of the following dose reduction techniques: automated exposure control, adjustment of the mA and/or kV according to patient size, and/or use of iterative reconstruction technique. This report was created using [employer] technology. COMPARISON: None. FINDINGS: BRAIN AND EXTRA-AXIAL SPACES: There is enlargement of ventricular system and cortical sulci. There is hypoattenuation in the periventricular white matter. No intra- or extra-axial hemorrhage. No evidence of acute infarct. No intracranial mass or mass effect. There is preservation of the [place]o/white matter interface. Posterior fossa structures are unremarkable. Basal cisterns are patent. BONES/JOINTS: Unremarkable. No discrete lytic or blastic abnormalities. SINUSES: Unremarkable as visualized. Clear. MASTOID AIR CELLS: Unremarkable. Clear. ORBITS: Visualized globes, extraocular muscles, optic nerves and retrobulbar fat appear unremarkable. CT/Brain/Head without Contrast IMPRESSION: 1. No acute intracranial abnormality. 2. Underlying senescent change with small vessel ischemia. Electronically Signed: Quinten Rivera MD at 18:18 EST ,
--- NOTE | 2022-12-20 16:34 | EKG12_ITS ---
Test Reason : DIZZY Blood Pressure : / mmHG Vent. Rate : 073 BPM Atrial Rate : 073 BPM P-R Int : 208 ms QRS Dur : 096 ms QT Int : 388 ms P-R-T Axes : 000 022 071 degrees QTc Int : 427 ms Sinus rhythm with Premature atrial complexes Cannot rule out Anterior infarct , age undetermined Abnormal ECG Confirmed by YAMILEX MONSIVAIS, ESTEPHANIE ([id number]), video tape editor DALILA ALEJANDRE ([id number]) on 12/22/2022 9:37:54 AM Referred By: Confirmed By:ESTEPHANIE KAMINSKI MD
--- NOTE | 2022-12-20 16:49 | EX.ED.DYSGE1 ---
HPI History of Present Illness Chief Complaint: Dizziness Narrative Narrative: Patient presents with vertigo, when he bent down he developed significant vertigo, he started breathing pretty heavy and then had 1 episode of syncope. This only happens when he turns his head a certain way or bends over. He does not feel off balance. He may have hit his head when he fell. He has no recent fevers or chills no vision changes no weakness or paresthesias. [facility] Medical History Atherosclerotic heart disease of [place] coronary artery without angina pectoris Diabetes mellitus Essential hypertension Fever Hyperlipidemia Old myocardial infarction Presence of stent in coronary artery (~06/09/08) Sinus bradycardia Ventricular tachycardia Home Medications tramadol 50 mg tablet 50 mg PO DAILY PRN Pain 12/27/19 [History Last Taken Unknown] metformin 500 mg tablet 500 mg PO BID 06/01/21 [History Last Taken Unknown] ezetimibe 10 mg tablet (Zetia) 10 mg PO DAILY cholesterol 09/27/21 [History Last Taken Unknown] liraglutide 0.6 mg/0.1 mL (18 mg/3 mL) subcutaneous pen injector (Victoza 2-Marcio) 1.2 mg SQ DAILY 09/27/21 [History Last Taken Unknown] meclizine 25 mg tablet 25 mg PO 4X/DAY PRN PRN Dizziness #20 tabs 12/20/22 [Rx Last Taken Unknown] Allergy/AdvReac Type Severity Reaction Status Date / Time milk Allergy Intermediate upset Verified 12/20/22 15:48 stomach, diarrhea amoxicillin Allergy Unknown Verified 12/20/22 15:48 lactose AdvReac Intermediate GI issues Verified 12/20/22 15:48 [id number] Reductase AdvReac Myalgia Verified 12/20/22 15:48 Inhibitor Family History Father CAD (coronary artery disease) Mother CAD (coronary artery disease) Hyperlipidemia Brother CAD (coronary artery disease) Diabetes Sister Hypertension Surgical History History of dilation of urethra (~02/2022) History of left heart catheterization (12/17/18) Hx of cholecystectomy Presence of coronary angioplasty implant and graft (~08/18/08) S/P TURP (transurethral resection of prostate) (~2014) Social History Smoking Status: Former smoker Smokeless tobacco user: chewing tobacco how long ago did patient quit smoking: > 1 year ago alcohol intake: never substance use type: does not use caffeine: Yes Type: coffee ROS ROS ED ROS Narrative Past medical history: Reviewed Medications: Reviewed Social history: Noncontributory Review of systems: All systems negative except as indicated General: No fever. Lightheadedness as in HPI Eyes: No visual changes ENT: No upper airway congestion, normal voice Neck: No neck pain Cardiovascular: No chest pain. Syncope as in HPI Respiratory: No shortness of breath or cough Gastrointestinal: No abdominal pain, nausea vomiting or diarrhea Genitourinary: No dysuria Musculoskeletal: Denies myalgias no difficulty with ambulation Skin: No rash Neurological: No memory loss, confusion or any focal weakness EXAM Physical Exam Narrative Exam Narrative: Physical exam General: Patient appears relatively comfortable Head: Normocephalic, Atraumatic Eyes: Conjunctiva not pale. No nystagmus. There is slight rightward saccade ENT: Moist mucous membranes Neck: Supple, Nontender, No lymphadenopathy Cardiovascular: Regular rate, Regular rhythm Respiratory: No distress, CTA bilaterally Abdomen: Soft, Nontender, Nondistended Back: Nontender, Normal Inspection. Negative for: CVA tenderness Extremities: Nontender, No edema Skin: Normal color, No rash Neurological: Alert, Normal Strength, Normal Sensation. Normal cerebellar. Normal Romberg and gait. Psychological: Normal affect Const Vital Signs: 12/20/22 15:46 12/20/22 17:13 12/20/22 17:13 Temperature 98 F Temperature Source Temporal Pulse Rate 71 Pulse Rate [Lying] 72 Pulse Rate [Sitting (for 1 minute prior to obtaining)] 74 Pulse Rate [Standing (for 1 minute prior to obtaining)] 81 Respiratory Rate 15 Respiratory Effort Normal Blood Pressure 142/69 H Blood Pressure [Lying] 120/72 Blood Pressure [Sitting (for 1 minute prior to obtaining)] 112/61 Blood Pressure [Standing (for 1 minute prior to obtaining)] 117/68 Blood Pressure Mean 93 Blood Pressure Mean [Lying] 88 Blood Pressure Mean [Sitting (for 1 minute prior to obtaining)] 78 Blood Pressure Mean [Standing (for 1 minute prior to obtaining)] 84 Pulse Ox 97 Oxygen Delivery Method Room Air [facility] Lab Data Labs: Laboratory Results - last 24 hr 12/20/22 12/20/22 12/20/22 17:11 17:14 17:14 WBC 12.3 H RBC 4.74 Hgb 15.5 Hct 43.9 MCV 92.6 MCH 32.7 H MCHC 35.3 RDW Std Deviation 40.6 RDW Coeff of Mirtha 11.8 Plt Count 323 MPV 10.0 Immature Gran % (Auto) 0.600 Neut % (Auto) 82.5 H Lymph % (Auto) 10.8 L Mcclain % (Auto) 5.4 Eos % (Auto) 0.4 Baso % (Auto) 0.3 Absolute Neuts (auto) 10.1 H Absolute Lymphs (auto) 1.33 Nucleated RBC % 0 PT 12.2 INR 0.9 Sodium Potassium Chloride Carbon Dioxide Anion Gap BUN Creatinine Estim Creat Clear Calc Est GFR (MDRD) Af Amer Est GFR (MDRD) Non-Af BUN/Creatinine Ratio Glucose Calcium Total Bilirubin AST ALT Alkaline Phosphatase Troponin I High Sens Total Protein Albumin Globulin Albumin/Globulin Ratio Urine Color Yellow Urine Clarity Clear Urine pH 5.0 Ur Specific [place] 1.020 Urine Protein 15 H Urine Glucose (UA) 50 H Urine Ketones 5 H Urine Occult Blood Negative Urine Nitrite Negative Urine Bilirubin Negative Urine Urobilinogen Normal Ur Leukocyte Esterase Negative Urine RBC 0 SEEN Urine WBC 0-5 SEEN Ur Squamous Epith Cells 0 SEEN Urine Bacteria 0 SEEN Urine Mucus 0 SEEN 12/20/22 17:14 WBC RBC Hgb Hct MCV MCH MCHC RDW Std Deviation RDW Coeff of Mirtha Plt Count MPV Immature Gran % (Auto) Neut % (Auto) Lymph % (Auto) Mcclain % (Auto) Eos % (Auto) Baso % (Auto) Absolute Neuts (auto) Absolute Lymphs (auto) Nucleated RBC % PT INR Sodium 138 Potassium 4.2 Chloride 104 Carbon Dioxide 27.0 Anion Gap 7 BUN 18 Creatinine 0.90 Estim Creat Clear Calc 65.46 Est GFR (MDRD) Af Amer 105 Est GFR (MDRD) Non-Af 87 BUN/Creatinine Ratio 20.1 H Glucose 197 H Calcium 9.3 Total Bilirubin 0.50 AST 12 L ALT 19 Alkaline Phosphatase 93 Troponin I High Sens 5 Total Protein 7.3 Albumin 3.8 Globulin 3.5 Albumin/Globulin Ratio 1.1 Urine Color Urine Clarity Urine pH Ur Specific [place] Urine Protein Urine Glucose (UA) Urine Ketones Urine Occult Blood Urine Nitrite Urine Bilirubin Urine Urobilinogen Ur Leukocyte Esterase Urine RBC Urine WBC Ur Squamous Epith Cells Urine Bacteria Urine Mucus Radiography Diagnostic Testing: Clinical Impression(s) from Imaging Studies Brain CT 12/20/22 16:30 IMPRESSION: 1. No acute intracranial abnormality. 2. Underlying senescent change with small vessel ischemia. Electronically Signed: Quinten Rivera MD at 18:18 EST , Chest X-Ray 12/20/22 17:00 IMPRESSION: No radiographic evidence of acute cardiopulmonary disease. Electronically Signed: Quinten Rivera MD at 17:28 EST , Chest x-ray read by me as normal EKG Initial EKG: Comments: Sinus rhythm with a rate of 73. Normal NE and QTc intervals. Normal ST and T waves. Treatment and Re-Evaluation Narrative: A. Problems addressed Patient has vertigo but he also has some lightheadedness, he is worse when he stands up, at the bedside his heart rate was in the mid 60s when I was talking to him and I laid him down. However when I stood him up his heart rate went into the 90s and felt somewhat lightheaded. He is given IV fluids and is slightly improved however he got up to go the bathroom bend over and had another episode of vertigo which only lasted a few seconds until he laid down and then his symptoms went away. He likely has benign paroxysmal positional vertigo. He does have a normal exam and normal CT. I gave him Valium in the ED and I will give him meclizine for home. If anything changes he is to return. I will refer him to ENT. I do not believe the patient has a stroke. He did have some dehydration which improved some of her lightheadedness. B. Amount and/or complexity of the data 1. CBC CMP troponin and coags read by me I discussed the patient with son who was in the room 2. Independent interpretation of test Telemetry: Sinus rhythm with a rate in the 70s with PACs. C. Risk of complications and/or morbidity Differential diagnosis: See above I have thought about admitting the patient, but Discharge Plan Triage Chief Complaint: Dizziness ED Provider: Tanner Mckeon Dx/Rx/DC Orders Clinical Impression: Vertigo, Dehydration Instructions: ED BPV Vertigo, ED Dehydration (Adult) Prescriptions: New meclizine 25 mg tablet 25 mg PO 4X/DAY PRN PRN (Reason: Dizziness) Qty: 20 0RF No Action tramadol 50 mg tablet 50 mg PO DAILY PRN (Reason: Pain) metformin 500 mg tablet 500 mg PO BID Label Comments: diabetic ezetimibe [Zetia] 10 mg tablet 10 mg PO DAILY Victoza 2-Marcio 0.6 MG/0.1 ML pen injector 1.2 mg SQ DAILY Rx Instructions: 0.6 mg SQ daily for 1 week, then 1.2 mg daily after that Primary Care Provider: Lc Dowling Referrals: Isai Cardenas MD [Med Staff - Active Staff] - 3-5 Days Lc Dowling MD [Primary Care Provider] - 3-5 Days Disposition Disposition: Home, Self Care
--- NOTE | 2022-12-20 17:00 | RAD_ITS ---
EXAM: XR CHEST, 1 VIEW CLINICAL INDICATION: weakness TECHNIQUE: Frontal view of the chest. This report was created using [employer] report generation technology. COMPARISON: 09/30/2021 FINDINGS: LUNGS AND PLEURAL SPACES: Unremarkable. No consolidation or edema. No pneumothorax. No effusion. HEART: Unremarkable. Cardiac silhouette not enlarged. MEDIASTINUM: Central airways and mediastinal contour are unremarkable. BONES/JOINTS: Unremarkable. SOFT TISSUES: Unremarkable. RAD/Chest 1 View (Portable) IMPRESSION: No radiographic evidence of acute cardiopulmonary disease. Electronically Signed: Quinten Rivera MD at 17:28 EST ,
[2022-12-20 17:13] VITALS: BP 112/61; BP 117/68; BP 120/72; PULSE 72; PULSE 74; PULSE 81
[2022-12-20 17:18] LABS: Bacteria 0 SEEN /hpf (None Seen); Mucous, Urine 0 SEEN /hpf (<or=2+); Red Blood Cells-Urine 0 SEEN /hpf (0-5); Squamous Epithelial Cells - UA 0 SEEN /hpf (0-5)
[2022-12-20 17:21] LABS: Color, Urine Yellow (Yellow); Glucose, Dipstick 50 mg/dl (Normal); Ketone-Dipstick 5 mg/dl (Negative); Leukocyte Esterase-Dipstick Negative /ul (Negative); Nitrite-Dipstick Negative (Negative); Occult Blood-Urine Negative /ul (Negative); Protein-Dipstick 15 mg/dl (Negative); Urine Bilirubin Dipstick Negative (Negative); Urine Clarity Clear (Clear); Urine Urobilinogen Normal (Normal)
[2022-12-20 17:23] LABS: Absolute Lymphocyte Count 1.33 X10^3/uL (0.83-4.51); Absolute Neutrophil Count 10.1 X10^3/uL (2.0-7.7); Basophil# 0.04 X10^3/uL; Basophil% 0.3 % (0-1); Eosinophil# 0.05 X10^3/uL; Eosinophils% 0.4 % (0-5); Hematocrit 43.9 % (40-54); Hemoglobin 15.5 g/dL (13.0-16.5); Lymphocyte # 1.33 X10^3/ul (0.83-4.51); Lymphocyte % 10.8 % (19-41); Mean Corp Hgb Conc 35.3 g/dL (32-36); Mean Corpuscular Hgb 32.7 pg (27.0-32.0); Mean Corpuscular Volume 92.6 fL (80-94); Monocyte# 0.66 X10^3/uL; Monocyte% 5.4 % (0-10); NRBC Flagged by Analyzer 0 % (0-5); Neutrophil # 10.12 X10^3/uL (2.7-7.7); Neutrophil % 82.5 % (47-70); Platelet Count 323 K/mm3 (150-450); RBC Distribution Width CV 11.8 % (11.6-14.6); RBC Distribution Width SD 40.6 fl (35.1-43.9); Red Blood Count 4.74 M/mm3 (4.6-6.2); White Blood Count 12.3 K/mm3 (4.4-11.0)
[2022-12-20 17:27] LABS: White Blood Cells 0-5 SEEN /hpf (0-5)
[2022-12-20] MEDS: 0.9% Normal Saline 1,000 ML 1000 ML IV (17:32)
[2022-12-20 17:43] LABS: International Normalized Ratio 0.9; Prothrombin Time (Protime)PT. 12.2 SECONDS (11.7-14.9)
[2022-12-20 17:50] LABS: ALB/GLOB Ratio 1.1 RATIO (0.9-2.4); AST(SGOT) 12 U/L (15-37); Alanine Aminotransfer ALT/SGPT 19 U/L (16-61); Albumin, Serum 3.8 g/dL (3.2-5.0); Alkaline Phosphatase 93 U/L (45-117); Anion Gap 7 (5-15); BUN 18 mg/dL (7-18); BUN/Creat Ratio 20.1 RATIO (10-20); Calcium,Total 9.3 mg/dL (8.5-10.1); Chloride 104 mmol/L (98-107); EST Glomerular Filtration Rate 87 mL/min (>60); Est Glom Filt Rate - Afr Amer 105 mL/min (>60); Estimated Creatinine Clearance 65.46 ml/min; Globulin 3.5 g/dL (2.2-4.2); Glucose 197 mg/dL (74-106); Potassium 4.2 mmol/L (3.5-5.1); Protein, Total 7.3 g/dL (6.4-8.2); Sodium Level 138 mmol/L (136-145); Troponin-I HS 5 pg/mL (3.0-78.0)
[2022-12-20] MEDS: diazePAM 5 MG Tablet PO (20:24)
[2022-12-20 20:55] VITALS: BP 170/76; PULSE 72; RESP 18; O2SAT 97
== END 2022-12-20 20:59 | disposition home or self-care (01) ==
PROVIDERS: Emergency Provider Emergency Medicine; PCP Family Medicine; Visit Provider Emergency Medicine
DX: R55 Syncope and collapse (principal); E11.9 Type 2 diabetes mellitus without complications; I10 Essential (primary) hypertension; E86.0 Dehydration; Z87.891 Personal history of nicotine dependence; E78.5 Hyperlipidemia, unspecified; I25.10 Atherosclerotic heart disease of native coronary artery without angina pectoris
CPT/HCPCS: 70450; 71045; 80053; 81001; 84484; 85025; 85610; 93005; 96360; 99285; J7030; A4216

== ENCOUNTER → 2023-02-21 | Outpatient (CLI) | payer MEDICARE, OTHER, SELFPAY ==
[2023-02-21 11:09] LABS: Absolute Lymphocyte Count 1.46 X10^3/uL (0.83-4.51); Absolute Neutrophil Count 5.4 X10^3/uL (2.0-7.7); Basophil# 0.05 X10^3/uL; Basophil% 0.6 % (0-1); Eosinophil# 0.16 X10^3/uL; Eosinophils% 2.1 % (0-5); Hematocrit 45.2 % (40-54); Hemoglobin 15.1 g/dL (13.0-16.5); Lymphocyte # 1.46 X10^3/ul (0.83-4.51); Lymphocyte % 18.7 % (19-41); Mean Corp Hgb Conc 33.4 g/dL (32-36); Mean Corpuscular Hgb 31.9 pg (27.0-32.0); Mean Corpuscular Volume 95.4 fL (80-94); Mean Platelet Vol. 10.6 fl (6.2-12.0); Monocyte# 0.66 X10^3/uL; Monocyte% 8.5 % (0-10); NRBC Flagged by Analyzer 0 % (0-5); Neutrophil # 5.42 X10^3/uL (2.7-7.7); Neutrophil % 69.6 % (47-70); Platelet Count 320 K/mm3 (150-450); RBC Distribution Width CV 11.5 % (11.6-14.6); RBC Distribution Width SD 40.4 fl (35.1-43.9); Red Blood Count 4.74 M/mm3 (4.6-6.2); White Blood Count 7.8 K/mm3 (4.4-11.0)
[2023-02-21 11:46] LABS: ALB/GLOB Ratio 0.9 RATIO (0.9-2.4); AST(SGOT) 14 U/L (15-37); Alanine Aminotransfer ALT/SGPT 23 U/L (16-61); Albumin, Serum 3.6 g/dL (3.2-5.0); Alkaline Phosphatase 111 U/L (45-117); Anion Gap 5 (5-15); BUN 19 mg/dL (7-18); BUN/Creat Ratio 19.1 RATIO (10-20); Calcium,Total 9.2 mg/dL (8.5-10.1); Chloride 104 mmol/L (98-107); Cholesterol 193 mg/dL (200); EST Glomerular Filtration Rate 77 mL/min (>60); Est Glom Filt Rate - Afr Amer 93 mL/min (>60); Globulin 3.8 g/dL (2.2-4.2); Glucose 230 mg/dL (74-106); High Density Lipoprotein 51 mg/dL; Potassium 4.6 mmol/L (3.5-5.1); Protein, Total 7.4 g/dL (6.4-8.2); Sodium Level 139 mmol/L (136-145); Triglycerides 335 mg/dL; Very Low Density Lipoprotein 67 mg/dL (5-40)
== END | disposition home or self-care (01) ==
LOC: LAB 10:18
PROVIDERS: PCP Nurse Practitioner Family; Referring Provider Nurse Practitioner Family; Visit Provider Nurse Practitioner Family
DX: Z00.00 Encounter for general adult medical examination without abnormal findings (principal); E55.9 Vitamin D deficiency, unspecified; I25.10 Atherosclerotic heart disease of native coronary artery without angina pectoris; E78.00 Pure hypercholesterolemia, unspecified
CPT/HCPCS: 36415; 80053; 80061; 82306; 85025

== ENCOUNTER → 2024-02-12 | Outpatient (CLI) | payer MEDICARE, OTHER, SELFPAY ==
[2024-02-12 12:09] LABS: Absolute Neutrophil Count 6.1 X10^3/uL (2.0-7.7); Basophil# 0.05 X10^3/uL; Basophil% 0.6 % (0-1); Eosinophil# 0.12 X10^3/uL; Eosinophils% 1.4 % (0-5); Hematocrit 43.5 % (40-54); Hemoglobin 14.5 g/dL (13.0-16.5); Lymphocyte % 17.6 % (19-41); Mean Corp Hgb Conc 33.3 g/dL (32-36); Mean Corpuscular Hgb 31.7 pg (27.0-32.0); Mean Platelet Vol. 10.8 fl (6.2-12.0); Monocyte# 0.73 X10^3/uL; Monocyte% 8.6 % (0-10); NRBC Flagged by Analyzer 0 % (0-5); Neutrophil # 6.06 X10^3/uL (2.7-7.7); Neutrophil % 71.2 % (47-70); Platelet Count 341 K/mm3 (150-450); RBC Distribution Width CV 11.9 % (11.6-14.6); RBC Distribution Width SD 41.3 fl (35.1-43.9); Red Blood Count 4.58 M/mm3 (4.6-6.2); White Blood Count 8.5 K/mm3 (4.4-11.0)
[2024-02-12 12:26] LABS: ALB/GLOB Ratio 1.2 RATIO (0.9-2.4); AST(SGOT) 11 U/L (15-37); Alanine Aminotransfer ALT/SGPT 16 U/L (16-61); Albumin, Serum 3.6 g/dL (3.2-5.0); Alkaline Phosphatase 79 U/L (45-117); Anion Gap 6 (5-15); BUN 24 mg/dL (7-18); BUN/Creat Ratio 29.1 RATIO (10-20); Calcium,Total 8.9 mg/dL (8.5-10.1); Chloride 103 mmol/L (98-107); Cholesterol 142 mg/dL (200); Creatinine, Serum 0.82 mg/dL (0.70-1.30); EST Glomerular Filtration Rate 95 mL/min (>60); Est Glom Filt Rate - Afr Amer 115 mL/min (>60); Globulin 3.1 g/dL (2.2-4.2); Glucose 253 mg/dL (74-106); High Density Lipoprotein 58 mg/dL; Potassium 4.4 mmol/L (3.5-5.1); Protein, Total 6.7 g/dL (6.4-8.2); Sodium Level 137 mmol/L (136-145); Triglycerides 228 mg/dL; Very Low Density Lipoprotein 46 mg/dL (5-40)
[2024-02-12 12:38] LABS: Vitamin D,25 Hydroxy 37.4 ng/mL
== END | disposition home or self-care (01) ==
LOC: BFHLAB 10:24
PROVIDERS: PCP Nurse Practitioner Family; Referring Provider Nurse Practitioner Family; Visit Provider Nurse Practitioner Family
DX: I25.10 Atherosclerotic heart disease of native coronary artery without angina pectoris (principal); E11.9 Type 2 diabetes mellitus without complications; E55.9 Vitamin D deficiency, unspecified; E78.00 Pure hypercholesterolemia, unspecified
CPT/HCPCS: 36415; 80053; 80061; 82306; 85025

== ENCOUNTER → 2024-06-11 | Outpatient (CLI) | payer MEDICARE, OTHER, SELFPAY ==
[2024-06-11 11:19] LABS: Hematocrit 43.1 % (40-54); Hemoglobin 14.4 g/dL (13.0-16.5); Mean Corp Hgb Conc 33.4 g/dL (32-36); Mean Corpuscular Hgb 31.6 pg (27.0-32.0); Mean Corpuscular Volume 94.5 fL (80-94); Mean Platelet Vol. 9.9 fl (6.2-12.0); Platelet Count 327 K/mm3 (150-450); RBC Distribution Width CV 11.7 % (11.6-14.6); RBC Distribution Width SD 40.7 fl (35.1-43.9); Red Blood Count 4.56 M/mm3 (4.6-6.2); White Blood Count 7.1 K/mm3 (4.4-11.0)
[2024-06-11 11:42] LABS: Anion Gap 2 (5-15); BUN 21 mg/dL (7-18); BUN/Creat Ratio 29.7 RATIO (10-20); Calcium,Total 9.5 mg/dL (8.5-10.1); Chloride 107 mmol/L (98-107); Creatinine, Serum 0.71 mg/dL (0.70-1.30); EST Glomerular Filtration Rate 114 mL/min (>60); Est Glom Filt Rate - Afr Amer 137 mL/min (>60); Glucose 142 mg/dL (74-106); Potassium 4.1 mmol/L (3.5-5.1); Sodium Level 140 mmol/L (136-145)
== END | disposition home or self-care (01) ==
LOC: LAB 10:59
PROVIDERS: PCP Nurse Practitioner Family; Referring Provider Urology; Visit Provider Urology
DX: Z01.812 Encounter for preprocedural laboratory examination (principal)
CPT/HCPCS: 36415; 80048; 85027

== ENCOUNTER → 2024-10-01 | Outpatient (CLI) | payer MEDICARE, OTHER, SELFPAY ==
--- NOTE | 2024-10-01 13:13 | RAD_ITS ---
STUDY: X-RAY - SACRUM/COCCYX REASON FOR EXAM: Male, 83 years old. Fell backwards. Rule out fracture TECHNIQUE: 3 views of the sacrum and coccyx were obtained. COMPARISON: None. 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 On the lateral view, there is discontinuity of the anterior cortex of the sacrum at the level of S4, concerning for a fracture. Normal visualized sacral ala and fused sacral bodies. Normal sacrococcygeal junction with a normal angulation. Normal coccygeal segments. RAD/Sacrum-Coccyx min 2 Views IMPRESSION: Suspected fracture at S4. Electronically Signed: Kevin Fisher MD at 15:26 EST ,
== END | disposition home or self-care (01) ==
LOC: MTRAD 13:10
PROVIDERS: PCP Nurse Practitioner Family; Referring Provider Nurse Practitioner Family; Visit Provider Nurse Practitioner Family
DX: M53.3 Sacrococcygeal disorders, not elsewhere classified (principal)
CPT/HCPCS: 72220

== ENCOUNTER → 2024-12-23 | Outpatient (CLI) | payer MEDICARE, OTHER, SELFPAY ==
[2024-12-23 10:49] LABS: Cholesterol 152 mg/dL (<=200); High Density Lipoprotein 58 mg/dL; Low Density Lipoprotein Calc. 61 mg/dL; Triglycerides 168 mg/dL; Very Low Density Lipoprotein 34 mg/dL (5-40); cholesterol:hdl ratio screen 2.63
== END | disposition home or self-care (01) ==
PROVIDERS: PCP Nurse Practitioner Family; Referring Provider Internal Medicine Cardiovascular Disease; Visit Provider Internal Medicine Cardiovascular Disease
DX: E78.5 Hyperlipidemia, unspecified (principal)
CPT/HCPCS: 36415; 80061

== ENCOUNTER → 2025-02-26 | Outpatient (CLI) | payer MEDICARE, OTHER, SELFPAY ==
[2025-02-26 12:37] LABS: ALB/GLOB Ratio 1.3 RATIO (0.9-2.4); AST(SGOT) 13 U/L (<=37); Alanine Aminotransfer ALT/SGPT 13 U/L (<=46); Albumin, Serum 4.2 g/dL (3.4-4.8); Alkaline Phosphatase 118 U/L (40-129); Anion Gap 11 (5-15); BUN 21 mg/dL (4-19); BUN/Creat Ratio 25.4 RATIO (10-20); Bilirubin, Direct 0.23 mg/dL (0.00-0.30); Calcium,Total 9.6 mg/dL (7.6-11.0); Carbon Dioxide 26.4 mmol/L (21.0-32.0); Chloride 97 mmol/L (98-108); Cholesterol 157 mg/dL (<=200); Creatinine, Serum 0.83 mg/dL (0.70-1.20); EST Glomerular Filtration Rate 87 (>60); Globulin 3.2 g/dL (2.2-4.2); Glucose 364 mg/dL (70-99); High Density Lipoprotein 57 mg/dL; Low Density Lipoprotein Calc. 74 mg/dL; Potassium 4.6 mmol/L (3.3-5.1); Protein, Total 7.4 g/dL (5.9-8.4); Sodium Level 135 mmol/L (133-145); Total Bilirubin 0.52 mg/dL (0.00-1.30); Triglycerides 132 mg/dL; Very Low Density Lipoprotein 26 mg/dL (5-40); cholesterol:hdl ratio screen 2.76
== END | disposition home or self-care (01) ==
LOC: LAB 09:46
PROVIDERS: Internal Medicine Cardiovascular Disease; PCP Nurse Practitioner Family; Referring Provider Nurse Practitioner Family; Visit Provider Nurse Practitioner Family
DX: I10 Essential (primary) hypertension (principal); E78.00 Pure hypercholesterolemia, unspecified
CPT/HCPCS: 80053; 80061; 82248

== ENCOUNTER → 2025-03-24 | Outpatient (CLI) | payer MEDICARE, OTHER, SELFPAY | END | disposition home or self-care (01) | PROVIDERS: PCP Nurse Practitioner Family; Referring Provider Nurse Practitioner Family; Visit Provider Nurse Practitioner Family | DX: R00.1 Bradycardia, unspecified (principal) | CPT/HCPCS: 93225; 93226 ==

== ENCOUNTER → 2025-04-30 | Outpatient (CLI) | payer MEDICARE, OTHER, SELFPAY ==
[2025-04-30 12:43] LABS: Hematocrit 43.6 % (40-54); Hemoglobin 14.5 g/dL (13.0-16.5); Immature Granulocytes Count 0.050 X10^3/uL (0.0-0.0); Mean Corp Hgb Conc 33.3 g/dL (32-36); Mean Corpuscular Volume 94.4 fL (80-94); Mean Platelet Vol. 10.7 fl (6.2-12.0); NRBC Flagged by Analyzer 0 % (0-5); Platelet Count 268 K/mm3 (150-450); RBC Distribution Width CV 11.8 % (11.6-14.6); RBC Distribution Width SD 40.4 fl (35.1-43.9); Red Blood Count 4.62 M/mm3 (4.6-6.2); White Blood Count 7.2 K/mm3 (4.4-11.0)
[2025-04-30 14:03] LABS: AST(SGOT) 15 U/L (<=37); Alanine Aminotransfer ALT/SGPT 17 U/L (<=46); Albumin, Serum 4.1 g/dL (3.4-4.8); Alkaline Phosphatase 85 U/L (40-129); Anion Gap 11 (5-15); BUN 16 mg/dL (4-19); BUN/Creat Ratio 21.7 RATIO (10-20); Calcium,Total 9.2 mg/dL (7.6-11.0); Carbon Dioxide 24.7 mmol/L (21.0-32.0); Chloride 103 mmol/L (98-108); Cholesterol 163 mg/dL (<=200); Globulin 2.7 g/dL (2.2-4.2); Glucose 233 mg/dL (70-99); Low Density Lipoprotein Calc. 73 mg/dL; PSA,Total - Annual Screen 0.74 ng/mL (0.02-4.00); Potassium 4.6 mmol/L (3.3-5.1); Triglycerides 133 mg/dL; Very Low Density Lipoprotein 27 mg/dL (5-40); Vitamin D,25 Hydroxy 30.0 ng/mL (30-100); cholesterol:hdl ratio screen 2.57
== END | disposition home or self-care (01) ==
LOC: BFHLAB 10:23
PROVIDERS: PCP Nurse Practitioner Family; Visit Provider Nurse Practitioner Family
DX: I25.10 Atherosclerotic heart disease of native coronary artery without angina pectoris (principal); E11.9 Type 2 diabetes mellitus without complications; E78.00 Pure hypercholesterolemia, unspecified; E55.9 Vitamin D deficiency, unspecified; Z12.5 Encounter for screening for malignant neoplasm of prostate
CPT/HCPCS: 36415; 80053; 80061; 82306; 84153; 85025; G0103